=== PATIENT | male | born 1975 ===

== ENCOUNTER 2016-11-16 00:18 | Inpatient (IN) | payer MEDICARE, BC ==
[2016-11-16] MEDS ORDERED: Sodium Chloride 0.9% 1,000 ML IV STA ×2 (00:46→00:53)
[2016-11-16] MEDS ORDERED: Insulin Regular 100 units/ml IV ONE (00:53)
[2016-11-16 01:01] LABS: BASO # 0.1 K/uL (0.0-0.2); BASO % 0.6 % (0.0-2.0); HEMATOCRIT 34.9 % (35.0-51.0); LYMPH # 0.4 K/uL (1.0-4.3); LYMPH % 2.9 % (20.0-40.0); MEAN CELL VOLUME 97.7 fl (80.0-94.0); MEAN CORPUSCULAR HEMOGLOBIN 31.4 pg (27.0-31.0); MEAN CORPUSCULAR HGB CONC 32.1 g/dL (33.0-37.0); MEAN PLATELET VOLUME 8.1 fl (7.2-11.7); MONO # 0.4 K/uL (0.0-0.8); MONO % 2.9 % (0.0-10.0); NEUT # 11.3 K/uL (1.8-7.0); NEUT % 93.6 % (50.0-75.0); PLATELET COUNT 213 K/uL (130-400); RED CELL DISTRIBUTION WIDTH 14.9 % (11.5-14.5); WHITE BLOOD COUNT 12.1 K/uL (4.8-10.8)
[2016-11-16 01:16] LABS: ABG ALLEN TEST YES; ARTERIAL BLOOD GAS HCO3 15.2 mmol/L (21-28); ARTERIAL BLOOD GAS MODE ROOM AIR; ARTERIAL BLOOD GAS PH 7.25 (7.35-7.45); ARTERIAL BLOOD GAS PO2 80 mm/Hg (80-100)
[2016-11-16 01:31] LABS: PARTIAL THROMBOPLASTIN TIME 26.7 SECONDS (23.3-32.5)
--- NOTE | 2016-11-16 01:35 | CP.PCM.HP ---
Past Patient History - Infectious Disease Hx of Infectious Diseases: None - Past Medical History & Family History Past Medical History?: Yes - Past Social History Smoking Status: Heavy Smoker > 10 Cigarettes Daily - CARDIAC Hx Hypercholesterolemia: Yes Hx Hypertension: Yes - PULMONARY Hx Respiratory Disorders: No Other/Comment: (+) smoker - NEUROLOGICAL Hx Neurological Disorder: No - HEENT Hx HEENT Problems: No - RENAL Hx Chronic Kidney Disease: Yes Hx Dialysis: Yes - ENDOCRINE/METABOLIC Hx Endocrine Disorders: Yes Hx Diabetes Mellitus Type 1: Yes (with insulin pump) Hx Diabetes Mellitus Type 2: Yes - HEMATOLOGICAL/ONCOLOGICAL Hx Anemia: Yes Hx Hepatitis A: Yes Hx Human Immunodeficiency Virus (HIV): No - INTEGUMENTARY Hx Dermatological Problems: No Other/Comment: hx of skin abscesses - MUSCULOSKELETAL/RHEUMATOLOGICAL Hx Musculoskeletal Disorders: No Hx Falls: No - GASTROINTESTINAL Hx Gastrointestinal Disorders: Yes Hx Colostomy: Yes (due to int abcess, reversed) Other/Comment: reversed colostomy - GENITOURINARY/GYNECOLOGICAL Hx Genitourinary Disorders: No - PSYCHIATRIC Hx Anxiety: Yes Hx Depression: Yes Hx Substance Use: Yes (fannie) - SURGICAL HISTORY Hx Surgeries: Yes Other/Comment: left AV fistula and reversed colostomy - ANESTHESIA Hx Anesthesia: Yes Hx Anesthesia Reactions: No Hx Malignant Hyperthermia: No Meds Allergies/Adverse Reactions: Allergies Allergy/AdvReac Type Severity Reaction Status Date / Time Penicillins Allergy RASH Verified 11/28/15 14:32 Results - Vital Signs Recent Vital Signs: Last Vital Signs Temp 97.6 F 11/16/16 00:33 Pulse 100 H 11/16/16 00:33 Resp 18 11/16/16 00:33 BP 213/100 H 11/16/16 00:33 Pulse Ox 100 11/16/16 00:33 - Labs Result Diagrams: 11/16/16 00:50 Labs: Laboratory Results - last 24 hr 11/16/16 11/16/16 11/16/16 00:50 00:50 01:02 WBC 12.1 H RBC 3.57 L Hgb 11.2 L Hct 34.9 L MCV 97.7 H MCH 31.4 H MCHC 32.1 L RDW 14.9 H Plt Count 213 MPV 8.1 Neut % (Auto) 93.6 H Lymph % (Auto) 2.9 L Franklin % (Auto) 2.9 Eos % (Auto) 0.0 Baso % (Auto) 0.6 Neut # 11.3 H Lymph # 0.4 L Franklin # 0.4 Eos # 0.0 Baso # 0.1 PT 10.7 INR 1.03 APTT 26.7 pCO2 31 L pO2 80 HCO3 15.2 L ABG pH 7.25 L ABG Total CO2 14.6 L ABG O2 Saturation 98.6 H ABG Base Excess -12.4 L Abilio Test Yes ABG Potassium 6.1 H A-a O2 Difference 31.0 Sodium 121.0 L Chloride 81.0 L Glucose > 750 H* Lactate 2.7 H Vent Mode Room air FiO2 21.0 Crit Value Called To sanjeev Fajardo md Crit Value Called By Sb Crit Value Read Back Y Blood Gas Notified Time 115 Arterial Blood Potassium 6.1 H
[2016-11-16 01:38] LABS: ALB/GLOB RATIO 1.8 (1.0-2.1); ALCOHOL SERUM < 10 mg/dl (0-10); ALKALINE PHOSPHATASE 90 U/L (38-126); ALT/SGPT 18 U/L (21-72); AST/SGOT 21 U/L (17-59); BILIRUBIN,TOTAL 0.9 mg/dl (0.2-1.3); BLOOD UREA NITROGEN 81 mg/dl (9-20); CALCIUM 9.9 mg/dL (8.4-10.2); CHLORIDE 83 mmol/L (98-107); LIPASE 133 U/L (23-300); SODIUM 122 mmol/l (132-148); TOTAL PROTEIN 7.7 G/DL (6.3-8.2)
--- NOTE | 2016-11-16 01:45 | ED PDOC ---
Hyperglycemia/Hypoglycemia Time Seen by Provider: 11/16/16 00:28 Chief Complaint (Nursing): GI Problem Chief Complaint (Provider): Nausea, Vomiting, Hyperglycemia History Per: Patient History/Exam Limitations: no limitations Onset/Duration Of Symptoms: Days (1 day) Current Symptoms Are (Timing): Still Present Current Diabetic Medications: Insulin (Insulin pump) Associated Infectious Symptoms: denies: Cough : The patient does not have any of the infectious symptoms listed except for those marked. Additional Complaint(s): Yoni Davila, a 41 year old male, who has a PMHx of type 1 diabetes( on insulin pump) and end stage renal disease presents to the ED with nausea, vomiting and hyperglycemia (x1day). The patient reports having current vomiting that is now bilious. He also states that this morning while at home his blood sugar levels were elevated. The patient states that he is no longer able to tolerate his regular medications. He states that he has dialysis every Tuesday, Tuesday and Tuesday and does not urinate. Denies associated diarrhea, shortness of breath, chest pain, cough, fever and abdominal pain. Past Medical History Reviewed: Historical Data, Nursing Documentation, Vital Signs Vital Signs: Last Vital Signs Temp 97.6 F 11/16/16 00:33 Pulse 100 H 11/16/16 00:33 Resp 18 11/16/16 00:33 BP 213/100 H 11/16/16 00:33 Pulse Ox 100 11/16/16 00:33 - Medical History PMH: Anemia, Anxiety, Depression, Diabetes (Types I and II), HTN, Hypercholesterolemia, End Stage Renal Disease, Chronic Kidney Disease Denies: Alzheimer's Disease, Arthritis, Asthma, Atrial Fibrillation, Bipolar Disorder, Bronchitis, CAD, Cardia Arrhythmia, CHF, COPD, Crohn's Disease, CVA, Dementia, Diverticulitis, Emphysema, Fractures, Gastritis, Gall Bladder Disease , HIV, Hyperthyroidism, Hypothyroidism, Kidney Stones, Migraine, Mitral Valve Prolapse, Multiple Sclerosis, Osteoporosis, Pancreatitis, Paranoia, Parkinson's Disease, Peripheral Edema, Pneumonia, Post Traumatic Stress Disorder, Pulmonary Embolism, Rheumatoid Arthritis, Schizophrenia, Seizures, Sickle Cell Disease, Sexually Transmitted Disease, Sleep Apnea, TIA - Surgical History Surgical History: Denies: Appendectomy, CABG, Carotid Endarterectomy, Cholecystectomy, Coronary Stent, Pacemaker, Tonsillectomy - Family History Family History: States: Unknown Family Hx - Home Medications Home Medications: Ambulatory Orders Medication Instructions Recorded Clonazepam [Klonopin] 0.5 mg PO DAILY 11/16/16 Fluoxetine HCl [Prozac] 40 mg PO BID 11/16/16 Losartan Potassium [Losartan 50 mg PO DAILY 11/16/16 Potassium] Sevelamer Carbonate [Renvela] 800 mg PO TID 11/16/16 amLODIPine [Norvasc] 10 mg PO DAILY 11/16/16 cloNIDine [Catapres] 0.1 mg PO HS 11/16/16 clonazePAM [Klonopin] 0.5 mg PO MWF 11/16/16 - Allergies Allergies/Adverse Reactions: Allergies Allergy/AdvReac Type Severity Reaction Status Date / Time Penicillins Allergy RASH Verified 11/28/15 14:32 Review of Systems Constitutional: Negative for: Fever Cardiovascular: Negative for: Chest Pain Respiratory: Negative for: Cough, Shortness of Breath Gastrointestinal: Positive for: Nausea, Vomiting. Negative for: Abdominal Pain Psych: Positive for: Anxiety Physical Exam - Reviewed Nursing Documentation Reviewed: Yes Vital Signs Reviewed: Yes - Physical Exam Appears: Positive for: Uncomfortable Skin: Positive for: Normal Color, Warm, Dry Eye Exam: Positive for: Normal appearance, EOMI, PERRL ENT: Positive for: Other (tacky mucous membranes.) Neck: Positive for: Normal, Painless ROM, Supple Cardiovascular/Chest: Positive for: Regular Rate, Rhythm, Chest Non Tender. Negative for: Tachycardia Respiratory: Positive for: Normal Breath Sounds. Negative for: Wheezing, Respiratory Distress Gastrointestinal/Abdominal: Positive for: Normal Exam, Soft. Negative for: Tenderness Back: Positive for: Normal Inspection. Negative for: L CVA Tenderness, R CVA Tenderness Extremity: Positive for: Normal ROM. Negative for: Tenderness, Deformity, Swelling Neurologic/Psych: Positive for: Alert, Oriented, Other (Anxious.) - Laboratory Results Result Diagrams: 11/16/16 00:50 11/16/16 02:30 - ECG O2 Sat by Pulse Oximetry: 100 (RA) Pulse Ox Interpretation: Normal - Critical Care Total Time (In Min): 60 Medical Decision Making Medical Decision Makin Initial Impression: 41 year old female presenting with recurrent vomiting in setting of diabetes. Initial Plan: * ABG shock panel * Alcohol serum * CMP, Lipase * Udip * CBC * PTT * Prothrombin time * CXR * Ativan 2mg IVP * Humulin 10 units IV * Humulin R 100 units IV 6 units/hr * NS 1000ml IV 1000mls/hr * NS 1000ml IV 50mls/hr * Pepcid 20mg IV * Gingerhydration * Reevaluation 0058 Patient will be admitted to ICU. Case referred to Dr. Bridges for ICU placement and family practice resident Marly Reeves. 0152 Labs reviewed clinically significant for marked acidosis on ABG as well as hyperglycemia. IV Bicarbonate ordered. Chemistry reveals low sodium and bicarbonate as well as elevated creatinine which is chronic. Potassium is also elevated at 6.0. __ Scribe Attestation Documented by Fidelia Pichardo acting as a scribe for Brenden Fajardo MD. Provider Attestation All medical record entries made by the Scribe were at my direction and personally dictated by me. I have reviewed the chart and agree that the record accurately reflects my personal performance of the history, physical exam, medical decision making, and the department course for this patient. I have also personally directed, reviewed, and agree with the discharge instructions and disposition Disposition - Clinical Impression Clinical Impression: Diabetic keto-acidosis - Patient ED Disposition Is Patient to be Admitted: Yes - Disposition Disposition Time: 00:58 Condition: GUARDED
[2016-11-16 01:49] LABS: CARBON DIOXIDE 11 mmol/L (22-30); GFR AFRICAN-AMERICAN 4; GLUCOSE,RANDOM 976 mg/dL (75-110)
[2016-11-16] MEDS ORDERED: Dextrose 50% SYRINGE Inj (50 ml) IV PRN ×2 (01:49→05:51)
[2016-11-16] MEDS ORDERED: Glucagon Recombinant 1 mg Inj IM PRN ×2 (01:49→05:51)
[2016-11-16] MEDS ORDERED: Sodium Bicarbonate 7.5% (0.9 MEQ/ML) 50ML INJ IV ONE ×2 (01:50→01:53)
[2016-11-16 01:54] LABS: NEUTROPHIL 96 % (42-75); TOTAL CELLS COUNTED 100
[2016-11-16] MEDS ORDERED: Insulin Regular 100 UNITS in Sodium Chloride 0.9% 100 ML IV SCH (02:00)
--- NOTE | 2016-11-16 02:06 | CP.PCM.HP ---
History of Present Illness - History of Present Illness History of Present Illness: Pt is a 41 y/o male with history of Insulin dependent diabetes, HTN and Renal failure on dialysis (MWF), Depression, pack a day smoker presenting to ED with his mother, most of the history obtained from pt's mother, as pt appears to be lethargic. Per pt's mother, Pt has not eaten in the past two days and has been vomiting all day yesterday; unsure as to why he is vomiting, as Pt has not been sick with any infectious process in the last couple of weeks. Pt admits to still feeling nauseous currently, but denies any chest pain, sob, headache, does report abdominal pain, weakness and feeling overall tired. He did however make it to dialysis on Tuesday11/16/15). PCP- Dr. York Volunteer Services Director - Dr. nuon Present on Admission - Present on Admission Any Indicators Present on Admission: Yes History of Uncontrolled Diabetes: Yes Review of Systems - Review of Systems All systems: reviewed and no additional remarkable complaints except Review of Systems: limited as pt is lethargic Past Patient History - Infectious Disease Hx of Infectious Diseases: None - Past Medical History & Family History Past Medical History?: Yes - Past Social History Smoking Status: Heavy Smoker > 10 Cigarettes Daily - CARDIAC Hx Atrial Fibrillation: No Hx Cardia Arrhythmia: No Hx Congestive Heart Failure: No Hx Hypercholesterolemia: Yes Hx Hypertension: Yes Hx Mitral Valve Prolapse: No Hx Pacemaker: No Hx Peripheral Edema: No - PULMONARY Hx Asthma: No Hx Bronchitis: No Hx Chronic Obstructive Pulmonary Disease (COPD): No Hx Emphysema: No Hx Pneumonia: No Hx Pulmonary Embolism: No Hx Sleep Apnea: No - NEUROLOGICAL Hx Alzheimer's Disease: No Hx Dementia: No Hx Migraine: No Hx Multiple Sclerosis: No Hx Parkinson's Disease: No Hx Seizures: No Hx Transient Ischemic Attacks (TIA): No - HEENT Hx HEENT Problems: No - RENAL Hx Chronic Kidney Disease: Yes Hx Kidney Stones: No - ENDOCRINE/METABOLIC Hx Hyperthyroidism: No Hx Hypothyroidism: No - HEMATOLOGICAL/ONCOLOGICAL Hx Anemia: Yes Hx Human Immunodeficiency Virus (HIV): No Hx Sickle Cell Disease: No - INTEGUMENTARY Hx Dermatological Problems: No Other/Comment: hx of skin abscesses - MUSCULOSKELETAL/RHEUMATOLOGICAL Hx Arthritis: No Hx Fractures: No Hx Osteoporosis: No Hx Rheumatoid Arthritis: No - GASTROINTESTINAL Hx Crohn's Disease: No Hx Diverticulitis: No Hx Gall Bladder Disease: No Hx Gastritis: No Hx Pancreatitis: No - GENITOURINARY/GYNECOLOGICAL Hx Sexually Transmitted Disorders: No - PSYCHIATRIC Hx Anxiety: Yes Hx Bipolar Disorder: No Hx Depression: Yes Hx Paranoia: No Hx Post Traumatic Stress Disorder: No Hx Schizophrenia: No - SURGICAL HISTORY Hx Appendectomy: No Hx Carotid Endarterectomy: No Hx Cholecystectomy: No Hx Coronary Artery Bypass Graft: No Hx Coronary Stent: No Hx Tonsillectomy: No - ANESTHESIA Hx Anesthesia: Yes Hx Anesthesia Reactions: No Hx Malignant Hyperthermia: No Meds Allergies/Adverse Reactions: Allergies Allergy/AdvReac Type Severity Reaction Status Date / Time Penicillins Allergy RASH Verified 11/28/15 14:32 Physical Exam - Constitutional Appears: Toxic - Head Exam Head Exam: NORMOCEPHALIC - Eye Exam Eye Exam: Normal appearance - ENT Exam ENT Exam: Mucous Membranes Dry - Respiratory Exam Respiratory Exam: Clear to Auscultation Bilateral, NORMAL BREATHING PATTERN. absent: Wheezes - Cardiovascular Exam Cardiovascular Exam: REGULAR RHYTHM, +S1, +S2 - GI/Abdominal Exam GI & Abdominal Exam: Normal Bowel Sounds, Soft. absent: Distended, Guarding Additional comments: mild tenderness on deep palpation - Extremities Exam Extremities exam: Negative for: calf tenderness, pedal edema - Back Exam Back exam: absent: CVA tenderness (L), CVA tenderness (R) - Neurological Exam Neurological exam: Oriented x3 Results - Vital Signs Recent Vital Signs: Last Vital Signs Temp 97.6 F 11/16/16 00:33 Pulse 100 H 11/16/16 00:33 Resp 18 11/16/16 00:33 BP 213/100 H 11/16/16 00:33 Pulse Ox 100 11/16/16 01:52 - Labs Result Diagrams: 11/16/16 00:50 11/16/16 00:50 Labs: Laboratory Results - last 24 hr 11/16/16 11/16/16 11/16/16 00:50 00:50 00:50 WBC 12.1 H RBC 3.57 L Hgb 11.2 L Hct 34.9 L MCV 97.7 H MCH 31.4 H MCHC 32.1 L RDW 14.9 H Plt Count 213 MPV 8.1 Neut % (Auto) 93.6 H Lymph % (Auto) 2.9 L Garden % (Auto) 2.9 Eos % (Auto) 0.0 Baso % (Auto) 0.6 Neut # 11.3 H Lymph # 0.4 L Garden # 0.4 Eos # 0.0 Baso # 0.1 Neutrophils % (Manual) 96 H Lymphocytes % (Manual) 2 L Monocytes % (Manual) 2 Platelet Estimate Normal RBC Morphology Normal PT 10.7 INR 1.03 APTT 26.7 pCO2 pO2 HCO3 ABG pH ABG Total CO2 ABG O2 Saturation ABG Base Excess Abilio Test ABG Potassium A-a O2 Difference Glucose Lactate Vent Mode FiO2 Crit Value Called To Crit Value Called By Crit Value Read Back Blood Gas Notified Time Sodium 122 L Potassium 6.0 H Chloride 83 L Carbon Dioxide 11 L* D Anion Gap 34 H BUN 81 H Creatinine 15.1 H* D Est GFR ( Amer) 4 Est GFR (Non-Af Amer) 4 Random Glucose 976 H* D Calcium 9.9 Total Bilirubin 0.9 AST 21 ALT 18 L Alkaline Phosphatase 90 Total Protein 7.7 Albumin 4.9 Globulin 2.8 Albumin/Globulin Ratio 1.8 Lipase 133 Arterial Blood Potassium Alcohol, Quantitative < 10 11/16/16 01:02 WBC RBC Hgb Hct MCV MCH MCHC RDW Plt Count MPV Neut % (Auto) Lymph % (Auto) Garden % (Auto) Eos % (Auto) Baso % (Auto) Neut # Lymph # Garden # Eos # Baso # Neutrophils % (Manual) Lymphocytes % (Manual) Monocytes % (Manual) Platelet Estimate RBC Morphology PT INR APTT pCO2 31 L pO2 80 HCO3 15.2 L ABG pH 7.25 L ABG Total CO2 14.6 L ABG O2 Saturation 98.6 H ABG Base Excess -12.4 L Abilio Test Yes ABG Potassium 6.1 H A-a O2 Difference 31.0 Glucose > 750 H* Lactate 2.7 H Vent Mode Room air FiO2 21.0 Crit Value Called To sanjeev Fajardo md Crit Value Called By Sb Crit Value Read Back Y Blood Gas Notified Time 115 Sodium 121.0 L Potassium Chloride 81.0 L Carbon Dioxide Anion Gap BUN Creatinine Est GFR ( Amer) Est GFR (Non-Af Amer) Random Glucose Calcium Total Bilirubin AST ALT Alkaline Phosphatase Total Protein Albumin Globulin Albumin/Globulin Ratio Lipase Arterial Blood Potassium 6.1 H Alcohol, Quantitative Assessment & Plan - Assessment and Plan (Free Text) Assessment: 41 y/o M with PMH including HTN, IDDM, ESRD (MWF dialysis), Hyperlipidemia, Depression, Anxiety admitted for Diabetic KetoAcidosis Plan: Uncontrolled IDDM in diabetic Ketoacidosis -Pt admitted to ICU -Initial blood glucose: 976 -Blood glucose at initiation of insulin drip : 370 -Discontinue insulin pump in ED -Received 10u insulin bolus in ED -Accucheck Q1hr -Insulin drip started @ 6u/hr -BMP Q6hrs, per ornamental rail installer if 2am labs shows no improvement repeat Q2hrs -NS @ 50cc/hr, changed to D51/2NS when serum glucose is <250 -Replet K+ as needed -Hypoglycemia protocol -Will evaluate for other possible precipitating -Urine culture, blood culture, urine drug screen, lipase, CXR, EKG ESRD on MWF HD -Last dialyzed yesterday (11/15/16) -Nephprology, Dr Nuno consulted Hypertension, uncontrolled -Patient has been non-adherent to medical management -Will resume home meds (lisinopril 10mg po daily, amlodipine 10mg po daily) Bipolar d/o -Resume home psych meds -Prozac 40mg PO daily Tobacco use -Smoking 1PPD -Will start nicotine patch 21mg daily DVT Prophylaxis -Heparin Q12hrs Diet NPO
--- NOTE | 2016-11-16 02:19 | CP.PCM.CON ---
History of Present Illness - History of Present Illness History of Present Illness: CC/Reason for ICU: DKA History largely from patient's mother as patient is somnolent. HPI: This is a 41 y/o male with DM1 on an insulin pump, HTN, HLD, and ESRD on M/ W/F HD who is brought in by mother because he has not eaten in past 2 days and has been having n/v all day today. Per mother, no major changes in diet, no new medications. No f/c/d. No CP, SOB. Per mother, compliant with insulin pump use. Last HD was Tuesday this week (11/15). MHx: HTN, HLD, DM1, ESRD on HD SHx: L arm AVF, colostomy with reversal Allergies: PCN Medications: As per med rec Family Hx: No relevant findings Social Hx: Lives with mother, no EtOH, smokes 10 cigs daily, uses [employer] Past Patient History - Infectious Disease Hx of Infectious Diseases: None - Past Medical History & Family History Past Medical History?: Yes - Past Social History Smoking Status: Heavy Smoker > 10 Cigarettes Daily - CARDIAC Hx Atrial Fibrillation: No Hx Cardia Arrhythmia: No Hx Congestive Heart Failure: No Hx Hypercholesterolemia: Yes Hx Hypertension: Yes Hx Mitral Valve Prolapse: No Hx Pacemaker: No Hx Peripheral Edema: No - PULMONARY Hx Asthma: No Hx Bronchitis: No Hx Chronic Obstructive Pulmonary Disease (COPD): No Hx Emphysema: No Hx Pneumonia: No Hx Pulmonary Embolism: No Hx Sleep Apnea: No - NEUROLOGICAL Hx Alzheimer's Disease: No Hx Dementia: No Hx Migraine: No Hx Multiple Sclerosis: No Hx Parkinson's Disease: No Hx Seizures: No Hx Transient Ischemic Attacks (TIA): No - HEENT Hx HEENT Problems: No - RENAL Hx Chronic Kidney Disease: Yes Hx Kidney Stones: No - ENDOCRINE/METABOLIC Hx Hyperthyroidism: No Hx Hypothyroidism: No - HEMATOLOGICAL/ONCOLOGICAL Hx Anemia: Yes Hx Human Immunodeficiency Virus (HIV): No Hx Sickle Cell Disease: No - INTEGUMENTARY Hx Dermatological Problems: No Other/Comment: hx of skin abscesses - MUSCULOSKELETAL/RHEUMATOLOGICAL Hx Arthritis: No Hx Fractures: No Hx Osteoporosis: No Hx Rheumatoid Arthritis: No - GASTROINTESTINAL Hx Crohn's Disease: No Hx Diverticulitis: No Hx Gall Bladder Disease: No Hx Gastritis: No Hx Pancreatitis: No - GENITOURINARY/GYNECOLOGICAL Hx Sexually Transmitted Disorders: No - PSYCHIATRIC Hx Anxiety: Yes Hx Bipolar Disorder: No Hx Depression: Yes Hx Paranoia: No Hx Post Traumatic Stress Disorder: No Hx Schizophrenia: No - SURGICAL HISTORY Hx Appendectomy: No Hx Carotid Endarterectomy: No Hx Cholecystectomy: No Hx Coronary Artery Bypass Graft: No Hx Coronary Stent: No Hx Tonsillectomy: No - ANESTHESIA Hx Anesthesia: Yes Hx Anesthesia Reactions: No Hx Malignant Hyperthermia: No Meds Allergies/Adverse Reactions: Allergies Allergy/AdvReac Type Severity Reaction Status Date / Time Penicillins Allergy RASH Verified 11/28/15 14:32 - Medications Medications: Current Medications Amlodipine Besylate (Norvasc) 10 mg PO DAILY [facility] Atorvastatin Calcium (Lipitor) 10 mg PO DAILY [facility] Bumetanide (Bumex) 1 mg PO DAILY [facility] Clonazepam (Klonopin) 0.25 mg PO MWF [facility] Dextrose (Dextrose 50% Inj) 0 ml IV STAT PRN; Protocol PRN Reason: Hyglycemia Protocol Dextrose (Glutose 15) 0 gm PO ONCE PRN; Protocol PRN Reason: Hypoglycemia Protocol Fluoxetine HCl (Prozac) 40 mg PO DAILY [facility] Glucagon (Glucagen Diagnostic Kit) 0 mg IM STAT PRN; Protocol PRN Reason: Hypoglycemia Protocol Heparin Sodium (Porcine) (Heparin) 5,000 units SC Q12 DYLAN PRN Reason: Protocol Sodium Chloride (Sodium Chloride 0.9%) 1,000 mls @ 50 mls/hr IV .Q20H STA Stop: 11/16/16 20:52 Last Admin: 11/16/16 01:07 Dose: 50 mls/hr Insulin Human Regular 100 (units/ Sodium Chloride) 101 mls @ 8.24 mls/hr IV .[id number] DYLAN; 0.1 UNITS/KG/HR PRN Reason: Protocol Latanoprost (Xalatan Opht) 1 drop OD HS [facility] Lisinopril (Zestril) 10 mg PO DAILY [facility] Nicotine (Nicoderm Cq) 1 patch TD DAILY [facility] Ondansetron HCl (Zofran Inj) 4 mg IVP Q4 PRN PRN Reason: Nausea/Vomiting Pantoprazole Sodium (Protonix Ec Tab) 40 mg PO DAILY [facility] Sevelamer HCl (Renagel) 2,400 mg PO TID [facility] Zolpidem Tartrate (Ambien) 5 mg PO HS [facility] Physical Exam - Constitutional Appears: No Acute Distress, Chronically Ill - Head Exam Head Exam: ATRAUMATIC, NORMOCEPHALIC - Eye Exam Eye Exam: EOMI, PERRL - ENT Exam ENT Exam: Mucous Membranes Dry - Neck Exam Neck exam: Positive for: Full Rom - Respiratory Exam Respiratory Exam: Clear to Auscultation Bilateral, NORMAL BREATHING PATTERN - Cardiovascular Exam Cardiovascular Exam: REGULAR RHYTHM, +S1, +S2 - GI/Abdominal Exam GI & Abdominal Exam: Normal Bowel Sounds, Soft - Extremities Exam Extremities exam: Positive for: full ROM, normal inspection - Neurological Exam Additional comments: somnolent, but rousable; does not comply very much with history due to somnolence - Skin Skin Exam: Dry, Warm Results - Vital Signs Recent Vital Signs: Last Vital Signs Temp 97.6 F 11/16/16 00:33 Pulse 100 H 11/16/16 00:33 Resp 18 11/16/16 00:33 BP 213/100 H 11/16/16 00:33 Pulse Ox 100 11/16/16 02:12 - Labs Result Diagrams: 11/16/16 00:50 11/16/16 00:50 Labs: Laboratory Results - last 24 hr 11/16/16 11/16/16 11/16/16 00:50 00:50 00:50 WBC 12.1 H RBC 3.57 L Hgb 11.2 L Hct 34.9 L MCV 97.7 H MCH 31.4 H MCHC 32.1 L RDW 14.9 H Plt Count 213 MPV 8.1 Neut % (Auto) 93.6 H Lymph % (Auto) 2.9 L Fajardo % (Auto) 2.9 Eos % (Auto) 0.0 Baso % (Auto) 0.6 Neut # 11.3 H Lymph # 0.4 L Fajardo # 0.4 Eos # 0.0 Baso # 0.1 Neutrophils % (Manual) 96 H Lymphocytes % (Manual) 2 L Monocytes % (Manual) 2 Platelet Estimate Normal RBC Morphology Normal PT 10.7 INR 1.03 APTT 26.7 pCO2 pO2 HCO3 ABG pH ABG Total CO2 ABG O2 Saturation ABG Base Excess Abilio Test ABG Potassium A-a O2 Difference Glucose Lactate Vent Mode FiO2 Crit Value Called To Crit Value Called By Crit Value Read Back Blood Gas Notified Time Sodium 122 L Potassium 6.0 H Chloride 83 L Carbon Dioxide 11 L* D Anion Gap 34 H BUN 81 H Creatinine 15.1 H* D Est GFR ( Amer) 4 Est GFR (Non-Af Amer) 4 Random Glucose 976 H* D Calcium 9.9 Total Bilirubin 0.9 AST 21 ALT 18 L Alkaline Phosphatase 90 Total Protein 7.7 Albumin 4.9 Globulin 2.8 Albumin/Globulin Ratio 1.8 Lipase 133 Arterial Blood Potassium Alcohol, Quantitative < 10 11/16/16 01:02 WBC RBC Hgb Hct MCV MCH MCHC RDW Plt Count MPV Neut % (Auto) Lymph % (Auto) Fajardo % (Auto) Eos % (Auto) Baso % (Auto) Neut # Lymph # Fajardo # Eos # Baso # Neutrophils % (Manual) Lymphocytes % (Manual) Monocytes % (Manual) Platelet Estimate RBC Morphology PT INR APTT pCO2 31 L pO2 80 HCO3 15.2 L ABG pH 7.25 L ABG Total CO2 14.6 L ABG O2 Saturation 98.6 H ABG Base Excess -12.4 L Abilio Test Yes ABG Potassium 6.1 H A-a O2 Difference 31.0 Glucose > 750 H* Lactate 2.7 H Vent Mode Room air FiO2 21.0 Crit Value Called To sanjeev Fajardo md Crit Value Called By Sb Crit Value Read Back Y Blood Gas Notified Time 115 Sodium 121.0 L Potassium Chloride 81.0 L Carbon Dioxide Anion Gap BUN Creatinine Est GFR ( Amer) Est GFR (Non-Af Amer) Random Glucose Calcium Total Bilirubin AST ALT Alkaline Phosphatase Total Protein Albumin Globulin Albumin/Globulin Ratio Lipase Arterial Blood Potassium 6.1 H Alcohol, Quantitative Assessment & Plan - Assessment and Plan (Free Text) Assessment: 41 y/o male, multiple med conditions, being admitted to ICU for DKA. -Admit to ICU -NPO -Cont insulin gtt with hourly accuchecks -Cont NS at 50 cc/hr only so as not to overload; change to d5 1/2 when ser gluc < 250; cont insulin until anion gap closes -Cont q6h labs as long as next (2 AM) lab shows improvement -- if not improved, repeat in 2 hours -Replete K as needed -Defer to primary team for mgmt of other non-critical patient conditions -Consult nephrology, endocrine as needed -Change DVT PPx from lovenox to heparin SQ given creatinine clearance
[2016-11-16 02:40] LABS: POTASSIUM 5.2 MMOL/L (3.6-5.0)
[2016-11-16 02:43] LABS: CALCIUM 9.4 mg/dL (8.4-10.2)
[2016-11-16 03:31] LABS: ABG ALLEN TEST YES; ARTERIAL BLOOD GAS HCO3 20.3 mmol/L (21-28); ARTERIAL BLOOD GAS MODE ROOM AIR; ARTERIAL BLOOD GAS O2 CAPACITY 13.1 mL/dL (16-24); ARTERIAL BLOOD GAS O2 CONTENT 12.9 ML/dL (15-23); ARTERIAL BLOOD GAS PH 7.33 (7.35-7.45); ARTERIAL BLOOD GAS PO2 69 mm/Hg (80-100); HHB 1.3 % (0.0-5.0); METHEMOGLOBIN 1.7 % (0.0-3.0)
[2016-11-16 08:56] LABS: CALCIUM 9.6 mg/dL (8.4-10.2); POTASSIUM 4.8 MMOL/L (3.6-5.0)
[2016-11-16] MEDS ORDERED: Pantoprazole 40 mg EC Tab PO SCH (09:00)
[2016-11-16] MEDS ORDERED: Enoxaparin 30 mg Syringe SC SCH (09:00)
[2016-11-16] MEDS ORDERED: LOVASTATIN 40 MG PO SCH (09:00)
--- NOTE | 2016-11-16 09:47 | CP.PCM.CON ---
History of Present Illness - History of Present Illness History of Present Illness: This patient who is 41 years of age known to me with end stage renal disease on maintenance hemodialysis Tuesday. 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 Patient has been on hemodialysis for period of time couple of years. And is diabetic legally blind and patient has not been compliance with his treatment as outpatient at the dialysis center. Story of hypertension and history of depression and diabetes mellitus the medication has been reviewed and noted Social history patient is still smoker about 1 pack a day. Review of Systems - Constitutional Constitutional: As Per HPI. absent: Chills, Sleep Apnea - EENT Eyes: As Per HPI, Blurred Vision Nose/Mouth/Throat: As Per HPI - Cardiovascular Cardiovascular: absent: Chest Pain, Dyspnea, Orthopnea, Syncope - Respiratory Respiratory: absent: Cough, Dyspnea on Exertion - Gastrointestinal Gastrointestinal: Abdominal Pain, Nausea, Vomiting. absent: Coffee Ground Emesis, Diarrhea - Genitourinary Genitourinary: Nocturia - Musculoskeletal Musculoskeletal: Muscle Weakness - Neurological Neurological: Weakness. absent: Abnormal Movements, Numbness, Focal Weakness, Vertigo - Psychiatric Psychiatric: Depression Past Patient History - Infectious Disease Hx of Infectious Diseases: None - Past Medical History & Family History Past Medical History?: Yes - Past Social History Smoking Status: Heavy Smoker > 10 Cigarettes Daily - CARDIAC Hx Atrial Fibrillation: No Hx Cardia Arrhythmia: No Hx Congestive Heart Failure: No Hx Hypercholesterolemia: Yes Hx Hypertension: Yes Hx Mitral Valve Prolapse: No Hx Pacemaker: No Hx Peripheral Edema: No - PULMONARY Hx Asthma: No Hx Bronchitis: No Hx Chronic Obstructive Pulmonary Disease (COPD): No Hx Emphysema: No Hx Pneumonia: No Hx Pulmonary Embolism: No Hx Sleep Apnea: No - NEUROLOGICAL Hx Alzheimer's Disease: No Hx Dementia: No Hx Migraine: No Hx Multiple Sclerosis: No Hx Parkinson's Disease: No Hx Seizures: No Hx Transient Ischemic Attacks (TIA): No - HEENT Hx HEENT Problems: No - RENAL Hx Chronic Kidney Disease: Yes Hx Kidney Stones: No - ENDOCRINE/METABOLIC Hx Hyperthyroidism: No Hx Hypothyroidism: No - HEMATOLOGICAL/ONCOLOGICAL Hx Anemia: Yes Hx Human Immunodeficiency Virus (HIV): No Hx Sickle Cell Disease: No - INTEGUMENTARY Hx Dermatological Problems: No Other/Comment: H/O skin abscesses - MUSCULOSKELETAL/RHEUMATOLOGICAL Hx Arthritis: No Hx Fractures: No Hx Osteoporosis: No Hx Rheumatoid Arthritis: No - GASTROINTESTINAL Hx Crohn's Disease: No Hx Diverticulitis: No Hx Gall Bladder Disease: No Hx Gastritis: No Hx Pancreatitis: No - GENITOURINARY/GYNECOLOGICAL Hx Sexually Transmitted Disorders: No - PSYCHIATRIC Hx Anxiety: Yes Hx Bipolar Disorder: No Hx Depression: Yes Hx Paranoia: No Hx Post Traumatic Stress Disorder: No Hx Schizophrenia: No - SURGICAL HISTORY Hx Appendectomy: No Hx Carotid Endarterectomy: No Hx Cholecystectomy: No Hx Coronary Artery Bypass Graft: No Hx Coronary Stent: No Hx Tonsillectomy: No - ANESTHESIA Hx Anesthesia: Yes Hx Anesthesia Reactions: No Hx Malignant Hyperthermia: No Meds Allergies/Adverse Reactions: Allergies Allergy/AdvReac Type Severity Reaction Status Date / Time Penicillins Allergy RASH Verified 11/28/15 14:32 - Medications Medications: Current Medications Amlodipine Besylate (Norvasc) 10 mg PO DAILY [facility] Atorvastatin Calcium (Lipitor) 10 mg PO DAILY [facility] Last Admin: 11/16/16 08:38 Dose: 10 mg Bumetanide (Bumex) 1 mg PO DAILY [facility] Clonazepam (Klonopin) 0.25 mg PO MWF [facility] Dextrose (Dextrose 50% Inj) 0 ml IV STAT PRN; Protocol PRN Reason: Hyglycemia Protocol Dextrose (Glutose 15) 0 gm PO ONCE PRN; Protocol PRN Reason: Hypoglycemia Protocol Dextrose (Dextrose 50% Inj) 0 ml IV STAT PRN; Protocol PRN Reason: Hyglycemia Protocol Dextrose (Glutose 15) 0 gm PO ONCE PRN; Protocol PRN Reason: Hypoglycemia Protocol Fluoxetine HCl (Prozac) 40 mg PO DAILY [facility] Glucagon (Glucagen Diagnostic Kit) 0 mg IM STAT PRN; Protocol PRN Reason: Hypoglycemia Protocol Glucagon (Glucagen Diagnostic Kit) 0 mg IM STAT PRN; Protocol PRN Reason: Hypoglycemia Protocol Heparin Sodium (Porcine) (Heparin) 5,000 units SC Q12 DYLAN PRN Reason: Protocol Last Admin: 11/16/16 08:34 Dose: 5,000 units Sodium Chloride (Sodium Chloride 0.9%) 1,000 mls @ 50 mls/hr IV .Q20H STA Stop: 11/16/16 20:52 Last Admin: 11/16/16 01:07 Dose: 50 mls/hr Insulin Human Regular 100 (units/ Sodium Chloride) 101 mls @ 8.24 mls/hr IV .[id number] DYLAN; 0.1 UNITS/KG/HR PRN Reason: Protocol Last Titration: 11/16/16 08:35 Dose: 0.07 units/kg/hr, 6 mls/hr Insulin Human Regular 100 (units/ Sodium Chloride) 101 mls @ 5.05 mls/hr IVPB .Q20H DYLAN; 5 UNITS/HR PRN Reason: Protocol Latanoprost (Xalatan Opht) 1 drop OD HS [facility] Lisinopril (Zestril) 10 mg PO DAILY [facility] Nicotine (Nicoderm Cq) 1 patch TD DAILY [facility] Last Admin: 11/16/16 08:33 Dose: 1 patch Ondansetron HCl (Zofran Inj) 4 mg IVP Q4 PRN PRN Reason: Nausea/Vomiting Pantoprazole Sodium (Protonix Ec Tab) 40 mg PO DAILY [facility] Sevelamer HCl (Renagel) 2,400 mg PO TID [facility] Last Admin: 11/16/16 08:37 Dose: 2,400 mg Zolpidem Tartrate (Ambien) 5 mg PO HS [facility] Physical Exam - Constitutional Appears: No Acute Distress - ENT Exam ENT Exam: Mucous Membranes Moist - Respiratory Exam Respiratory Exam: NORMAL BREATHING PATTERN. absent: Chest Wall Tenderness - Cardiovascular Exam Cardiovascular Exam: REGULAR RHYTHM. absent: JVD, Rubs - GI/Abdominal Exam GI & Abdominal Exam: Normal Bowel Sounds. absent: Guarding - Extremities Exam Extremities exam: Negative for: calf tenderness - Back Exam Back exam: absent: CVA tenderness (L), CVA tenderness (R) - Neurological Exam Neurological exam: Alert Results - Vital Signs Recent Vital Signs: Last Vital Signs Temp 98.2 F 11/16/16 07:36 Pulse 83 11/16/16 07:36 Resp 14 11/16/16 07:36 BP 184/95 H 11/16/16 07:36 Pulse Ox 98 11/16/16 07:36 - Labs Result Diagrams: 11/16/16 00:50 11/16/16 08:25 Labs: Laboratory Results - last 24 hr 11/16/16 11/16/16 11/16/16 01:02 01:25 02:30 pCO2 31 L pO2 80 HCO3 15.2 L ABG pH 7.25 L ABG Total CO2 14.6 L ABG O2 Saturation 98.6 H ABG O2 Content ABG Base Excess -12.4 L ABG Hemoglobin ABG Carboxyhemoglobin POC ABG HHb (Measured) ABG Methemoglobin ABG O2 Capacity Abilio Test Yes ABG Potassium 6.1 H A-a O2 Difference 31.0 Hgb O2 Saturation Sodium 121.0 L 126 L Chloride 81.0 L 87 L Glucose > 750 H* Lactate 2.7 H Vent Mode Room air FiO2 21.0 Crit Value Called To sanjeev Fajardo md Crit Value Called By Sb Crit Value Read Back Y Blood Gas Notified Time 115 Potassium 5.2 H Carbon Dioxide 16 L Anion Gap 28 H BUN 82 H Creatinine 15.3 H* Est GFR ( Amer) 4 Est GFR (Non-Af Amer) 4 POC Glucose (mg/dL) 370 H Random Glucose 840 H* Serum Osmolality Calcium 9.4 Arterial Blood Potassium 6.1 H 11/16/16 11/16/16 11/16/16 03:24 03:27 06:10 pCO2 37 pO2 69 L HCO3 20.3 L ABG pH 7.33 L ABG Total CO2 20.6 L ABG O2 Saturation 98.6 H ABG O2 Content 12.9 L ABG Base Excess -5.9 L ABG Hemoglobin 9.8 L ABG Carboxyhemoglobin 4.0 H POC ABG HHb (Measured) 1.3 ABG Methemoglobin 1.7 ABG O2 Capacity 13.1 L Abilio Test Yes ABG Potassium A-a O2 Difference 34.0 Hgb O2 Saturation 93.0 L Sodium Chloride Glucose Lactate Vent Mode Room air FiO2 21.0 Crit Value Called To sanjeev Fajardo md Crit Value Called By Sb Crit Value Read Back Y Blood Gas Notified Time 331 Potassium Carbon Dioxide Anion Gap BUN Creatinine Est GFR ( Amer) Est GFR (Non-Af Amer) POC Glucose (mg/dL) > 500 H* Random Glucose Serum Osmolality 331 H Calcium Arterial Blood Potassium 11/16/16 11/16/16 11/16/16 07:11 08:00 08:25 pCO2 pO2 HCO3 ABG pH ABG Total CO2 ABG O2 Saturation ABG O2 Content ABG Base Excess ABG Hemoglobin ABG Carboxyhemoglobin POC ABG HHb (Measured) ABG Methemoglobin ABG O2 Capacity Abilio Test ABG Potassium A-a O2 Difference Hgb O2 Saturation Sodium 131 L Chloride 92 L Glucose Lactate Vent Mode FiO2 Crit Value Called To Crit Value Called By Crit Value Read Back Blood Gas Notified Time Potassium 4.8 Carbon Dioxide 21 L Anion Gap 23 H BUN 88 H Creatinine 15.6 H* Est GFR ( Amer) 4 Est GFR (Non-Af Amer) 3 POC Glucose (mg/dL) 427 H* 371 H Random Glucose 356 H Serum Osmolality Calcium 9.6 Arterial Blood Potassium Assessment & Plan (1) CKD (chronic kidney disease) requiring chronic dialysis Assessment and Plan: Patient with end stage renal disease on maintenance hemodialysis was very high creatinine over 15 because he is missing dialysis treatment and time. He need hemodialysis as soon as possible order was given consent was taken however the patient is refusing up subacutely positively to have hemodialysis now. After long discussion he said he will see in the next hour or tomorrow he may change his mind still remain open? Diabetic ketoacidosis patient is being treated with IV drip with insulin and intravenous fluid To continue on antihypertensive medication and the rest of the medication as well that he has been taken at home Status: Chronic (2) Diabetic keto-acidosis Status: Acute
--- NOTE | 2016-11-16 10:33 | CP.CCUPN ---
<Ita Freemangilmar - Last Filed: 11/16/16 15:44> CCU Subjective - Physician Review Subjective (Free Text): 11/16/16 10:30 Patient seen and examined at bedside and discussed with attending during ICU rounds. Patient appears comfortably laying in bed. He denies any further nausea or vomiting episodes since admission and has tolerated small amount of PO this morning. Patient remains on insulin drip with improvement in blood glucose. Patient has improving anion gap and is receiving IV fluids at 50cc/hr. He missed his last scheduled dialysis due to feeling ill but has dialysis scheduled for today. Patient denies fevers, chills, chest pain, sob or abdominal pain. CCU Objective - Vital Signs / Intake & Output Vital Signs (Last 4 hours): Vital Signs Temp Pulse Resp BP Pulse Ox 11/16/16 10:00 82 12 181/90 H 99 11/16/16 07:36 98.2 F 83 14 184/95 H 98 11/16/16 06:34 100 Intake and Output (Last 8hrs): Intake & Output 11/15/16 11/16/16 11/16/16 22:59 06:59 14:59 Intake Total 5 Balance 5 Intake: IV 5 - Physical Exam Head: Positive for: Atraumatic, Normocephalic Pupils: Positive for: PERRL Extroacular Muscles: Positive for: EOMI Conjunctiva: Positive for: Normal Mouth: Positive for: Moist Mucous Membranes (dry) Respiratory/Chest: Positive for: Clear to Auscultation, Good Air Exchange. Negative for: Respiratory Distress, Accessory Muscle Use, Wheezes Cardiovascular: Positive for: Regular Rate and Rhythm, Normal S1, S2 Abdomen: Positive for: Normal Bowel Sounds, Other (Abdomen soft). Negative for : Tenderness, Distention, Rebound Upper Extremity: Positive for: NORMAL PULSES, Capillary Refill < 2s Lower Extremity: Positive for: Normal Inspection. Negative for: Edema, CALF TENDERNESS Neurological: Positive for: CN II-XII Intact, Other (Mild tremor upper extremity ) Skin: Positive for: Warm, Dry Psychiatric: Positive for: Alert, Oriented x 3 - Medications Active Medications: Active Medications Generic Name Dose Route Start Last Admin Trade Name Freq PRN Reason Stop Dose Admin Amlodipine Besylate 10 mg 11/16/16 09:00 Norvasc PO DAILY DYLAN Atorvastatin Calcium 10 mg 11/16/16 09:00 11/16/16 08:38 Lipitor PO 10 mg DAILY DYLAN Administration Bumetanide 1 mg 11/16/16 09:00 Bumex PO DAILY DLYAN Clonazepam 0.25 mg 11/17/16 09:00 Klonopin PO MWF DYLAN Dextrose 0 ml 11/16/16 01:49 Dextrose 50% Inj IV STAT PRN Hyglycemia Protocol Protocol Dextrose 0 gm 11/16/16 01:49 Glutose 15 PO ONCE PRN Hypoglycemia Protocol Protocol Dextrose 0 ml 11/16/16 05:51 Dextrose 50% Inj IV STAT PRN Hyglycemia Protocol Protocol Dextrose 0 gm 11/16/16 05:51 Glutose 15 PO ONCE PRN Hypoglycemia Protocol Protocol Fluoxetine HCl 40 mg 11/16/16 09:00 Prozac PO DAILY DYLAN Glucagon 0 mg 11/16/16 01:49 Glucagen Diagnostic Kit IM STAT PRN Hypoglycemia Protocol Protocol Glucagon 0 mg 11/16/16 05:51 Glucagen Diagnostic Kit IM STAT PRN Hypoglycemia Protocol Protocol Heparin Sodium (Porcine) 5,000 units 11/16/16 09:00 11/16/16 08:34 Heparin SC 5,000 units Q12 DYLAN Administration Protocol Sodium Chloride 1,000 mls @ 50 mls/hr 11/16/16 00:53 11/16/16 01:07 Sodium Chloride 0.9% IV 11/16/16 20:52 50 mls/hr .Q20H STA Administration Insulin Human Regular 100 101 mls @ 8.24 mls/hr 11/16/16 02:00 11/16/16 10:05 units/ Sodium Chloride IV 0.03 units/kg/hr .[id number] DYLAN 3 mls/hr Protocol Titration 0.1 UNITS/KG/HR Insulin Human Regular 100 101 mls @ 5.05 mls/hr 11/16/16 06:00 units/ Sodium Chloride IVPB .Q20H DYLAN Protocol 5 UNITS/HR Latanoprost 1 drop 11/16/16 22:00 Xalatan Opht OD HS DYLAN Lisinopril 10 mg 11/16/16 09:00 Zestril PO DAILY [facility] Nicotine 1 patch 11/16/16 09:00 11/16/16 08:33 Nicoderm Cq TD 1 patch DAILY DYLAN Administration Ondansetron HCl 4 mg 11/16/16 01:53 Zofran Inj IVP Q4 PRN Nausea/Vomiting Pantoprazole Sodium 40 mg 11/16/16 09:00 Protonix Ec Tab PO DAILY DYLAN Sevelamer HCl 2,400 mg 11/16/16 09:00 11/16/16 08:37 Renagel PO 2,400 mg TID DYLAN Administration Zolpidem Tartrate 5 mg 11/16/16 22:00 Ambien PO HS DYLAN - Patient Studies Lab Studies: Lab Studies 11/16/16 11/16/16 11/16/16 Range/Units 09:09 08:59 08:25 pCO2 (35-45) mm/Hg pO2 (80-100) mm/Hg HCO3 (21-28) mmol/L ABG pH (7.35-7.45) ABG Total CO2 (22-28) mmol/L ABG O2 Saturation (95-98) % ABG O2 Content (15-23) ML/dL ABG Base Excess (-2.0-3.0) mmol/L ABG Hemoglobin (11.7-17.4) g/dL ABG Carboxyhemoglobin (0.5-1.5) % POC ABG HHb (Measured) (0.0-5.0) % ABG Methemoglobin (0.0-3.0) % ABG O2 Capacity (16-24) mL/dL Abilio Test ABG Potassium (3.6-5.2) mmol/L A-a O2 Difference mm/Hg Hgb O2 Saturation (95.0-98.0) % Sodium 131 L (132-148) mmol/L Chloride 92 L (98-107) mmol/L Glucose (75-110) mg/dL Lactate (0.7-2.1) mmol/L Vent Mode FiO2 % Crit Value Called To Crit Value Called By Crit Value Read Back Blood Gas Notified Time Potassium 4.8 (3.6-5.0) MMOL/L Carbon Dioxide 21 L (22-30) mmol/L Anion Gap 23 H (10-20) BUN 88 H (9-20) mg/dl Creatinine 15.6 H* (0.8-1.5) mg/dL Est GFR ( Amer) 4 Est GFR (Non-Af Amer) 3 POC Glucose (mg/dL) 213 H 310 H (65-110) mg/dL Random Glucose 356 H (75-110) mg/dL Serum Osmolality (272-300) mosm/kg Calcium 9.6 (8.4-10.2) mg/dL Arterial Blood Potassium (3.6-5.2) mmol/L 11/16/16 11/16/16 11/16/16 Range/Units 08:00 07:11 06:10 pCO2 (35-45) mm/Hg pO2 (80-100) mm/Hg HCO3 (21-28) mmol/L ABG pH (7.35-7.45) ABG Total CO2 (22-28) mmol/L ABG O2 Saturation (95-98) % ABG O2 Content (15-23) ML/dL ABG Base Excess (-2.0-3.0) mmol/L ABG Hemoglobin (11.7-17.4) g/dL ABG Carboxyhemoglobin (0.5-1.5) % POC ABG HHb (Measured) (0.0-5.0) % ABG Methemoglobin (0.0-3.0) % ABG O2 Capacity (16-24) mL/dL Abilio Test ABG Potassium (3.6-5.2) mmol/L A-a O2 Difference mm/Hg Hgb O2 Saturation (95.0-98.0) % Sodium (132-148) mmol/L Chloride (98-107) mmol/L Glucose (75-110) mg/dL Lactate (0.7-2.1) mmol/L Vent Mode FiO2 % Crit Value Called To Crit Value Called By Crit Value Read Back Blood Gas Notified Time Potassium (3.6-5.0) MMOL/L Carbon Dioxide (22-30) mmol/L Anion Gap (10-20) BUN (9-20) mg/dl Creatinine (0.8-1.5) mg/dL Est GFR ( Amer) Est GFR (Non-Af Amer) POC Glucose (mg/dL) 371 H 427 H* > 500 H* (65-110) mg/dL Random Glucose (75-110) mg/dL Serum Osmolality (272-300) mosm/kg Calcium (8.4-10.2) mg/dL Arterial Blood Potassium (3.6-5.2) mmol/L 05/30/17 05/30/17 05/30/17 Range/Units 03:27 03:24 02:30 pCO2 37 (35-45) mm/Hg pO2 69 L (80-100) mm/Hg HCO3 20.3 L (21-28) mmol/L ABG pH 7.33 L (7.35-7.45) ABG Total CO2 20.6 L (22-28) mmol/L ABG O2 Saturation 98.6 H (95-98) % ABG O2 Content 12.9 L (15-23) ML/dL ABG Base Excess -5.9 L (-2.0-3.0) mmol/L ABG Hemoglobin 9.8 L (11.7-17.4) g/dL ABG Carboxyhemoglobin 4.0 H (0.5-1.5) % POC ABG HHb (Measured) 1.3 (0.0-5.0) % ABG Methemoglobin 1.7 (0.0-3.0) % ABG O2 Capacity 13.1 L (16-24) mL/dL Abilio Test Yes ABG Potassium (3.6-5.2) mmol/L A-a O2 Difference 34.0 mm/Hg Hgb O2 Saturation 93.0 L (95.0-98.0) % Sodium 126 L (132-148) mmol/L Chloride 87 L (98-107) mmol/L Glucose (75-110) mg/dL Lactate (0.7-2.1) mmol/L Vent Mode Room air FiO2 21.0 % Crit Value Called To sanjeev Fajardo md Crit Value Called By Sb Crit Value Read Back Y Blood Gas Notified Time 331 Potassium 5.2 H (3.6-5.0) MMOL/L Carbon Dioxide 16 L (22-30) mmol/L Anion Gap 28 H (10-20) BUN 82 H (9-20) mg/dl Creatinine 15.3 H* (0.8-1.5) mg/dL Est GFR ( Amer) 4 Est GFR (Non-Af Amer) 4 POC Glucose (mg/dL) (65-110) mg/dL Random Glucose 840 H* (75-110) mg/dL Serum Osmolality 331 H (272-300) mosm/kg Calcium 9.4 (8.4-10.2) mg/dL Arterial Blood Potassium (3.6-5.2) mmol/L 11/16/16 11/16/16 Range/Units 01:25 01:02 pCO2 31 L (35-45) mm/Hg pO2 80 (80-100) mm/Hg HCO3 15.2 L (21-28) mmol/L ABG pH 7.25 L (7.35-7.45) ABG Total CO2 14.6 L (22-28) mmol/L ABG O2 Saturation 98.6 H (95-98) % ABG O2 Content (15-23) ML/dL ABG Base Excess -12.4 L (-2.0-3.0) mmol/L ABG Hemoglobin (11.7-17.4) g/dL ABG Carboxyhemoglobin (0.5-1.5) % POC ABG HHb (Measured) (0.0-5.0) % ABG Methemoglobin (0.0-3.0) % ABG O2 Capacity (16-24) mL/dL Abilio Test Yes ABG Potassium 6.1 H (3.6-5.2) mmol/L A-a O2 Difference 31.0 mm/Hg Hgb O2 Saturation (95.0-98.0) % Sodium 121.0 L (132-148) mmol/L Chloride 81.0 L (98-107) mmol/L Glucose > 750 H* (75-110) mg/dL Lactate 2.7 H (0.7-2.1) mmol/L Vent Mode Room air FiO2 21.0 % Crit Value Called To sanjeev Fajardo md Crit Value Called By Sb Crit Value Read Back Y Blood Gas Notified Time 115 Potassium (3.6-5.0) MMOL/L Carbon Dioxide (22-30) mmol/L Anion Gap (10-20) BUN (9-20) mg/dl Creatinine (0.8-1.5) mg/dL Est GFR ( Amer) Est GFR (Non-Af Amer) POC Glucose (mg/dL) 370 H (65-110) mg/dL Random Glucose (75-110) mg/dL Serum Osmolality (272-300) mosm/kg Calcium (8.4-10.2) mg/dL Arterial Blood Potassium 6.1 H (3.6-5.2) mmol/L Laboratory Results - last 24 hr 11/16/16 11/16/16 11/16/16 01:02 01:25 02:30 pCO2 31 L pO2 80 HCO3 15.2 L ABG pH 7.25 L ABG Total CO2 14.6 L ABG O2 Saturation 98.6 H ABG O2 Content ABG Base Excess -12.4 L ABG Hemoglobin ABG Carboxyhemoglobin POC ABG HHb (Measured) ABG Methemoglobin ABG O2 Capacity Abilio Test Yes ABG Potassium 6.1 H A-a O2 Difference 31.0 Hgb O2 Saturation Sodium 121.0 L 126 L Chloride 81.0 L 87 L Glucose > 750 H* Lactate 2.7 H Vent Mode Room air FiO2 21.0 Crit Value Called To sanjeev Fajardo md Crit Value Called By Sb Crit Value Read Back Y Blood Gas Notified Time 115 Potassium 5.2 H Carbon Dioxide 16 L Anion Gap 28 H BUN 82 H Creatinine 15.3 H* Est GFR ( Amer) 4 Est GFR (Non-Af Amer) 4 POC Glucose (mg/dL) 370 H Random Glucose 840 H* Serum Osmolality Calcium 9.4 Arterial Blood Potassium 6.1 H 11/16/16 11/16/16 11/16/16 03:24 03:27 06:10 pCO2 37 pO2 69 L HCO3 20.3 L ABG pH 7.33 L ABG Total CO2 20.6 L ABG O2 Saturation 98.6 H ABG O2 Content 12.9 L ABG Base Excess -5.9 L ABG Hemoglobin 9.8 L ABG Carboxyhemoglobin 4.0 H POC ABG HHb (Measured) 1.3 ABG Methemoglobin 1.7 ABG O2 Capacity 13.1 L Abilio Test Yes ABG Potassium A-a O2 Difference 34.0 Hgb O2 Saturation 93.0 L Sodium Chloride Glucose Lactate Vent Mode Room air FiO2 21.0 Crit Value Called To sanjeev Fajardo md Crit Value Called By Sb Crit Value Read Back Y Blood Gas Notified Time 331 Potassium Carbon Dioxide Anion Gap BUN Creatinine Est GFR ( Amer) Est GFR (Non-Af Amer) POC Glucose (mg/dL) > 500 H* Random Glucose Serum Osmolality 331 H Calcium Arterial Blood Potassium 11/16/16 11/16/16 11/16/16 07:11 08:00 08:25 pCO2 pO2 HCO3 ABG pH ABG Total CO2 ABG O2 Saturation ABG O2 Content ABG Base Excess ABG Hemoglobin ABG Carboxyhemoglobin POC ABG HHb (Measured) ABG Methemoglobin ABG O2 Capacity Abilio Test ABG Potassium A-a O2 Difference Hgb O2 Saturation Sodium 131 L Chloride 92 L Glucose Lactate Vent Mode FiO2 Crit Value Called To Crit Value Called By Crit Value Read Back Blood Gas Notified Time Potassium 4.8 Carbon Dioxide 21 L Anion Gap 23 H BUN 88 H Creatinine 15.6 H* Est GFR ( Amer) 4 Est GFR (Non-Af Amer) 3 POC Glucose (mg/dL) 427 H* 371 H Random Glucose 356 H Serum Osmolality Calcium 9.6 Arterial Blood Potassium 11/16/16 11/16/16 08:59 09:09 pCO2 pO2 HCO3 ABG pH ABG Total CO2 ABG O2 Saturation ABG O2 Content ABG Base Excess ABG Hemoglobin ABG Carboxyhemoglobin POC ABG HHb (Measured) ABG Methemoglobin ABG O2 Capacity Abilio Test ABG Potassium A-a O2 Difference Hgb O2 Saturation Sodium Chloride Glucose Lactate Vent Mode FiO2 Crit Value Called To Crit Value Called By Crit Value Read Back Blood Gas Notified Time Potassium Carbon Dioxide Anion Gap BUN Creatinine Est GFR ( Amer) Est GFR (Non-Af Amer) POC Glucose (mg/dL) 310 H 213 H Random Glucose Serum Osmolality Calcium Arterial Blood Potassium Fingerstick Blood Sugar Results: 213 Review of Systems - Constitutional Constitutional: absent: Fever, Chills - EENT Eyes: absent: Change in Vision Nose/Mouth/Throat: Dry Mouth - Cardiovascular Cardiovascular: absent: Chest Pain, Dyspnea, Leg Edema, Palpitations - Respiratory Respiratory: Cough (nonproductive). absent: Hemoptysis, Wheezing - Gastrointestinal Gastrointestinal: absent: Abdominal Pain, Diarrhea, Nausea, Vomiting - Neurological Neurological: absent: Confusion, Dizziness, Focal Weakness - Psychiatric Psychiatric: Anxiety Critical Care Progress Note - Nutrition Nutrition: Nutrition Category Date Time Status Diabetic [Consistent Carbohydrate] [DIET] Diets 11/16/16 Lunch Active Renal Diet [DIET] Diets 11/16/16 Breakfast Active Assessment/Plan - Assessment and Plan (Free Text) Assessment: 41 y/o M with PMH including HTN, Insulin dependent DM, ESRD on HD (MWF) presented to ED with mother for lethargy associated with persistent nausea and vomiting. Patient was found to have elevated blood glucose in excess of 800 and diagnosed with DKA. He was given bolus of insulin and IVF and admitted to ICU for further management. Plan: DKA -Undetermined triggering event -Initial blood glucose 840 -Received 10 units IV insulin and 1L NS fluid bolus in ED -Currently on insulin drip at 3units/hr -Most recent blood glucose improved to 356 -IVF running at 50cc/hr -ABG pH improving from 7.25 > 7.33 -Anion gap improving from 34 > 23 -Potassium at 5.2 -Zofran prn for nausea/vomiting -Will continue IVF and insulin drip and monitor for improvement in anion gap IDDM -On insulin pump at home which has been held during admission -Patient has been following with endocrinology as outpatient and reports pump was recently determined to be functioning properly -Currently on insulin drip -Will follow blood glucose closely -Hypoglycemia protocol ESRD -On MWF schedule however missed his last dialysis due to feeling ill -Plan for dialysis today -Cr 15.3 -Nephrology consulted HTN -Poorly controlled at the moment -Likely aggravated by inability to tolerate his PO medications over the last 1- 2 days -Resume norvasc 10mg PO daily + Lisinopril 10mg PO daily DVT Prophylaxis -Heparin 5000u SC Q12h <Niranjan Rdz - Last Filed: 11/16/16 15:55> CCU Objective - Vital Signs / Intake & Output Vital Signs (Last 4 hours): Vital Signs Temp Pulse Resp BP Pulse Ox 11/16/16 14:50 86 171/81 H 11/16/16 14:49 85 171/81 H 11/16/16 14:00 81 166/69 H 100 11/16/16 12:00 98.2 F 77 31 H 153/82 H 100 Intake and Output (Last 8hrs): Intake & Output 11/16/16 11/16/16 11/16/16 06:59 14:59 22:59 Intake Total 5 Balance 5 Intake: IV 5 - Medications Active Medications: Active Medications Generic Name Dose Route Start Last Admin Trade Name Freq PRN Reason Stop Dose Admin Amlodipine Besylate 10 mg 11/16/16 09:00 11/16/16 14:50 Norvasc PO 10 mg DAILY DYLAN Administration Atorvastatin Calcium 10 mg 11/16/16 09:00 11/16/16 08:38 Lipitor PO 10 mg DAILY DYLAN Administration Bumetanide 1 mg 11/16/16 09:00 11/16/16 14:48 Bumex PO 1 mg DAILY DYLAN Administration Clonazepam 0.25 mg 11/17/16 09:00 Klonopin PO MWF DYLAN Dextrose 0 ml 11/16/16 01:49 Dextrose 50% Inj IV STAT PRN Hyglycemia Protocol Protocol Dextrose 0 gm 11/16/16 01:49 Glutose 15 PO ONCE PRN Hypoglycemia Protocol Protocol Dextrose 0 ml 11/16/16 05:51 Dextrose 50% Inj IV STAT PRN Hyglycemia Protocol Protocol Dextrose 0 gm 11/16/16 05:51 Glutose 15 PO ONCE PRN Hypoglycemia Protocol Protocol Fluoxetine HCl 40 mg 11/16/16 09:00 11/16/16 14:48 Prozac PO 40 mg DAILY DYLAN Administration Glucagon 0 mg 11/16/16 01:49 Glucagen Diagnostic Kit IM STAT PRN Hypoglycemia Protocol Protocol Glucagon 0 mg 11/16/16 05:51 Glucagen Diagnostic Kit IM STAT PRN Hypoglycemia Protocol Protocol Heparin Sodium (Porcine) 5,000 units 11/16/16 09:00 11/16/16 08:34 Heparin SC 5,000 units Q12 DYLAN Administration Protocol Sodium Chloride 1,000 mls @ 50 mls/hr 11/16/16 00:53 11/16/16 01:07 Sodium Chloride 0.9% IV 11/16/16 20:52 50 mls/hr .Q20H STA Administration Insulin Human Regular 100 101 mls @ 5.05 mls/hr 11/16/16 06:00 units/ Sodium Chloride IVPB .Q20H DYLAN Protocol 5 UNITS/HR Insulin Human Regular 0 units 11/16/16 14:09 Humulin R SC Q6 DYLAN Protocol Latanoprost 1 drop 11/16/16 22:00 Xalatan Opht OD HS DYLAN Lisinopril 10 mg 11/16/16 09:00 11/16/16 14:49 Zestril PO 10 mg DAILY DYLAN Administration Nicotine 1 patch 11/16/16 09:00 11/16/16 08:33 Nicoderm Cq TD 1 patch DAILY DYLAN Administration Ondansetron HCl 4 mg 11/16/16 01:53 Zofran Inj IVP Q4 PRN Nausea/Vomiting Pantoprazole Sodium 40 mg 11/16/16 09:00 11/16/16 14:51 Protonix Ec Tab PO 40 mg DAILY DYLAN Administration Sevelamer HCl 2,400 mg 11/16/16 09:00 11/16/16 13:29 Renagel PO 2,400 mg TID DYLAN Administration Zolpidem Tartrate 5 mg 11/16/16 22:00 Ambien PO HS DYLAN - Patient Studies Lab Studies: Lab Studies 11/16/16 11/16/16 11/16/16 Range/Units 15:46 14:20 14:02 pCO2 (35-45) mm/Hg pO2 (80-100) mm/Hg HCO3 (21-28) mmol/L ABG pH (7.35-7.45) ABG Total CO2 (22-28) mmol/L ABG O2 Saturation (95-98) % ABG O2 Content (15-23) ML/dL ABG Base Excess (-2.0-3.0) mmol/L ABG Hemoglobin (11.7-17.4) g/dL ABG Carboxyhemoglobin (0.5-1.5) % POC ABG HHb (Measured) (0.0-5.0) % ABG Methemoglobin (0.0-3.0) % ABG O2 Capacity (16-24) mL/dL Abilio Test ABG Potassium (3.6-5.2) mmol/L A-a O2 Difference mm/Hg Hgb O2 Saturation (95.0-98.0) % Sodium 136 (132-148) mmol/L Chloride 94 L (98-107) mmol/L Glucose (75-110) mg/dL Lactate (0.7-2.1) mmol/L Vent Mode FiO2 % Crit Value Called To Crit Value Called By Crit Value Read Back Blood Gas Notified Time Potassium 3.9 (3.6-5.0) MMOL/L Carbon Dioxide 27 (22-30) mmol/L Anion Gap 19 (10-20) BUN 28 H (9-20) mg/dl Creatinine 5.8 H (0.8-1.5) mg/dL Est GFR ( Amer) 13 Est GFR (Non-Af Amer) 11 POC Glucose (mg/dL) 273 H 240 H (65-110) mg/dL Random Glucose 204 H (75-110) mg/dL Serum Osmolality (272-300) mosm/kg Calcium 9.1 (8.4-10.2) mg/dL Arterial Blood Potassium (3.6-5.2) mmol/L 11/16/16 11/16/16 11/16/16 Range/Units 13:25 12:02 10:57 pCO2 (35-45) mm/Hg pO2 (80-100) mm/Hg HCO3 (21-28) mmol/L ABG pH (7.35-7.45) ABG Total CO2 (22-28) mmol/L ABG O2 Saturation (95-98) % ABG O2 Content (15-23) ML/dL ABG Base Excess (-2.0-3.0) mmol/L ABG Hemoglobin (11.7-17.4) g/dL ABG Carboxyhemoglobin (0.5-1.5) % POC ABG HHb (Measured) (0.0-5.0) % ABG Methemoglobin (0.0-3.0) % ABG O2 Capacity (16-24) mL/dL Abilio Test ABG Potassium (3.6-5.2) mmol/L A-a O2 Difference mm/Hg Hgb O2 Saturation (95.0-98.0) % Sodium (132-148) mmol/L Chloride (98-107) mmol/L Glucose (75-110) mg/dL Lactate (0.7-2.1) mmol/L Vent Mode FiO2 % Crit Value Called To Crit Value Called By Crit Value Read Back Blood Gas Notified Time Potassium (3.6-5.0) MMOL/L Carbon Dioxide (22-30) mmol/L Anion Gap (10-20) BUN (9-20) mg/dl Creatinine (0.8-1.5) mg/dL Est GFR ( Amer) Est GFR (Non-Af Amer) POC Glucose (mg/dL) 154 H 122 H 143 H (65-110) mg/dL Random Glucose (75-110) mg/dL Serum Osmolality (272-300) mosm/kg Calcium (8.4-10.2) mg/dL Arterial Blood Potassium (3.6-5.2) mmol/L 11/16/16 11/16/16 11/16/16 Range/Units 09:09 08:59 08:25 pCO2 (35-45) mm/Hg pO2 (80-100) mm/Hg HCO3 (21-28) mmol/L ABG pH (7.35-7.45) ABG Total CO2 (22-28) mmol/L ABG O2 Saturation (95-98) % ABG O2 Content (15-23) ML/dL ABG Base Excess (-2.0-3.0) mmol/L ABG Hemoglobin (11.7-17.4) g/dL ABG Carboxyhemoglobin (0.5-1.5) % POC ABG HHb (Measured) (0.0-5.0) % ABG Methemoglobin (0.0-3.0) % ABG O2 Capacity (16-24) mL/dL Abilio Test ABG Potassium (3.6-5.2) mmol/L A-a O2 Difference mm/Hg Hgb O2 Saturation (95.0-98.0) % Sodium 131 L (132-148) mmol/L Chloride 92 L (98-107) mmol/L Glucose (75-110) mg/dL Lactate (0.7-2.1) mmol/L Vent Mode FiO2 % Crit Value Called To Crit Value Called By Crit Value Read Back Blood Gas Notified Time Potassium 4.8 (3.6-5.0) MMOL/L Carbon Dioxide 21 L (22-30) mmol/L Anion Gap 23 H (10-20) BUN 88 H (9-20) mg/dl Creatinine 15.6 H* (0.8-1.5) mg/dL Est GFR ( Amer) 4 Est GFR (Non-Af Amer) 3 POC Glucose (mg/dL) 213 H 310 H (65-110) mg/dL Random Glucose 356 H (75-110) mg/dL Serum Osmolality (272-300) mosm/kg Calcium 9.6 (8.4-10.2) mg/dL Arterial Blood Potassium (3.6-5.2) mmol/L 11/16/16 11/16/16 11/16/16 Range/Units 08:00 07:11 06:10 pCO2 (35-45) mm/Hg pO2 (80-100) mm/Hg HCO3 (21-28) mmol/L ABG pH (7.35-7.45) ABG Total CO2 (22-28) mmol/L ABG O2 Saturation (95-98) % ABG O2 Content (15-23) ML/dL ABG Base Excess (-2.0-3.0) mmol/L ABG Hemoglobin (11.7-17.4) g/dL ABG Carboxyhemoglobin (0.5-1.5) % POC ABG HHb (Measured) (0.0-5.0) % ABG Methemoglobin (0.0-3.0) % ABG O2 Capacity (16-24) mL/dL Abilio Test ABG Potassium (3.6-5.2) mmol/L A-a O2 Difference mm/Hg Hgb O2 Saturation (95.0-98.0) % Sodium (132-148) mmol/L Chloride (98-107) mmol/L Glucose (75-110) mg/dL Lactate (0.7-2.1) mmol/L Vent Mode FiO2 % Crit Value Called To Crit Value Called By Crit Value Read Back Blood Gas Notified Time Potassium (3.6-5.0) MMOL/L Carbon Dioxide (22-30) mmol/L Anion Gap (10-20) BUN (9-20) mg/dl Creatinine (0.8-1.5) mg/dL Est GFR ( Amer) Est GFR (Non-Af Amer) POC Glucose (mg/dL) 371 H 427 H* > 500 H* (65-110) mg/dL Random Glucose (75-110) mg/dL Serum Osmolality (272-300) mosm/kg Calcium (8.4-10.2) mg/dL Arterial Blood Potassium (3.6-5.2) mmol/L 11/16/16 11/16/16 11/16/16 Range/Units 03:27 03:24 02:30 pCO2 37 (35-45) mm/Hg pO2 69 L (80-100) mm/Hg HCO3 20.3 L (21-28) mmol/L ABG pH 7.33 L (7.35-7.45) ABG Total CO2 20.6 L (22-28) mmol/L ABG O2 Saturation 98.6 H (95-98) % ABG O2 Content 12.9 L (15-23) ML/dL ABG Base Excess -5.9 L (-2.0-3.0) mmol/L ABG Hemoglobin 9.8 L (11.7-17.4) g/dL ABG Carboxyhemoglobin 4.0 H (0.5-1.5) % POC ABG HHb (Measured) 1.3 (0.0-5.0) % ABG Methemoglobin 1.7 (0.0-3.0) % ABG O2 Capacity 13.1 L (16-24) mL/dL Abilio Test Yes ABG Potassium (3.6-5.2) mmol/L A-a O2 Difference 34.0 mm/Hg Hgb O2 Saturation 93.0 L (95.0-98.0) % Sodium 126 L (132-148) mmol/L Chloride 87 L (98-107) mmol/L Glucose (75-110) mg/dL Lactate (0.7-2.1) mmol/L Vent Mode Room air FiO2 21.0 % Crit Value Called To sanjeev Fajardo md Crit Value Called By Sb Crit Value Read Back Y Blood Gas Notified Time 331 Potassium 5.2 H (3.6-5.0) MMOL/L Carbon Dioxide 16 L (22-30) mmol/L Anion Gap 28 H (10-20) BUN 82 H (9-20) mg/dl Creatinine 15.3 H* (0.8-1.5) mg/dL Est GFR ( Amer) 4 Est GFR (Non-Af Amer) 4 POC Glucose (mg/dL) (65-110) mg/dL Random Glucose 840 H* (75-110) mg/dL Serum Osmolality 331 H (272-300) mosm/kg Calcium 9.4 (8.4-10.2) mg/dL Arterial Blood Potassium (3.6-5.2) mmol/L 11/16/16 11/16/16 Range/Units 01:25 01:02 pCO2 31 L (35-45) mm/Hg pO2 80 (80-100) mm/Hg HCO3 15.2 L (21-28) mmol/L ABG pH 7.25 L (7.35-7.45) ABG Total CO2 14.6 L (22-28) mmol/L ABG O2 Saturation 98.6 H (95-98) % ABG O2 Content (15-23) ML/dL ABG Base Excess -12.4 L (-2.0-3.0) mmol/L ABG Hemoglobin (11.7-17.4) g/dL ABG Carboxyhemoglobin (0.5-1.5) % POC ABG HHb (Measured) (0.0-5.0) % ABG Methemoglobin (0.0-3.0) % ABG O2 Capacity (16-24) mL/dL Abilio Test Yes ABG Potassium 6.1 H (3.6-5.2) mmol/L A-a O2 Difference 31.0 mm/Hg Hgb O2 Saturation (95.0-98.0) % Sodium 121.0 L (132-148) mmol/L Chloride 81.0 L (98-107) mmol/L Glucose > 750 H* (75-110) mg/dL Lactate 2.7 H (0.7-2.1) mmol/L Vent Mode Room air FiO2 21.0 % Crit Value Called To sanjeev Fajardo md Crit Value Called By Sb Crit Value Read Back Y Blood Gas Notified Time 115 Potassium (3.6-5.0) MMOL/L Carbon Dioxide (22-30) mmol/L Anion Gap (10-20) BUN (9-20) mg/dl Creatinine (0.8-1.5) mg/dL Est GFR ( Amer) Est GFR (Non-Af Amer) POC Glucose (mg/dL) 370 H (65-110) mg/dL Random Glucose (75-110) mg/dL Serum Osmolality (272-300) mosm/kg Calcium (8.4-10.2) mg/dL Arterial Blood Potassium 6.1 H (3.6-5.2) mmol/L Laboratory Results - last 24 hr 11/16/16 11/16/16 11/16/16 01:02 01:25 02:30 pCO2 31 L pO2 80 HCO3 15.2 L ABG pH 7.25 L ABG Total CO2 14.6 L ABG O2 Saturation 98.6 H ABG O2 Content ABG Base Excess -12.4 L ABG Hemoglobin ABG Carboxyhemoglobin POC ABG HHb (Measured) ABG Methemoglobin ABG O2 Capacity Abilio Test Yes ABG Potassium 6.1 H A-a O2 Difference 31.0 Hgb O2 Saturation Sodium 121.0 L 126 L Chloride 81.0 L 87 L Glucose > 750 H* Lactate 2.7 H Vent Mode Room air FiO2 21.0 Crit Value Called To sanjeev Fajardo md Crit Value Called By Sb Crit Value Read Back Y Blood Gas Notified Time 115 Potassium 5.2 H Carbon Dioxide 16 L Anion Gap 28 H BUN 82 H Creatinine 15.3 H* Est GFR ( Amer) 4 Est GFR (Non-Af Amer) 4 POC Glucose (mg/dL) 370 H Random Glucose 840 H* Serum Osmolality Calcium 9.4 Arterial Blood Potassium 6.1 H 11/16/16 11/16/16 11/16/16 03:24 03:27 06:10 pCO2 37 pO2 69 L HCO3 20.3 L ABG pH 7.33 L ABG Total CO2 20.6 L ABG O2 Saturation 98.6 H ABG O2 Content 12.9 L ABG Base Excess -5.9 L ABG Hemoglobin 9.8 L ABG Carboxyhemoglobin 4.0 H POC ABG HHb (Measured) 1.3 ABG Methemoglobin 1.7 ABG O2 Capacity 13.1 L Abilio Test Yes ABG Potassium A-a O2 Difference 34.0 Hgb O2 Saturation 93.0 L Sodium Chloride Glucose Lactate Vent Mode Room air FiO2 21.0 Crit Value Called To sanjeev Fajardo md Crit Value Called By Sb Crit Value Read Back Y Blood Gas Notified Time 331 Potassium Carbon Dioxide Anion Gap BUN Creatinine Est GFR ( Amer) Est GFR (Non-Af Amer) POC Glucose (mg/dL) > 500 H* Random Glucose Serum Osmolality 331 H Calcium Arterial Blood Potassium 11/16/16 11/16/16 11/16/16 07:11 08:00 08:25 pCO2 pO2 HCO3 ABG pH ABG Total CO2 ABG O2 Saturation ABG O2 Content ABG Base Excess ABG Hemoglobin ABG Carboxyhemoglobin POC ABG HHb (Measured) ABG Methemoglobin ABG O2 Capacity Abilio Test ABG Potassium A-a O2 Difference Hgb O2 Saturation Sodium 131 L Chloride 92 L Glucose Lactate Vent Mode FiO2 Crit Value Called To Crit Value Called By Crit Value Read Back Blood Gas Notified Time Potassium 4.8 Carbon Dioxide 21 L Anion Gap 23 H BUN 88 H Creatinine 15.6 H* Est GFR ( Amer) 4 Est GFR (Non-Af Amer) 3 POC Glucose (mg/dL) 427 H* 371 H Random Glucose 356 H Serum Osmolality Calcium 9.6 Arterial Blood Potassium 11/16/16 11/16/16 11/16/16 08:59 09:09 10:57 pCO2 pO2 HCO3 ABG pH ABG Total CO2 ABG O2 Saturation ABG O2 Content ABG Base Excess ABG Hemoglobin ABG Carboxyhemoglobin POC ABG HHb (Measured) ABG Methemoglobin ABG O2 Capacity Abilio Test ABG Potassium A-a O2 Difference Hgb O2 Saturation Sodium Chloride Glucose Lactate Vent Mode FiO2 Crit Value Called To Crit Value Called By Crit Value Read Back Blood Gas Notified Time Potassium Carbon Dioxide Anion Gap BUN Creatinine Est GFR ( Amer) Est GFR (Non-Af Amer) POC Glucose (mg/dL) 310 H 213 H 143 H Random Glucose Serum Osmolality Calcium Arterial Blood Potassium 11/16/16 11/16/16 11/16/16 12:02 13:25 14:02 pCO2 pO2 HCO3 ABG pH ABG Total CO2 ABG O2 Saturation ABG O2 Content ABG Base Excess ABG Hemoglobin ABG Carboxyhemoglobin POC ABG HHb (Measured) ABG Methemoglobin ABG O2 Capacity Abilio Test ABG Potassium A-a O2 Difference Hgb O2 Saturation Sodium Chloride Glucose Lactate Vent Mode FiO2 Crit Value Called To Crit Value Called By Crit Value Read Back Blood Gas Notified Time Potassium Carbon Dioxide Anion Gap BUN Creatinine Est GFR ( Amer) Est GFR (Non-Af Amer) POC Glucose (mg/dL) 122 H 154 H 240 H Random Glucose Serum Osmolality Calcium Arterial Blood Potassium 11/16/16 11/16/16 14:20 15:46 pCO2 pO2 HCO3 ABG pH ABG Total CO2 ABG O2 Saturation ABG O2 Content ABG Base Excess ABG Hemoglobin ABG Carboxyhemoglobin POC ABG HHb (Measured) ABG Methemoglobin ABG O2 Capacity Abilio Test ABG Potassium A-a O2 Difference Hgb O2 Saturation Sodium 136 Chloride 94 L Glucose Lactate Vent Mode FiO2 Crit Value Called To Crit Value Called By Crit Value Read Back Blood Gas Notified Time Potassium 3.9 Carbon Dioxide 27 Anion Gap 19 BUN 28 H Creatinine 5.8 H Est GFR ( Amer) 13 Est GFR (Non-Af Amer) 11 POC Glucose (mg/dL) 273 H Random Glucose 204 H Serum Osmolality Calcium 9.1 Arterial Blood Potassium Critical Care Progress Note - Nutrition Nutrition: Nutrition Category Date Time Status Diabetic [Consistent Carbohydrate] [DIET] Diets 11/16/16 Lunch Active Renal Diet [DIET] Diets 11/16/16 Dinner Active Attending/Attestation - Attestation I have personally seen and examined this patient.: Yes I have fully participated in the care of the patient.: Yes I have reviewed all pertinent clinical information: Yes Notes (Text): 11/16/16 15:55 Today: Wednesday, November 16, 2016 The Patient was seen and examined at the bedside, Medical records reviewed, all clinical/lab/hemodynamic/radiographic data were reviewed and management issues were discussed and formulated, Events reviewed Pain issues, skin care, head of the bed elevation, GI/DVT prophylaxis, glycemic control were addressed. I discussed the plan of care with the resident and agree with the above history and physical and assessment/plans as transcribed in Dr. Freeman note
--- NOTE | 2016-11-16 10:50 | CP.PCM.PN ---
Subjective - Date & Time of Evaluation Date of Evaluation: 11/16/16 Time of Evaluation: 07:00 - Subjective Subjective: Reevaluated this morning 41 y/o M admitted for DKA seen at bedside in not acute distress, patient states he feels better than yesterday, he denies any particular events leading to his decompensation. He was feeling nauseated yesterday the whole day and had vomiting, denies cough, runny nose, dysuria. He states he usually tries to be compliant with diet. Denies CP, SOB, headache. He was using his insulin pump at home and is unaware of any pump malfunction. Objective - Vital Signs/Intake and Output Vital Signs (last 24 hours): Temp Pulse Resp BP Pulse Ox 98.2 F 82 12 181/90 H 99 11/16/16 07:36 11/16/16 10:00 11/16/16 10:00 11/16/16 10:00 11/16/16 10:00 Intake and Output: 11/16/16 11/16/16 06:59 18:59 Intake Total 5 Balance 5 - Medications Medications: Current Medications Amlodipine Besylate (Norvasc) 10 mg PO DAILY [facility] Atorvastatin Calcium (Lipitor) 10 mg PO DAILY [facility] Last Admin: 11/16/16 08:38 Dose: 10 mg Bumetanide (Bumex) 1 mg PO DAILY [facility] Clonazepam (Klonopin) 0.25 mg PO MWF [facility] Dextrose (Dextrose 50% Inj) 0 ml IV STAT PRN; Protocol PRN Reason: Hyglycemia Protocol Dextrose (Glutose 15) 0 gm PO ONCE PRN; Protocol PRN Reason: Hypoglycemia Protocol Dextrose (Dextrose 50% Inj) 0 ml IV STAT PRN; Protocol PRN Reason: Hyglycemia Protocol Dextrose (Glutose 15) 0 gm PO ONCE PRN; Protocol PRN Reason: Hypoglycemia Protocol Fluoxetine HCl (Prozac) 40 mg PO DAILY [facility] Glucagon (Glucagen Diagnostic Kit) 0 mg IM STAT PRN; Protocol PRN Reason: Hypoglycemia Protocol Glucagon (Glucagen Diagnostic Kit) 0 mg IM STAT PRN; Protocol PRN Reason: Hypoglycemia Protocol Heparin Sodium (Porcine) (Heparin) 5,000 units SC Q12 [facility] PRN Reason: Protocol Last Admin: 11/16/16 08:34 Dose: 5,000 units Sodium Chloride (Sodium Chloride 0.9%) 1,000 mls @ 50 mls/hr IV .Q20H STA Stop: 11/16/16 20:52 Last Admin: 11/16/16 01:07 Dose: 50 mls/hr Insulin Human Regular 100 (units/ Sodium Chloride) 101 mls @ 8.24 mls/hr IV .[id number] DYLAN; 0.1 UNITS/KG/HR PRN Reason: Protocol Last Titration: 11/16/16 10:05 Dose: 0.03 units/kg/hr, 3 mls/hr Insulin Human Regular 100 (units/ Sodium Chloride) 101 mls @ 5.05 mls/hr IVPB .Q20H DYLAN; 5 UNITS/HR PRN Reason: Protocol Latanoprost (Xalatan Opht) 1 drop OD HS [facility] Lisinopril (Zestril) 10 mg PO DAILY [facility] Nicotine (Nicoderm Cq) 1 patch TD DAILY [facility] Last Admin: 11/16/16 08:33 Dose: 1 patch Ondansetron HCl (Zofran Inj) 4 mg IVP Q4 PRN PRN Reason: Nausea/Vomiting Pantoprazole Sodium (Protonix Ec Tab) 40 mg PO DAILY [facility] Sevelamer HCl (Renagel) 2,400 mg PO TID [facility] Last Admin: 11/16/16 08:37 Dose: 2,400 mg Zolpidem Tartrate (Ambien) 5 mg PO HS [facility] - Labs Labs: 11/16/16 08:25 PT 10.7 SECONDS (9.6-11.2) 11/16/16 00:50 INR 1.03 (0.92-1.08) 11/16/16 00:50 APTT 26.7 SECONDS (23.3-32.5) 11/16/16 00:50 - Constitutional Appears: No Acute Distress - Eye Exam Eye Exam: PERRL - ENT Exam ENT Exam: Mucous Membranes Moist - Respiratory Exam Respiratory Exam: Clear to Ausculation Bilateral, NORMAL BREATHING PATTERN - Cardiovascular Exam Cardiovascular Exam: REGULAR RHYTHM, +S1, +S2. absent: Gallop - GI/Abdominal Exam GI & Abdominal Exam: Soft, Normal Bowel Sounds. absent: Tenderness - Neurological Exam Neurological Exam: Alert, Awake, Oriented x3, Reflexes Normal - Psychiatric Exam Psychiatric exam: Normal Affect, Normal Mood - Skin Skin Exam: Warm Assessment and Plan - Assessment and Plan (Free Text) Assessment: 41 y/o M with PMH of HTN, IDDM, ESRD on HD (MWF) admitted for DKA and CKD DKA in Uncontrolled IDDM -Improved -Initial blood glucose: 976 -Accucheck Q1hr -On Insulin drip @ 5u/hr -NS @ 50cc/hr, changed to D51/2NS when serum glucose is <250 -F/U Urine culture, blood culture, urine drug screen, lipase, CXR, EKG ESRD on HD -Did not go for HD yesterday because he was feeling bad. -For HD today -Nephprology, Dr Salomon consulted Hypertension, uncontrolled -C/w lisinopril 10mg po daily, amlodipine 10mg po daily Tobacco use -Smoking 1PPD -Tobacco abuse: nicotine patch daily DVT Prophylaxis -Heparin Q12hrs
[2016-11-16] MEDS ORDERED: Insulin Regular 100 units/ml SC SCH (14:09)
[2016-11-16 15:01] LABS: CALCIUM 9.1 mg/dL (8.4-10.2); POTASSIUM 3.9 MMOL/L (3.6-5.0)
--- NOTE | 2016-11-16 15:33 | RAD ---
PROCEDURE: CHEST RADIOGRAPH, 1 VIEW HISTORY: admit COMPARISON: 07/28/2016. FINDINGS: LUNGS: Clear. PLEURA: No pneumothorax or pleural fluid seen. CARDIOVASCULAR: No radiographic findings to suggest acute or significant cardiovascular disease. OSSEOUS STRUCTURES: No significant abnormalities. VISUALIZED UPPER ABDOMEN: Normal. OTHER FINDINGS: None. IMPRESSION: No active disease. No acute/significant interval changes.
[2016-11-16 16:06] VITALS: BP 164/67; PULSE 91; RESP 12; TEMP 99.5; O2SAT 99
[2016-11-16] MEDS ORDERED: Latanoprost 0.005% Opht SOUTION OD SCH (22:00)
--- NOTE | 2016-11-18 06:36 | CARD ---
APPROVED REPORT EKG Measurement Heart [id number] TN [id number] <Conclusion> Normal sinus rhythm Voltage criteria for left ventricular hypertrophy Prolonged QT Abnormal ECG
== END 2016-11-16 16:40 | disposition left against medical advice (07) | DRG 637 ==
LOC: H.ER 00:18 → H.ERHOLD 00:58 → H.ICU/CCU 05:31
PROVIDERS: ADMIT Family Medicine Geriatric Medicine; ATTEND Family Medicine Geriatric Medicine
PROC: 5A1D00Z (ICD-10-PCS; principal; 2016-11-16)
DX: E10.10 Type 1 diabetes mellitus with ketoacidosis without coma (principal); N18.6 End stage renal disease; I12.0 Hypertensive chronic kidney disease with stage 5 chronic kidney disease or end stage renal disease; E10.22 Type 1 diabetes mellitus with diabetic chronic kidney disease; H54.8 Legal blindness, as defined in USA; E78.5 Hyperlipidemia, unspecified; E78.00 Pure hypercholesterolemia, unspecified; F41.9 Anxiety disorder, unspecified; F31.9 Bipolar disorder, unspecified; Z96.41 Presence of insulin pump (external) (internal); F17.210 Nicotine dependence, cigarettes, uncomplicated; Z79.4 Long term (current) use of insulin; Z99.2 Dependence on renal dialysis; Z91.15 Patient's noncompliance with renal dialysis; Z88.0 Allergy status to penicillin

== ENCOUNTER 2018-06-09 19:33 | Emergency (ER) | payer MEDICARE ==
[2018-06-09 19:38] VITALS: RESP 18
--- NOTE | 2018-06-09 20:13 | ED PDOC ---
HPI:Nausea, Vomiting, Diarrhea Time Seen by Provider: 06/09/18 19:41 Chief Complaint (Nursing): GI Problem Chief Complaint (Provider): Vomiting History Per: Patient History/Exam Limitations: no limitations Onset/Duration Of Symptoms: Hrs Current Symptoms Are (Timing): Still Present Additional Complaint(s): 43 y/o male with a PMHx of Type I DM and ESRD (on dialysis M,W,F) presents to the ED for evaluation of intractable vomiting since 9 AM this morning. Patient states vomiting is non-bloody, non-bilious and associated with two episodes of water, non-bloody diarrhea, lightheadedness and generalized weakness. Patient states he missed his dialysis today because he had too many episodes of vomiting. Patient reports vomiting is similar to previous episodes of hospita lizations secondary to intractable vomiting. Patient admits to regular marijuana use. Otherwise, patient denies chest pain, shortness of breath, abdominal pain and leg swelling. PMD: [facility] Past Medical History Reviewed: Historical Data, Nursing Documentation, Vital Signs Vital Signs: Last Vital Signs Temp 97.9 F 06/09/18 19:34 Pulse 68 06/09/18 19:34 Resp 18 06/09/18 19:34 BP 233/91 H 06/09/18 19:34 Pulse Ox 97 06/09/18 19:34 - Medical History PMH: Anemia, Anxiety, Depression, Diabetes (Types I), HTN, Hypercholesterolemia, End Stage Renal Disease (on dialysis), Chronic Kidney Disease Denies: Alzheimer's Disease, Arthritis, Asthma, Atrial Fibrillation, Bipolar Disorder, Bronchitis, CAD, Cardia Arrhythmia, CHF, COPD, Crohn's Disease, CVA, Dementia, Diverticulitis, Emphysema, Fractures, Gastritis, Gall Bladder Disease, HIV, Hyperthyroidism, Hypothyroidism, Kidney Stones, Migraine, Mitral Valve Prolapse, Multiple Sclerosis, Osteoporosis, Pancreatitis, Paranoia, Parkinson's Disease, Peripheral Edema, Pneumonia, Post Traumatic Stress Disorder, Pulmonary Embolism, Rheumatoid Arthritis, Schizophrenia, Seizures, Sickle Cell Disease, Sexually Transmitted Disease, Sleep Apnea, TIA - Surgical History Surgical History: No Surg Hx Denies: Appendectomy, CABG, Carotid Endarterectomy, Cholecystectomy, Coronary Stent, Pacemaker, Tonsillectomy - Family History Family History: States: Unknown Family Hx - Social History Drugs: Other (Regular marijuana use) - Home Medications Home Medications: Ambulatory Orders Medication Instructions Recorded RX: Clonazepam [Klonopin] 0.5 mg PO DAILY 11/16/16 RX: Fluoxetine HCl [Prozac] 40 mg PO BID 11/16/16 RX: Losartan Potassium 50 mg PO DAILY 11/16/16 RX: amLODIPine [Norvasc] 10 mg PO DAILY 11/16/16 RX: cloNIDine [Catapres] 0.1 mg PO HS 11/16/16 RX: Omeprazole 40 mg PO DAILY 03/06/17 RX: Aspirin [Aspirin Chewable] 81 mg PO DAILY 03/07/17 RX: Clopidogrel [Plavix] 75 mg PO DAILY tab 03/07/17 RX: Sevelamer Carbonate [Renvela] 2,400 mg PO TIDCC tab 03/07/17 Ondansetron ODT [Zofran ODT] 1 odt PO Q6 PRN #20 odt 06/09/18 - Allergies Allergies/Adverse Reactions: Allergies Allergy/AdvReac Type Severity Reaction Status Date / Time Penicillins Allergy RASH Verified 06/09/18 19:34 Review of Systems ROS Statement: Except As Marked, All Systems Reviewed And Found Negative (as per HPI) Constitutional: Positive for: Weakness Cardiovascular: Negative for: Chest Pain Respiratory: Negative for: Shortness of Breath Gastrointestinal: Positive for: Vomiting, Diarrhea. Negative for: Abdominal Pain Musculoskeletal: Negative for: Leg Pain (swelling) Neurological: Positive for: Other (lightheadedness) Physical Exam - Reviewed Nursing Documentation Reviewed: Yes Vital Signs Reviewed: Yes - Physical Exam Appears: Positive for: Non-toxic, In Acute Distress (in acute gastrointestinal distress) Head Exam: Positive for: ATRAUMATIC, NORMOCEPHALIC Skin: Positive for: Warm, Dry Eye Exam: Positive for: EOMI, PERRL ENT: Positive for: Other (Dry Mucous Membranes) Neck: Positive for: Painless ROM, Supple Cardiovascular/Chest: Positive for: Regular Rate, Rhythm. Negative for: Murmur Respiratory: Positive for: Normal Breath Sounds. Negative for: Respiratory Distress Gastrointestinal/Abdominal: Positive for: Soft. Negative for: Tenderness Back: Positive for: Normal Inspection. Negative for: Other Extremity: Positive for: Normal ROM. Negative for: Deformity Lymphatic: Negative for: Adenopathy Neurologic/Psych: Positive for: Alert. Negative for: Motor/Sensory Deficits - Laboratory Results Result Diagrams: 06/09/18 20:06 06/09/18 20:06 - ECG O2 Sat by Pulse Oximetry: 97 (RA) Pulse Ox Interpretation: Normal Medical Decision Making Medical Decision Making: Time: 1950 Impression: Intractable Vomiting Differentials include but not limited to gastroparesis, electrolyte abnormality, dehydration, acute on chronic renal failure, hyperglycemia and pancreatitis Plan: -- Type and Screen -- VBG -- EKG -- Alcohol Serum -- CMP -- Lipase -- Magnesium -- Phosphorus -- Troponin I -- CBC with Differentials -- PTT -- Prothrombin Time -- CXR Portable -- Pepcid -- Reglan 10 mg IVPB -- Zofran Inj 8 mg IV -- Blood Culture -- [employer] -- IV Insertion Time: 2243 -- Labs demonstrate stable renal failure. No emergently significant abnormalities. -- Patient stopped vomiting and has tolerated sips of water. At this time, patient feels sleepy but reports improvement in symptoms. Patient is stable for discharge after additional fluid hydration. Scribe Attestation: Documented by Cassia Mendiola, acting as a scribe for Blessing Meier MD. Provider Scribe Attestation: All medical record entries made by the Scribe were at my direction and personally dictated by me. I have reviewed the chart and agree that the record accurately reflects my personal performance of the history, physical exam, medical decision making, and the department course for this patient. I have also personally directed, reviewed, and agree with the discharge instructions and disposition. Disposition - Clinical Impression Clinical Impression: Vomiting - Patient ED Disposition Is Patient to be Admitted: No Counseled Patient/Family Regarding: Studies Performed, Diagnosis, Need For Followup, Rx Given - Disposition Referrals: [facility] [Outside] - 06/12/18 Disposition: Routine/Home Disposition Time: 22:43 Condition: IMPROVED Additional Instructions: PLEASE RESCHEDULE YOUR DIALYSIS SOON POSSIBLE Prescriptions: Ondansetron ODT [Zofran ODT] 1 odt PO Q6 PRN #20 odt PRN Reason: Nausea/Vomiting Instructions: Nausea and Vomiting, Adult (DC)
[2018-06-09 20:24] LABS: BASO # 0.1 K/uL (0.0-0.2); BASO % 0.9 % (0.0-2.0); HEMOGLOBIN 11.6 g/dL (12.0-18.0); LYMPH # 0.5 K/uL (1.0-4.3); LYMPH % 3.3 % (20.0-40.0); MEAN CELL VOLUME 96.7 fl (80.0-94.0); MEAN CORPUSCULAR HEMOGLOBIN 32.2 pg (27.0-31.0); MEAN CORPUSCULAR HGB CONC 33.3 g/dL (33.0-37.0); MEAN PLATELET VOLUME 8.2 fl (7.2-11.7); MONO # 0.3 K/uL (0.0-0.8); MONO % 1.8 % (0.0-10.0); NEUT # 13.7 K/uL (1.8-7.0); NRBC % 0.1 % (0.0-0.0); PLATELET COUNT 271 K/uL (130-400); RBC 3.61 Mil/uL (4.40-5.90); RED CELL DISTRIBUTION WIDTH 15.7 % (11.5-14.5); WHITE BLOOD COUNT 14.5 K/uL (4.8-10.8)
[2018-06-09 20:28] LABS: VENOUS BLOOD GAS BASE EXCESS 7.4 mmol/L (0.0-2.0); VENOUS BLOOD GAS PCO2 44 mmHg (40-60); VENOUS BLOOD GAS PO2 34 mm/Hg (30-55); VENOUS BLOOD PH 7.47 (7.32-7.43)
[2018-06-09 20:50] LABS: PROTHROMBIN TIME 10.8 Seconds (9.8-13.1)
[2018-06-09 20:53] LABS: PARTIAL THROMBOPLASTIN TIME 33.2 Seconds (25.6-37.1)
[2018-06-09 21:03] LABS: ALB/GLOB RATIO 1.4 (1.0-2.1); ALBUMIN 4.8 g/dL (3.5-5.0); ALT/SGPT 30 U/L (21-72); AST/SGOT 34 U/L (17-59); BLOOD UREA NITROGEN 66 mg/dl (9-20); CALCIUM 10.5 mg/dL (8.4-10.2); LIPASE 155 U/L (23-300)
[2018-06-09 21:10] LABS: GFR NON-AFRICAN AMERICAN 7
[2018-06-09 22:02] LABS: LYMPHOCYTE 3 % (20-50); MONOCYTE 2 % (0-10); NEUTROPHIL 95 % (42-75); TOTAL CELLS COUNTED 100
[2018-06-09 22:03] LABS: PLATELET ESTIMATE NORMAL (NORMAL)
[2018-06-09 22:04] LABS: ANISOCYTOSIS SLIGHT; HYPOCHROMIC SLIGHT
[2018-06-09 23:10] VITALS: BP 174/78; TEMP 98.9
[2018-06-10 07:18] VITALS: PULSE 79; O2SAT 97
--- NOTE | 2018-06-10 09:23 | RAD ---
Date of service: 06/09/2018 HISTORY: Missed dialysis vomiting COMPARISON: No prior. FINDINGS: LUNGS: Central pulmonary vasculature is mildly congested possibly due to fluid overload. PLEURA: No significant pleural effusion identified, no pneumothorax apparent. CARDIOVASCULAR: No aortic atherosclerotic calcification present. Heart remains enlarged. Pacemaker/defibrillator wire seen overlying the left cardiac border OSSEOUS STRUCTURES: No significant abnormalities. VISUALIZED UPPER ABDOMEN: Normal. OTHER FINDINGS: None. IMPRESSION: Mild pulmonary vascular congestive changes possibly secondary to fluid overload..
--- NOTE | 2018-06-10 23:52 | CARD ---
APPROVED REPORT Date of service: 06/09/2018 EKG Measurement Heart [id number] [id number] <Conclusion> Sinus rhythm with occasional premature ventricular complexes Voltage criteria for left ventricular hypertrophy Abnormal ECG
== END 2018-06-09 23:30 | disposition home or self-care (01) ==
LOC: H.ER 19:33
DX: R11.10 Vomiting, unspecified (principal); E11.22 Type 2 diabetes mellitus with diabetic chronic kidney disease; E11.65 Type 2 diabetes mellitus with hyperglycemia; Z86.59 Personal history of other mental and behavioral disorders; N18.6 End stage renal disease; Z99.2 Dependence on renal dialysis; Z79.82 Long term (current) use of aspirin; Z88.0 Allergy status to penicillin; I12.0 Hypertensive chronic kidney disease with stage 5 chronic kidney disease or end stage renal disease
CPT/HCPCS: 71045; 80053; 82803; 82948; 83690; 83735; 84100; 84484; 85025; 85610; 85730; 86850; 86900; 87040; 93005; 96374; 99285; G0480; J2405; J2765

== ENCOUNTER 2018-06-24 01:12 | Inpatient (IN) | payer MEDICARE ==
[2018-06-24 02:21] LABS: BASO # 0.1 K/uL (0.0-0.2); BASO % 1.4 % (0.0-2.0); EOS % 0.3 % (0.0-4.0); HEMOGLOBIN 11.4 g/dL (12.0-18.0); LYMPH # 0.7 K/uL (1.0-4.3); LYMPH % 7.5 % (20.0-40.0); MEAN CORPUSCULAR HEMOGLOBIN 32.4 pg (27.0-31.0); MEAN PLATELET VOLUME 7.8 fl (7.2-11.7); MONO # 0.6 K/uL (0.0-0.8); MONO % 7.1 % (0.0-10.0); NEUT # 7.3 K/uL (1.8-7.0); NEUT % 83.7 % (50.0-75.0); PLATELET COUNT 266 K/uL (130-400); RBC 3.53 Mil/uL (4.40-5.90); RED CELL DISTRIBUTION WIDTH 15.7 % (11.5-14.5); WHITE BLOOD COUNT 8.8 K/uL (4.8-10.8)
[2018-06-24 02:29] LABS: ABG ALLEN TEST YES; ARTERIAL BLOOD GAS HCO3 32.6 mmol/L (21-28); ARTERIAL BLOOD GAS O2 SAT 93.3 % (95-98); ARTERIAL BLOOD GAS PCO2 43 mm/Hg (35-45); ARTERIAL BLOOD GAS PH 7.51 (7.35-7.45); ARTERIAL BLOOD GAS PO2 54 mm/Hg (80-100); ARTERIAL BLOOD GAS TCO2 35.6 mmol/L (22-28)
[2018-06-24 02:30] LABS: PROTHROMBIN TIME 11.5 Seconds (9.8-13.1)
[2018-06-24 02:32] LABS: PARTIAL THROMBOPLASTIN TIME 34.4 Seconds (25.6-37.1)
[2018-06-24 03:22] LABS: ALB/GLOB RATIO 1.3 (1.0-2.1); ALBUMIN 4.7 g/dL (3.5-5.0); CALCIUM 9.9 mg/dL (8.4-10.2)
[2018-06-24] MEDS ORDERED: DiphenhydrAMINE 50 mg/ml Inj IV STA (03:27)
[2018-06-24] MEDS ORDERED: Labetalol 5mg/ml (4ml) IVP STA (03:27)
[2018-06-24] MEDS ORDERED: DiphenhydrAMINE 50 mg/ml Inj ONE (03:35)
[2018-06-24] MEDS ORDERED: Labetalol 5mg/ml (4ml) ONE (03:35)
[2018-06-24] MEDS ORDERED: Promethazine 25MG/50ML NS IVPB STA (03:36)
--- NOTE | 2018-06-24 03:37 | ED PDOC ---
HPI:Nausea, Vomiting, Diarrhea Time Seen by Provider: 06/24/18 01:26 Chief Complaint (Nursing): GI Problem Chief Complaint (Provider): GI Problem History Per: Patient History/Exam Limitations: no limitations Onset/Duration Of Symptoms: Hrs (x4) Associated Symptoms: Nausea, Vomiting, Other (Elevated blood pressure) Additional Complaint(s): 43 y/o male with history of renal disease, type 1 diabetes and hypertension presents to ER for evaluation of vomiting and nausea onset 4 hrs ago. Patient reports he is on dialysis on Tuesday, Tuesday and Tuesday. He stat es he is unable to take his normal antihypertensive medicine due to symptoms. Patient reports elevated blood pressure reading at home. He states he had multiple episodes of vomiting but only 1 with blood. Patient denies abdominal pain, fever, cough, shortness of breath or chest pain. PMD: [facility] Past Medical History Reviewed: Historical Data, Nursing Documentation, Vital Signs Vital Signs: Last Vital Signs Temp 97.9 F 06/24/18 01:14 Pulse 95 H 06/24/18 01:14 Resp 18 06/24/18 01:14 BP 248/109 H 06/24/18 01:14 Pulse Ox 100 06/24/18 01:14 - Medical History PMH: Anemia, Anxiety, Depression, Diabetes (Types I), HTN, Hypercholesterolemia, End Stage Renal Disease (on dialysis), Chronic Kidney Disease Denies: Alzheimer's Disease, Arthritis, Asthma, Atrial Fibrillation, Bipolar Disorder, Bronchitis, CAD, Cardia Arrhythmia, CHF, COPD, Crohn's Disease, CVA, Dementia, Diverticulitis, Emphysema, Fractures, Gastritis, Gall Bladder Disease, HIV, Hyperthyroidism, Hypothyroidism, Kidney Stones, Migraine, Mitral Valve Prolapse, Multiple Sclerosis, Osteoporosis, Pancreatitis, Paranoia, Parkinson's Disease, Peripheral Edema, Pneumonia, Post Traumatic Stress Disorder, Pulmonary Embolism, Rheumatoid Arthritis, Schizophrenia, Seizures, Sickle Cell Disease, Sexually Transmitted Disease, Sleep Apnea, TIA - Surgical History Surgical History: Denies: Appendectomy, CABG, Carotid Endarterectomy, Cholecystectomy, Coronary Stent, Pacemaker, Tonsillectomy - Family History Family History: States: Unknown Family Hx - Social History Current smoker - smoking cessation education provided: No Alcohol: None Drugs: Denies - Home Medications Home Medications: Ambulatory Orders Medication Instructions Recorded Clonazepam [Klonopin] 0.5 mg PO DAILY 11/16/16 Fluoxetine HCl [Prozac] 40 mg PO BID 11/16/16 Losartan Potassium 50 mg PO DAILY 11/16/16 amLODIPine [Norvasc] 10 mg PO DAILY 11/16/16 cloNIDine [Catapres] 0.1 mg PO HS 11/16/16 Omeprazole 40 mg PO DAILY 03/06/17 Aspirin [Aspirin Chewable] 81 mg PO DAILY 03/07/17 Clopidogrel [Plavix] 75 mg PO DAILY tab 03/07/17 Sevelamer Carbonate [Renvela] 2,400 mg PO TIDCC tab 03/07/17 Ondansetron ODT [Zofran ODT] 1 odt PO Q6 PRN #20 odt 06/09/18 - Allergies Allergies/Adverse Reactions: Allergies Allergy/AdvReac Type Severity Reaction Status Date / Time Penicillins Allergy RASH Verified 06/09/18 19:34 Review of Systems ROS Statement: Except As Marked, All Systems Reviewed And Found Negative Constitutional: Positive for: Other (Elevated blood pressure). Negative for: Fever Cardiovascular: Negative for: Chest Pain Respiratory: Negative for: Cough, Shortness of Breath Gastrointestinal: Positive for: Nausea, Vomiting. Negative for: Abdominal Pain Physical Exam - Reviewed Nursing Documentation Reviewed: Yes Vital Signs Reviewed: Yes - Physical Exam Appears: Positive for: Uncomfortable (with elevated blood pressure and actively vomiting. Patient has defibrillator) Head Exam: Positive for: ATRAUMATIC, NORMOCEPHALIC Skin: Positive for: Normal Color, Warm, Dry Eye Exam: Positive for: Normal appearance, EOMI, PERRL Cardiovascular/Chest: Positive for: Regular Rate, Rhythm. Negative for: Murmur Respiratory: Positive for: Normal Breath Sounds. Negative for: Wheezing Gastrointestinal/Abdominal: Positive for: Normal Exam, Soft, Other (Insulin pump on abdomen). Negative for: Tenderness Back: Positive for: Normal Inspection. Negative for: L CVA Tenderness, R CVA Tenderness Extremity: Positive for: Normal ROM. Negative for: Tenderness, Pedal Edema Neurologic/Psych: Positive for: Alert, Oriented (x3) - Laboratory Results Result Diagrams: 06/24/18 01:57 06/24/18 01:57 - ECG O2 Sat by Pulse Oximetry: 100 (RA) Pulse Ox Interpretation: Normal - Critical Care Total Time (In Min): 30 Medical Decision Making Medical Decision Makin 43 y/o male with acute nausea and vomiting insetting of renal disease with dialysis, diabetes and accelerated hypertension --Labs --IV Zofran --ABG --Reglan --Benadryl [id number] Labs reviewed and significant for elevated lipase level. Discussed case with Dr. Bridges, patient will be admitted for acute pancreatitis Scribe Attestation: Documented by Amaris Vicente, acting as a scribe for Brenden Fajardo MD. Provider Scribe Attestation: All medical record entries made by the Scribe were at my direction and personally dictated by me. I have reviewed the chart and agree that the record accurately reflects my personal performance of the history, physical exam, medical decision making, and the department course for this patient. I have also personally directed, reviewed, and agree with the discharge instructions and disposition. Disposition - Clinical Impression Clinical Impression: Acute pancreatitis - Patient ED Disposition Is Patient to be Admitted: Yes - Disposition Disposition Time: 03:28
[2018-06-24 04:31] LABS: BASOPHIL 1 % (0-2); LYMPHOCYTE 6 % (20-50); MONOCYTE 9 % (0-10); NEUTROPHIL 84 % (42-75); PLATELET ESTIMATE NORMAL (NORMAL); TOTAL CELLS COUNTED 100
[2018-06-24 04:32] LABS: ANISOCYTOSIS SLIGHT
[2018-06-24] MEDS ORDERED: Glucagon Recombinant 1 mg Inj IM PRN (05:17)
[2018-06-24] MEDS ORDERED: Dextrose 50% SYRINGE Inj (50 ml) IV PRN (05:17)
--- NOTE | 2018-06-24 05:24 | CP.PCM.HP ---
History of Present Illness - History of Present Illness History of Present Illness: 43 yo M with pmhx of DM2 with insulin pump, ESRD on HD M/W/F, HTN, AICD placement presents to the ER with mother with vomiting and abdominal pain Pt states while resting, 6 hours prior to arrival, he had an episode of nausea, followed by vomiting dark red progressing to bright red blood, approximately a cup. Mom witnessed. Associated with epigastric pain: sharp, rated 8/10, localized, intermittent. Reports similar episode 1 month prior. Recent decrease in PO diet. No recent illness or fever. 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 Hector York Chart reviewed from clinic: last visit 12/30/2017; meds reconciled Surg: HD fistula on L upper extremity; AICD on L chest wall; insulin pump Soc: Smokes 4-5 cigarettes per day; Denies: etoh; occasional marijuana Lives with mom Famhx: mom with dm, htn Allergy: pcn Present on Admission - Present on Admission Any Indicators Present on Admission: Yes History of Uncontrolled Diabetes: Yes Urinary Catheter: No Review of Systems - Cardiovascular Cardiovascular: absent: Chest Pain, Chest Pain at Rest - Respiratory Respiratory: absent: Cough, Dyspnea - Gastrointestinal Gastrointestinal: Abdominal Pain, Nausea, Vomiting Past Patient History - Infectious Disease Hx of Infectious Diseases: None - Past Medical History & Family History Past Medical History?: Yes - Past Social History Smoking Status: Light Smoker < 10 Cigarettes Daily Alcohol: None Drugs: Denies Home Situation {Lives}: With Family - CARDIAC Hx Cardiac Disorders: Yes Hx Atrial Fibrillation: No Hx Cardia Arrhythmia: No Hx Congestive Heart Failure: No Hx Hypercholesterolemia: Yes Hx Hypertension: Yes Hx Mitral Valve Prolapse: No Hx Pacemaker: No Hx Peripheral Edema: No - PULMONARY Hx Asthma: No Hx Bronchitis: No Hx Chronic Obstructive Pulmonary Disease (COPD): No Hx Emphysema: No Hx Pneumonia: No Hx Pulmonary Embolism: No Hx Sleep Apnea: No - NEUROLOGICAL Hx Alzheimer's Disease: No Hx Dementia: No Hx Migraine: No Hx Multiple Sclerosis: No Hx Parkinson's Disease: No Hx Seizures: No Hx Transient Ischemic Attacks (TIA): No - HEENT Hx HEENT Problems: No - RENAL Hx Chronic Kidney Disease: Yes Hx Dialysis: Yes Type of Dialysis Access: fistula on L upper extremity Date of Last Dialysis Treatment: 06/23/18 Hx Kidney Stones: No - ENDOCRINE/METABOLIC Hx Diabetes Mellitus Type 2: Yes Hx Hyperthyroidism: No Hx Hypothyroidism: No - HEMATOLOGICAL/ONCOLOGICAL Hx Anemia: Yes Hx Human Immunodeficiency Virus (HIV): No Hx Sickle Cell Disease: No - INTEGUMENTARY Hx Dermatological Problems: No Other/Comment: H/O skin abscesses - MUSCULOSKELETAL/RHEUMATOLOGICAL Hx Arthritis: No Hx Fractures: No Hx Osteoporosis: No Hx Rheumatoid Arthritis: No - GASTROINTESTINAL Hx Crohn's Disease: No Hx Diverticulitis: No Hx Gall Bladder Disease: No Hx Gastritis: No Hx Pancreatitis: No - GENITOURINARY/GYNECOLOGICAL Hx Sexually Transmitted Disorders: No - PSYCHIATRIC Hx Anxiety: Yes Hx Bipolar Disorder: No Hx Depression: Yes Hx Paranoia: No Hx Post Traumatic Stress Disorder: No Hx Schizophrenia: No - SURGICAL HISTORY Hx Appendectomy: No Hx Carotid Endarterectomy: No Hx Cholecystectomy: No Hx Coronary Artery Bypass Graft: No Hx Coronary Stent: No Hx Tonsillectomy: No - ANESTHESIA Hx Anesthesia: Yes Hx Anesthesia Reactions: No Hx Malignant Hyperthermia: No Meds Allergies/Adverse Reactions: Allergies Allergy/AdvReac Type Severity Reaction Status Date / Time Penicillins Allergy RASH Verified 06/09/18 19:34 Physical Exam - Constitutional Appears: No Acute Distress - Eye Exam Eye Exam: EOMI - Respiratory Exam Respiratory Exam: Clear to Auscultation Bilateral, NORMAL BREATHING PATTERN. absent: Wheezes - Cardiovascular Exam Cardiovascular Exam: +S1, +S2 - GI/Abdominal Exam GI & Abdominal Exam: Normal Bowel Sounds, Soft, Tenderness - Neurological Exam Neurological exam: Altered Results - Vital Signs Recent Vital Signs: Last Vital Signs Temp 97.9 F 06/24/18 01:14 Pulse 93 H 06/24/18 03:42 Resp 15 06/24/18 03:42 BP 227/114 H 06/24/18 03:42 Pulse Ox 100 06/24/18 04:09 - Labs Result Diagrams: 06/24/18 01:57 06/24/18 01:57 Labs: Laboratory Results - last 24 hr 06/24/18 06/24/18 06/24/18 01:57 01:57 01:57 WBC 8.8 RBC 3.53 L Hgb 11.4 L Hct 34.6 L MCV 98.0 H MCH 32.4 H MCHC 33.0 RDW 15.7 H Plt Count 266 MPV 7.8 Neut % (Auto) 83.7 H Lymph % (Auto) 7.5 L [place] % (Auto) 7.1 Eos % (Auto) 0.3 Baso % (Auto) 1.4 Neut # (Auto) 7.3 H Lymph # (Auto) 0.7 L [place] # (Auto) 0.6 Eos # (Auto) 0.0 Baso # (Auto) 0.1 Neutrophils % (Manual) 84 H Lymphocytes % (Manual) 6 L Monocytes % (Manual) 9 Basophils % (Manual) 1 Platelet Estimate Normal Anisocytosis (manual) Slight PT 11.5 INR 1.0 APTT 34.4 pCO2 pO2 HCO3 ABG pH ABG Total CO2 ABG O2 Saturation ABG Base Excess Abilio Test ABG Potassium A-a O2 Difference Glucose Lactate FiO2 Sodium 138 Potassium 4.9 Chloride 91 L Carbon Dioxide 31 H Anion Gap 21 H BUN 44 H Creatinine 6.9 H Est GFR ( Amer) 11 Est GFR (Non-Af Amer) 9 POC Glucose (mg/dL) Random Glucose 164 H Calcium 9.9 Total Bilirubin 1.1 AST 35 ALT 14 L D Alkaline Phosphatase 75 Total Protein 8.3 H Albumin 4.7 Globulin 3.6 Albumin/Globulin Ratio 1.3 Lipase 1148 H Arterial Blood Potassium 06/24/18 06/24/18 02:13 02:18 WBC RBC Hgb Hct MCV MCH MCHC RDW Plt Count MPV Neut % (Auto) Lymph % (Auto) [place] % (Auto) Eos % (Auto) Baso % (Auto) Neut # (Auto) Lymph # (Auto) [place] # (Auto) Eos # (Auto) Baso # (Auto) Neutrophils % (Manual) Lymphocytes % (Manual) Monocytes % (Manual) Basophils % (Manual) Platelet Estimate Anisocytosis (manual) PT INR APTT pCO2 43 pO2 54 L HCO3 32.6 H ABG pH 7.51 H ABG Total CO2 35.6 H ABG O2 Saturation 93.3 L ABG Base Excess 10.1 H Abilio Test Yes ABG Potassium 4.0 A-a O2 Difference 42.0 Glucose 160 H Lactate 1.7 FiO2 21.0 Sodium 135.0 Potassium Chloride 95.0 L Carbon Dioxide Anion Gap BUN Creatinine Est GFR ( Amer) Est GFR (Non-Af Amer) POC Glucose (mg/dL) 163 H Random Glucose Calcium Total Bilirubin AST ALT Alkaline Phosphatase Total Protein Albumin Globulin Albumin/Globulin Ratio Lipase Arterial Blood Potassium 4.0 Assessment & Plan - Assessment and Plan (Free Text) Assessment: 43 yo M with pmhx of DM2 with insulin pump, ESRD on HD M/W/F, HTN, AICD placement, admitted for acute pancreatitis, ESRD, and accellerated htn. Plan: Acute Pancreatitis Admit to tele ekg monitor tech Lipase 1148 s/p diphenhydramine, metoclopramide, ondansetron, promethazine pantoprazole NPO except meds IV: LR gentle hydration 75 mls/hr; total of 4 hrs. c/w pantoprazole 40 mg po qd f/u am labs, lipase ESRD on HD: M, W, F Nephrology: per mom, is Dr. Salomon, recs appreciated gentle hydration f/u am labs Accelerated HTN s/p labetalol 20 mg IVP continue with home meds Clonidine 0.1 mg TID PRN for uncontrolled HTN Monitor bp and sxs DM 2 Insulin pump accuchecks q6hr iss DVT/GI prophylaxis SCDs Pantoprazole Case and Plan d/w Dr. Cyrus Lacy MD PGY-2
[2018-06-24] MEDS ORDERED: Lactated Ringer's 500 ML IV SCH (05:30)
[2018-06-24] MEDS ORDERED: Insulin Regular 100 units/ml SC SCH (07:30)
[2018-06-24] MEDS ORDERED: Iohexol 240 (50 ml) PO ONE (07:31)
[2018-06-24] MEDS ORDERED: Pantoprazole 40 mg EC Tab PO SCH (09:00)
[2018-06-24] MEDS ORDERED: Iohexol 240 (50 ml) ONE (09:09)
[2018-06-24 09:32] LABS: BASO % 0.3 % (0.0-2.0); HEMOGLOBIN 10.5 g/dL (12.0-18.0); LYMPH # 0.7 K/uL (1.0-4.3); LYMPH % 6.6 % (20.0-40.0); MEAN CELL VOLUME 99.8 fl (80.0-94.0); MEAN CORPUSCULAR HEMOGLOBIN 32.5 pg (27.0-31.0); MEAN CORPUSCULAR HGB CONC 32.6 g/dL (33.0-37.0); MEAN PLATELET VOLUME 7.8 fl (7.2-11.7); MONO # 0.6 K/uL (0.0-0.8); MONO % 5.2 % (0.0-10.0); NEUT # 9.9 K/uL (1.8-7.0); NEUT % 87.9 % (50.0-75.0); RBC 3.24 Mil/uL (4.40-5.90); RED CELL DISTRIBUTION WIDTH 16.1 % (11.5-14.5); WHITE BLOOD COUNT 11.2 K/uL (4.8-10.8)
[2018-06-24 09:42] LABS: HDL CHOLESTEROL 47 MG/DL (30-70); LIPASE 324 U/L (23-300)
[2018-06-24 09:53] LABS: LDL CHOLESTEROL 48 mg/dL (0-129)
[2018-06-24] MEDS ORDERED: Iodixanol 320 MG/ML 100 ML BOTTLE IV ONE (11:46)
[2018-06-24] MEDS ORDERED: Sodium Chloride 0.9% 100 ML ONE (11:46)
--- NOTE | 2018-06-24 12:35 | CT ---
Date of service: 06/24/2018 PROCEDURE: CT Abdomen and Pelvis with contrast HISTORY: nausea, vomiting, abd pain, pancreatitis, COMPARISON: None. TECHNIQUE: Contrast dose: Radiation dose: Total exam DLP = 469.13 mGy-cm. This CT exam was performed using one or more of the following dose reduction techniques: Automated exposure control, adjustment of the mA and/or kV according to patient size, and/or use of iterative reconstruction technique. FINDINGS: LOWER THORAX: Minimal subpleural fibrotic change in os atelectasis. LIVER: Unremarkable. No gross lesion or ductal dilatation. GALLBLADDER AND BILE DUCTS: Unremarkable. PANCREAS: Unremarkable. No gross lesion or ductal dilatation. SPLEEN: Unremarkable. ADRENALS: Unremarkable. No mass. KIDNEYS AND URETERS: Mild to moderate bilateral renal atrophy. VASCULATURE: Extensive small vessel vascular calcifications. No aortic atherosclerotic calcification or mural plaque present. BOWEL: Abundant stool within the sigmoid colon. No obstruction. APPENDIX: Normal appendix. PERITONEUM: Unremarkable. No free fluid. No free air. LYMPH NODES: Unremarkable. No enlarged lymph nodes. BLADDER: Unremarkable. REPRODUCTIVE: Unremarkable. BONES: Old anterior compression fracture at L4. OTHER FINDINGS: None. IMPRESSION: [id number] bilateral renal atrophy with diffuse small vessel vascular calcifications. A abundant stool in the sigmoid colon. No evidence of pancreatitis.
[2018-06-24] MEDS: Pantoprazole 40 mg EC Tab PO SCH ×2 (12:45→17:11)
[2018-06-24 21:06] VITALS: BP 125/78; PULSE 73; RESP 18; TEMP 98.3; O2SAT 99
[2018-06-24] MEDS: Docusate-Senna 50 mg-8.6 mg Tab PO SCH ×2 (21:20→22:00)
--- NOTE | 2018-06-24 22:57 | CARD ---
APPROVED REPORT Date of service: 06/24/2018 EKG Measurement Heart [id number] <Conclusion> Normal sinus rhythm Minimal voltage criteria for LVH, may be normal variant Otherwise normal ECG
[2018-06-25] MEDS ORDERED: PRAVASTATIN SODIUM 80 MG PO SCH (09:00)
== END 2018-06-24 21:40 | disposition left against medical advice (07) | DRG 438 ==
LOC: H.ER 01:12 → H.ERHOLD 03:28 → H.ICU/CCU 10:04
PROVIDERS: ADMIT Internal Medicine; ATTEND Internal Medicine
DX: K85.90 Acute pancreatitis without necrosis or infection, unspecified (principal); N18.6 End stage renal disease; I12.0 Hypertensive chronic kidney disease with stage 5 chronic kidney disease or end stage renal disease; E11.22 Type 2 diabetes mellitus with diabetic chronic kidney disease; R74.8 Abnormal levels of other serum enzymes; E78.00 Pure hypercholesterolemia, unspecified; D64.9 Anemia, unspecified; F41.9 Anxiety disorder, unspecified; F12.10 Cannabis abuse, uncomplicated; F17.210 Nicotine dependence, cigarettes, uncomplicated; Z99.2 Dependence on renal dialysis; Z96.41 Presence of insulin pump (external) (internal); Z79.4 Long term (current) use of insulin; Z95.810 Presence of automatic (implantable) cardiac defibrillator; Z79.02 Long term (current) use of antithrombotics/antiplatelets; Z88.0 Allergy status to penicillin

== ENCOUNTER 2018-09-05 17:55 | Emergency (ER) | payer BC, MEDICARE ==
[2018-09-05] MEDS ORDERED: Sodium Chloride 0.9% 1,000 ML IV STA (18:17)
[2018-09-05] MEDS ORDERED: Labetalol 5mg/ml (4ml) IVP STA ×2 (18:18→23:55)
[2018-09-05] MEDS ORDERED: Labetalol 5mg/ml (4ml) ONE (18:31)
--- NOTE | 2018-09-05 18:34 | ED PDOC ---
HPI: Abdomen Time Seen by Provider: 09/05/18 18:12 Chief Complaint (Nursing): GI Problem Chief Complaint (Provider): GI Problem History Per: Patient History/Exam Limitations: no limitations Current Symptoms Are (Timing): Still Present Additional Complaint(s): Patient is a 43 y/o male with a PMHx of anemia, anxiety, HTN, hyercholesterolemia, depression, diabetes, end stage renal kidney, and chronic kidney disease who presents to the ED for evaluation of epigastric pain associated with nausea, vomiting, and hiccups onset today. Patient was last dialyzed for chronic renal disease yesterday. Patient was recently admitted to ED in June of 2018. Patient denies blood in vomit or stool. PCP: Dr. Hector York Past Medical History Reviewed: Historical Data, Nursing Documentation, Vital Signs Vital Signs: Last Vital Signs Temp 98.0 F 09/05/18 17:57 Pulse 98 H 09/05/18 17:57 Resp 16 09/05/18 17:57 BP 235/116 H 09/05/18 17:57 Pulse Ox 100 09/05/18 17:57 - Medical History PMH: Anemia, Anxiety, Depression, Diabetes (Types I), HTN, Hypercholesterolemia, End Stage Renal Disease (on dialysis), Chronic Kidney Disease Denies: Alzheimer's Disease, Arthritis, Asthma, Atrial Fibrillation, Bipolar Disorder, Bronchitis, CAD, Cardia Arrhythmia, CHF, COPD, Crohn's Disease, CVA, Dementia, Diverticulitis, Emphysema, Fractures, Gastritis, Gall Bladder Disease, HIV, Hyperthyroidism, Hypothyroidism, Kidney Stones, Migraine, Mitral Valve Prolapse, Multiple Sclerosis, Osteoporosis, Pancreatitis, Paranoia, Parkinson's Disease, Peripheral Edema, Pneumonia, Post Traumatic Stress Disorder, Pulmonary Embolism, Rheumatoid Arthritis, Schizophrenia, Seizures, Sickle Cell Disease, Sexually Transmitted Disease, Sleep Apnea, TIA - Surgical History Surgical History: No Surg Hx Denies: Appendectomy, CABG, Carotid Endarterectomy, Cholecystectomy, Coronary Stent, Pacemaker, Tonsillectomy - Family History Family History: States: Unknown Family Hx - Home Medications Home Medications: Ambulatory Orders Medication Instructions Recorded Clonazepam [Klonopin] 0.5 mg PO DAILY 11/16/16 Fluoxetine HCl [Prozac] 40 mg PO BID 11/16/16 Losartan Potassium 50 mg PO DAILY 11/16/16 amLODIPine [Norvasc] 10 mg PO DAILY 11/16/16 cloNIDine [Catapres] 0.2 mg PO TID 11/16/16 Omeprazole 40 mg PO DAILY 03/06/17 Aspirin [Aspirin Chewable] 81 mg PO DAILY 03/07/17 Clopidogrel [Plavix] 75 mg PO DAILY tab 03/07/17 Sevelamer Carbonate [Renvela] 2,400 mg PO TIDCC tab 03/07/17 Ondansetron ODT [Zofran ODT] 1 odt PO Q6 PRN #20 odt 06/09/18 Duloxetine HCl [Duloxetine] 30 mg PO HS 06/24/18 Ferric Citrate [Auryxia] 3 tab PO TID 06/24/18 Metoprolol Tartrate [Lopressor] 50 mg PO BID 06/24/18 Pravastatin Sodium [Pravachol] 80 mg PO DAILY 06/24/18 Pregabalin [Lyrica] 25 mg PO TID 06/24/18 hydrALAZINE [hydralazine 25 mg PO TID 06/24/18 Hydrochloride] - Allergies Allergies/Adverse Reactions: Allergies Allergy/AdvReac Type Severity Reaction Status Date / Time Penicillins Allergy RASH Verified 09/05/18 17:57 Review of Systems ROS Statement: Except As Marked, All Systems Reviewed And Found Negative Gastrointestinal: Positive for: Nausea, Vomiting (non-bloody), Abdominal Pain (epigastric), Other (Hiccups). Negative for: Melena, Hematochezia, Hematemesis Physical Exam - Reviewed Nursing Documentation Reviewed: Yes Vital Signs Reviewed: Yes - Physical Exam Appears: Positive for: No Acute Distress Head Exam: Positive for: ATRAUMATIC, NORMAL INSPECTION, NORMOCEPHALIC Cardiovascular/Chest: Positive for: Regular Rate, Rhythm. Negative for: Murmur Respiratory: Positive for: Normal Breath Sounds. Negative for: Respiratory Distress Gastrointestinal/Abdominal: Positive for: Tenderness (epigastric). Negative for: Guarding, Rebound, Other (swelling) Neurological/Psych: Positive for: Alert, Oriented - ECG O2 Sat by Pulse Oximetry: 100 (RA) Pulse Ox Interpretation: Normal Medical Decision Making Medical Decision Making: Time: 1815 Plan: - EKG - CMP - Will obtain lipase to r/o pancreatitis. - CBC - Ativan 1 mg IVP - IV Fluids - Trandate 10 mg IVP - Pepcid and Zofran for vomiting and abdominal pain. - UA Scribe Attestation: Documented by Luis Ospina, acting as a scribe for Davi Cartwright MD. Provider Scribe Attestation: All medical record entries made by the Scribe were at my direction and personally dictated by me. I have reviewed the chart and agree that the record accurately reflects my personal performance of the history, physical exam, medical decision making, and the department course for this patient. I have also personally directed, reviewed, and agree with the discharge instructions and disposition. Disposition - Clinical Impression Clinical Impression: Abdominal pain, CKD (chronic kidney disease) requiring chronic dialysis - Patient ED Disposition Is Patient to be Admitted: Transfer of Care - Disposition Disposition Time: 19:00 Condition: FAIR Forms: [employer] ([place]ai[place]ese) Patient Signed Over To: Rafita Bullock (Pending labs abd reeval)
[2018-09-05 18:51] LABS: BASO # 0.1 K/uL (0.0-0.2); BASO % 0.5 % (0.0-2.0); HEMOGLOBIN 12.3 g/dL (12.0-18.0); LYMPH # 0.3 K/uL (1.0-4.3); LYMPH % 2.3 % (20.0-40.0); MEAN PLATELET VOLUME 8.1 fl (7.2-11.7); MONO # 0.3 K/uL (0.0-0.8); MONO % 2.4 % (0.0-10.0); NEUT % 94.8 % (50.0-75.0); PLATELET COUNT 258 K/uL (130-400); RBC 3.86 Mil/uL (4.40-5.90); RED CELL DISTRIBUTION WIDTH 13.7 % (11.5-14.5); WHITE BLOOD COUNT 12.7 K/uL (4.8-10.8)
[2018-09-05 19:43] LABS: ANISOCYTOSIS SLIGHT; LYMPHOCYTE 5 % (20-50); MONOCYTE 3 % (0-10); NEUTROPHIL 92 % (42-75); PLATELET ESTIMATE NORMAL (NORMAL); TOTAL CELLS COUNTED 100
[2018-09-05 19:50] LABS: ALB/GLOB RATIO 1.5 (1.0-2.1); CALCIUM 10.4 mg/dL (8.4-10.2)
[2018-09-05] MEDS ORDERED: Insulin Regular 100 units/ml IV STA (21:49)
[2018-09-05] MEDS ORDERED: Dextrose 50% SYRINGE Inj (50 ml) IVP ONE (21:49)
--- NOTE | 2018-09-05 21:49 | ED PDOC ---
- Laboratory Results Result Diagrams: 09/05/18 18:43 09/05/18 19:00 Lab Results: Total Bilirubin 0.6 mg/dl (0.2-1.3) 09/05/18 19:00 AST 42 U/L (17-59) 09/05/18 19:00 ALT 21 U/L (21-72) D 09/05/18 19:00 Alkaline Phosphatase 63 U/L (38-126) 09/05/18 19:00 Total Protein 8.3 G/DL (6.3-8.2) H 09/05/18 19:00 Albumin 5.0 g/dL (3.5-5.0) 09/05/18 19:00 Globulin 3.3 gm/dL (2.2-3.9) 09/05/18 19:00 Albumin/Globulin Ratio 1.5 (1.0-2.1) 09/05/18 19:00 Lipase 683 U/L (23-300) H 09/05/18 19:00 - ECG O2 Sat by Pulse Oximetry: 98 (RA) Pulse Ox Interpretation: Normal Medical Decision Making Medical Decision Making: Time: 1899 Patient endorsed to provider from Davi Cartwright MD. Patient pending CT, reevaluation, and final disposition. Time: 2136 FINDINGS: LUNG BASES: The lung bases appear clear. No pleural effusions are seen. LIVER: Unremarkable. GALLBLADDER AND BILE DUCTS: A tiny solitary cholelith is seen in the gallbladder lumen. No biliary ductal dilatation is evident. PANCREAS: Unremarkable. SPLEEN: Unremarkable. ADRENAL GLANDS: Unremarkable. KIDNEYS, URETERS, AND BLADDER: The kidneys appear within normal limits. There is no hydronephrosis or hydroureter. No urinary calculi are seen. The urinary bladder is normal in size and configuration. The mucosal clifton appear thickened which could indicate chronic cystitis. STOMACH AND BOWEL: Fluid is seen within the stomach and duodenum with associated mild mucosal wall thickening thought compatible with gastritis and duodenitis. No evidence of bowel obstruction. No evidence suggesting enteritis or colitis. APPENDIX: No evidence of acute appendicitis on CT examination. PERITONEUM: No free fluid. No free air. LYMPH NODES: Several bilateral mildly enlarged inguinal lymph nodes are noted compatible with lymphadenopathy. These appear slightly larger since the prior examination. REPRODUCTIVE: Unremarkable as visualized. VASCULATURE: No evidence of abdominal aortic aneurysm. Minor atherosclerotic vascular plaquing is noted. BONES: No aggressive appearing osseous lesion. No acute osseous pathology evident. Old compression fracture involving the mid-anterior superior endplate of L4 is again noted. This appears unchanged. IMPRESSION: 1. Findings compatible with gastritis and duodenitis. 2. Bilateral inguinal lymphadenopathy. The enlarged nodes appear to have increased in size since the prior examination. 3. Thickening of the clifton of the urinary bladder compatible with chronic cystitis. Electronically signed on Sep 05, 2018 9:37:48 PM EDT by: Saulo Montez M.D., MBA Certified By [facility] & [facility] Fellowship Trained MRI and CT Specialist Scribe Attestation: Documented by Luis Ospina, acting as a scribe for Rafita Bullock MD. Provider Scribe Attestation: All medical record entries made by the Scribe were at my direction and personally dictated by me. I have reviewed the chart and agree that the record accurately reflects my personal performance of the history, physical exam, medical decision making, and the department course for this patient. I have also personally directed, reviewed, and agree with the discharge instructions and disposition. Time: 0133 -- Patient had mild hyperkalemia with EKG changed. Medical treatment given to control hyperkalemia. Medications given to control hiccuping and HTN. Patient strongly encouraged to stay in the hospital for further management. However, patient stated he wanted to go home. Patient made aware of risks of leaving the hospital such as worsening HTN, stroke, permanent paralysis and . Patient signed out Against Medical Advice at this time. Scribe Attestation: Documented by Cassia Mendiola, acting as a scribe for Rafita Bullock MD. Provider Scribe Attestation: All medical record entries made by the Scribe were at my direction and personally dictated by me. I have reviewed the chart and agree that the record accurately reflects my personal performance of the history, physical exam, medical decision making, and the department course for this patient. I have also personally directed, reviewed, and agree with the discharge instructions and disposition. Disposition Counseled Patient/Family Regarding: Studies Performed, Diagnosis - Clinical Impression Clinical Impression: Abdominal pain, CKD (chronic kidney disease) requiring chronic dialysis - POA Present On Arrival: None - Disposition Disposition: AGAINST MEDICAL ADVICE Disposition Time: 01:33 Condition: FAIR Instructions: Hiccups, High Blood Pressure in Adults, Kidney Disease Diet (For People Not on Dialysis), Gastritis (DC), High Blood Pressure Emergencies, Leaving Against Medical Advice, Ulcer and Gastritis Diet Forms: [employer] ([place] Islander) Against Medical Advice - AMA Patient Left Against Medical Advice: The patient declines admission to the hospital and wishes to leave the Emergency Department. This action is against my medical advice. This decision was made with informed refusal. The patient was told that admission to the hospital is necessary. Explanation of the reasons why were discussed. The risks of leaving were explained to the patient and include, but are not limited to, worsening of known or currently unknown conditions, permanent disability and from undiagnosed or untreated conditions. The patient has the capacity to make this informed decision and understands my explanation of the current medical problem and risks of leaving. The patient voluntarily accepts these risks and signed an AMA form documenting our conversation. The patient was given the opportunity to ask questions and reconsider. The patient was encouraged to return to the Emergency Department at any time for further care.
[2018-09-05] MEDS ORDERED: Metoprolol 1 mg/ml Inj ONE (23:59)
[2018-09-06] MEDS ORDERED: Labetalol 5mg/ml (4ml) ONE (00:07)
[2018-09-06] MEDS ORDERED: DiphenhydrAMINE 50 mg/ml Inj IVP STA ×2 (01:14→01:44)
[2018-09-06 03:35] VITALS: O2SAT 98
[2018-09-06 07:26] VITALS: BP 179/93; PULSE 93; RESP 18; TEMP 98.2
--- NOTE | 2018-09-06 08:59 | CARD ---
APPROVED REPORT Date of service: 09/05/2018 EKG Measurement Heart [id number] <Conclusion> Normal sinus rhythm Voltage criteria for left ventricular hypertrophy Prolonged QT Abnormal ECG
--- NOTE | 2018-09-06 15:59 | CT ---
Date of service: 09/05/2018 PROCEDURE: CT Abdomen and Pelvis without intravenous contrast HISTORY: esrd, nausea, vomiting, pancreatitis COMPARISON: 06/24/2018 TECHNIQUE: Without contrast.. Contrast dose: 0 Radiation dose: Total exam DLP = 395.73 mGy-cm. This CT exam was performed using one or more of the following dose reduction techniques: Automated exposure control, adjustment of the mA and/or kV according to patient size, and/or use of iterative reconstruction technique. FINDINGS: LOWER THORAX: Minimal bilateral lower lobe subsegmental atelectasis. LIVER: Mild hepatomegaly. The liver measures 20 cm craniocaudal. Smooth contour. No mass. No biliary ductal dilatation. GALLBLADDER AND BILE DUCTS: Cholelithiasis. No mural thickening or pericholecystic fluid. PANCREAS: Unremarkable. No gross lesion or ductal dilatation. SPLEEN: Unremarkable. ADRENALS: Mild nonspecific bilateral adrenal hypertrophy. No mass. KIDNEYS AND URETERS: Mild hepatomegaly. 10 mm rounded low-attenuation lesion upper pole left kidney. Multiple additional much smaller nonspecific low-attenuation lesions. Unchanged from prior examination. Likely cysts. VASCULATURE: Unremarkable. No aortic aneurysm. There is atherosclerotic calcification of the abdominal aorta. BOWEL: Unremarkable. No obstruction. No gross mural thickening. APPENDIX: Not identified. No secondary findings to suggest acute appendicitis. PERITONEUM: Unremarkable. No free fluid. No free air. LYMPH NODES: Unremarkable. No enlarged lymph nodes. BLADDER: Bladder wall diffusely thickened. Nonspecific finding. Correlate for possible cystitis or bladder outlet obstruction. REPRODUCTIVE: Unremarkable prostate BONES: Large Schmorl's node in the anterior superior L4 vertebral endplate. No acute fracture. OTHER FINDINGS: None. IMPRESSION: Diffusely thickened bladder wall. Correlate with urinalysis for possible cystitis. Cholelithiasis without evidence of cholecystitis. Small bilateral low attenuation renal lesions, likely small cysts. The preliminary findings for this examination were reported by [facility] at 9:37 p.m. on 09/05/2018. There is concurrence of this report with the preliminary findings.
== END 2018-09-06 02:20 | disposition left against medical advice (07) ==
LOC: H.ER 17:55
DX: R10.13 Epigastric pain (principal); I12.0 Hypertensive chronic kidney disease with stage 5 chronic kidney disease or end stage renal disease; Z99.2 Dependence on renal dialysis; N18.6 End stage renal disease
CPT/HCPCS: 74176; 80053; 82948; 83690; 85025; 93005; 96365; 96375; 96376; 99284; J0610; J1200; J2060; J2405; J2765; J7030

== ENCOUNTER 2018-09-15 11:39 | Inpatient (IN) | payer MEDICARE, MEDICAID ==
[2018-09-15] MEDS ORDERED: Sodium Chloride 0.9% 1,000 ML IV STA (12:02)
--- NOTE | 2018-09-15 12:38 | ED PDOC ---
HPI: Hypertension/Hypotension Time Seen by Provider: 09/15/18 11:58 Chief Complaint (Nursing): Abdominal Pain Chief Complaint (Provider): High blood pressure and vomiting History Per: Patient History/Exam Limitations: no limitations Onset/Duration Of Symptoms: Days (x2) Current Symptoms Are (Timing): Still Present Additional Complaint(s): 43 year old male presents to the ED with high blood pressure and vomiting. Vomiting began last night and progressed to today. Patient reports having diffuse abdominal pain that started after the 3rd episode of vomiting. Patient states she hasn't missed dialysis recently but is scheduled for today. She is unsure if she had a fever but states she has had chills. Patient reports feeling anxious and is requesting medications for anxiety. PMD: Hector Ewing Past Medical History Reviewed: Historical Data, Nursing Documentation, Vital Signs Vital Signs: Last Vital Signs Temp 97.3 F L 09/15/18 11:46 Pulse 75 09/15/18 12:34 Resp 18 09/15/18 11:46 BP 284/100 H 09/15/18 12:34 Pulse Ox 100 09/15/18 11:46 - Medical History PMH: Anemia, Anxiety, Depression, Diabetes (Types I), HTN, Hypercholesterolemia, End Stage Renal Disease (on dialysis), Chronic Kidney Disease Denies: Alzheimer's Disease, Arthritis, Asthma, Atrial Fibrillation, Bipolar Disorder, Bronchitis, CAD, Cardia Arrhythmia, CHF, COPD, Crohn's Disease, CVA, Dementia, Diverticulitis, Emphysema, Fractures, Gastritis, Gall Bladder Disease, HIV, Hyperthyroidism, Hypothyroidism, Kidney Stones, Migraine, Mitral Valve Prolapse, Multiple Sclerosis, Osteoporosis, Pancreatitis, Paranoia, Parkinson's Disease, Peripheral Edema, Pneumonia, Post Traumatic Stress Disorder, Pulmonary Embolism, Rheumatoid Arthritis, Schizophrenia, Seizures, Sickle Cell Disease, Sexually Transmitted Disease, Sleep Apnea, TIA - Surgical History Surgical History: No Surg Hx Denies: Appendectomy, CABG, Carotid Endarterectomy, Cholecystectomy, Coronary Stent, Pacemaker, Tonsillectomy - Family History Family History: States: Unknown Family Hx - Home Medications Home Medications: Ambulatory Orders Medication Instructions Recorded Clonazepam [Klonopin] 0.25 mg PO DAILY 11/16/16 Fluoxetine HCl [Prozac] 40 mg PO Q12 11/16/16 amLODIPine [Norvasc] 10 mg PO DAILY 11/16/16 Duloxetine HCl [Duloxetine] 30 mg PO HS 06/24/18 Metoprolol Tartrate [Lopressor] 50 mg PO BID 06/24/18 Pravastatin Sodium [Pravachol] 80 mg PO DAILY 06/24/18 Pregabalin [Lyrica] 25 mg PO TID 06/24/18 hydrALAZINE [hydralazine 50 mg PO QAM 06/24/18 Hydrochloride] Sevelamer Carbonate [Renvela] tab PO TID 09/15/18 cloNIDine [Catapres] 0.2 mg PO Q8 09/15/18 clonazePAM [Klonopin] 0.75 mg PO MWF 09/15/18 hydrALAZINE [Apresoline] 25 mg PO QPM 09/15/18 hydrALAZINE [Apresoline] 50 mg PO HS 09/15/18 - Allergies Allergies/Adverse Reactions: Allergies Allergy/AdvReac Type Severity Reaction Status Date / Time Penicillins Allergy RASH Verified 09/05/18 17:57 Review of Systems ROS Statement: Except As Marked, All Systems Reviewed And Found Negative Constitutional: Positive for: Chills Gastrointestinal: Positive for: Vomiting, Abdominal Pain (diffuse) Psych: Positive for: Anxiety Physical Exam - Reviewed Nursing Documentation Reviewed: Yes Vital Signs Reviewed: Yes - Physical Exam Appears: Positive for: No Acute Distress (Vomiting) Head Exam: Positive for: ATRAUMATIC, NORMOCEPHALIC Skin: Positive for: Diaphoresis Eye Exam: Positive for: Normal appearance Neck: Positive for: Normal, Painless ROM Cardiovascular/Chest: Positive for: Regular Rate, Rhythm Respiratory: Positive for: Normal Breath Sounds. Negative for: Wheezing, Respiratory Distress Gastrointestinal/Abdominal: Positive for: Tenderness (diffuse abdominal t enderness), Guarding Extremity: Positive for: Normal ROM Neurological/Psych: Positive for: Awake, Alert, Normal Tone - Laboratory Results Result Diagrams: 09/15/18 12:18 09/15/18 12:18 - ECG O2 Sat by Pulse Oximetry: 100 (RA) Pulse Ox Interpretation: Normal Medical Decision Making Medical Decision Making: Initial Impression: workup for hypertensive emergency Initial Plan: --Hydralazine given for blood pressure --Cardiac workup --Labs --Zofran for vomiting Patient most likely to be admitted. Will contact nephrology for scheduled dialysis. 13:[address] Ruiz's answering service. Waiting call back. 14:[address] Salomon who will come to see patient for urgent dialysis. Scribe Attestation: Documented by George Boss acting as a scribe for Carly Walters MD. Provider Scribe Attestation: All medical record entries made by the Scribe were at my direction and person ally dictated by me. I have reviewed the chart and agree that the record accurately reflects my personal performance of the history, physical exam, medical decision making, and the department course for this patient. I have also personally directed, reviewed, and agree with the discharge instructions and disposition. Disposition - Disposition
[2018-09-15 12:40] LABS: VENOUS BLOOD GAS BASE EXCESS 2.7 mmol/L (0.0-2.0); VENOUS BLOOD GAS PCO2 36 mmHg (40-60); VENOUS BLOOD GAS PO2 42 mm/Hg (30-55); VENOUS BLOOD PH 7.47 (7.32-7.43)
[2018-09-15 12:41] LABS: INR 0.8
[2018-09-15 12:44] LABS: PARTIAL THROMBOPLASTIN TIME 34.2 Seconds (25.6-37.1)
[2018-09-15 12:47] LABS: PROTHROMBIN TIME 9.6 Seconds (9.8-13.1)
[2018-09-15] MEDS ORDERED: Insulin Regular 100 units/ml SC STA (12:57)
[2018-09-15 12:58] LABS: ALB/GLOB RATIO 1.5 (1.0-2.1); ALBUMIN 4.8 g/dL (3.5-5.0); CALCIUM 10.9 mg/dL (8.4-10.2)
[2018-09-15 13:01] LABS: BASO # 0.1 K/uL (0.0-0.2); BASO % 0.9 % (0.0-2.0); EOS % 0.4 % (0.0-4.0); HEMOGLOBIN 12.5 g/dL (12.0-18.0); LYMPH # 0.6 K/uL (1.0-4.3); LYMPH % 5.2 % (20.0-40.0); MEAN CELL VOLUME 96.9 fl (80.0-94.0); MEAN CORPUSCULAR HEMOGLOBIN 32.8 pg (27.0-31.0); MEAN CORPUSCULAR HGB CONC 33.9 g/dL (33.0-37.0); MEAN PLATELET VOLUME 8.4 fl (7.2-11.7); MONO # 0.3 K/uL (0.0-0.8); MONO % 3.1 % (0.0-10.0); NEUT # 10.1 K/uL (1.8-7.0); NEUT % 90.4 % (50.0-75.0); NRBC % 0.2 % (0.0-0.0); PLATELET COUNT 284 K/uL (130-400); RED CELL DISTRIBUTION WIDTH 13.3 % (11.5-14.5); WHITE BLOOD COUNT 11.1 K/uL (4.8-10.8)
[2018-09-15 13:06] LABS: TROPONIN I 0.021 ng/mL (0.00-0.120)
[2018-09-15] MEDS ORDERED: Insulin Regular 100 units/ml ONE (13:15)
[2018-09-15] MEDS ORDERED: Iodixanol 320 MG/ML 100 ML BOTTLE IV ONE (13:55)
[2018-09-15] MEDS ORDERED: Sodium Chloride 0.9% 100 ML ONE (13:55)
[2018-09-15] MEDS ORDERED: Iodixanol 320 mg/ml 50 ml Sol IV ONE (13:55)
[2018-09-15 14:07] LABS: BASOPHIL 1 % (0-2); LYMPHOCYTE 7 % (20-50); MONOCYTE 3 % (0-10); NEUTROPHIL 89 % (42-75); TOTAL CELLS COUNTED 100
[2018-09-15 14:08] LABS: PLATELET ESTIMATE NORMAL (NORMAL)
--- NOTE | 2018-09-15 15:06 | CT ---
Date of service: 09/15/2018 PROCEDURE: CT Abdomen and Pelvis with contrast HISTORY: rule out dissection, abd pain and HTN COMPARISON: abdomen pelvis CT 09/05/2018. TECHNIQUE: Following the intravenous administration of iodinated contrast material, a CT examination of the abdomen and pelvis was performed from the domes of the diaphragms to the symphysis pubis with reformatted datasets provided in axial, sagittal and coronal planes. Contrast enhancement was captured in the arterial phase alone. Oral contrast was not administered as per referring physician request. Dialysis has been requested for the patient following CT examination today. Contrast dose: Visipaque 320, 140 cc Radiation dose: Total exam DLP = 948.57 mGy-cm. This CT exam was performed using one or more of the following dose reduction techniques: Automated exposure control, adjustment of the mA and/or kV according to patient size, and/or use of iterative reconstruction technique. FINDINGS: LOWER THORAX: Bilateral basilar dependent atelectasis identified with borderline cardiomegaly. No pleural or pericardial effusion evident. There is prominent thickening of the distal esophagus suspicious for potential interval esophagitis. GI consultation recommended. LIVER: Unremarkable as imaged. GALLBLADDER AND BILE DUCTS: Unremarkable. PANCREAS: Unremarkable. No gross lesion or ductal dilatation. SPLEEN: Unremarkable. ADRENALS: Unremarkable. No mass. KIDNEYS AND URETERS: No obstructive uropathy or radiodense urolithiasis bilaterally. A few sub cm lucency is seen at the cortex of the bilateral kidneys too small to characterize. VASCULATURE: No evidence of abdominal aortic aneurysm or dissection. The visualized inferior thoracic aortic segment appears normal in caliber and enhancement as well. Note is made of minimal mural atherosclerotic calcified plaque at the abdominal aorta. Celiac and superior mesenteric arteries appear widely patent as well as the celiac axis. Bilateral renal arteries are patent as well as the inferior mesenteric artery. Bilateral common iliac arteries are widely patent as well as external iliac and common femoral arteries. BOWEL: No bowel obstruction is evident however there is questionable thickening of small and large bowel suspicious for enterocolitis with only possible sparing of the distal rectosigmoid. Postoperative changes are question related to a sigmoid segment. Relatively prominent retained fecal material seen at the rectosigmoid segment which may indicate an element of limited constipation. APPENDIX: Identified. No definite CT evidence of appendicitis at this time. PERITONEUM: Increased density of the perineal as well as extra abdominal fat may indicate anasarca. LYMPH NODES: Unremarkable. No enlarged lymph nodes. BLADDER: Gross mural thickening is reiterated suspicious for chronic cystitis of infectious or inflammatory etiology though other causes including neoplasm not excluded. REPRODUCTIVE: Unremarkable. BONES: Chronic anterior wedge compression fracture L4 stable. OTHER FINDINGS: None. IMPRESSION: 1. No CT evidence of abdominal aortic or inferior thoracic aortic dissection or aneurysm. Widely patent great vessels off abdominal aorta. 2. Pattern suspicious for enterocolitis though rectosigmoid is somewhat spared. Limited constipation in question a distal large bowel. 3. Limited cholelithiasis reiterated. 4. Questionable segmental distal large bowel resection with suture line suspected as discussed above at sigmoid colon. 5. Consider potential interval distal esophagitis. The correlate further. Consider possible GI consultation. 6. [id number] anasarca suspected. Findings discussed with Dr. Walters with written down and read back verification 09/15/2018 3 o'clock p.m..
--- NOTE | 2018-09-15 15:19 | CP.PCM.CON ---
History of Present Illness - History of Present Illness History of Present Illness: This patient who is 43 years of age male known to me with end-stage renal disease on maintenance hemodialysis 3 times a week presented to the emergency room with elevated blood pressure apparently and complaining of multiple time of vomiting abdominal pain and he required to be admitted for further evaluation. Patient is known to be noncompliance with the dialysis noncompliance with medication or antihypertensive medication. He has significant past medical history related to cardiac ischemia in the past not sure he was in another hospital and we were not able to get the details of his past cardiac history also he is diabetic as well Casandra history not contributory Review of Systems - Constitutional Constitutional: Anorexia. absent: Chills - EENT Nose/Mouth/Throat: absent: Epistaxis, Nasal Discharge - Cardiovascular Cardiovascular: Palpitations. absent: Acrocyanosis, Dyspnea, Dyspnea on Exertion, Edema - Respiratory Respiratory: absent: Cough, Dyspnea - Gastrointestinal Gastrointestinal: Abdominal Pain, Cramping, Nausea, Vomiting. absent: Coffee Ground Emesis, Diarrhea - Genitourinary Genitourinary: Nocturia - Musculoskeletal Musculoskeletal: Muscle Weakness - Neurological Neurological: absent: Confusion, Focal Weakness, Syncope - Hematologic/Lymphatic Hematologic: absent: Easy Bleeding Past Patient History - Infectious Disease Hx of Infectious Diseases: None - Past Medical History & Family History Past Medical History?: Yes - Past Social History Smoking Status: Heavy Smoker > 10 Cigarettes Daily - CARDIAC Hx Atrial Fibrillation: No Hx Cardia Arrhythmia: No Hx Congestive Heart Failure: No Hx Hypercholesterolemia: Yes Hx Hypertension: Yes Hx Mitral Valve Prolapse: No Hx Pacemaker: No Hx Peripheral Edema: No - PULMONARY Hx Asthma: No Hx Bronchitis: No Hx Chronic Obstructive Pulmonary Disease (COPD): No Hx Emphysema: No Hx Pneumonia: No Hx Pulmonary Embolism: No Hx Sleep Apnea: No - NEUROLOGICAL Hx Alzheimer's Disease: No Hx Dementia: No Hx Migraine: No Hx Multiple Sclerosis: No Hx Parkinson's Disease: No Hx Seizures: No Hx Transient Ischemic Attacks (TIA): No - HEENT Hx HEENT Problems: Yes Hx Blind: No Hx Cataracts: Yes Hx Deafness: No Hx Difficulty Chewing: No Hx Epistaxis: No Hx Glaucoma: No Hx Macular Degeneration: Yes - RENAL Hx Chronic Kidney Disease: Yes Hx Kidney Stones: No - ENDOCRINE/METABOLIC Hx Hyperthyroidism: No Hx Hypothyroidism: No - HEMATOLOGICAL/ONCOLOGICAL Hx Anemia: Yes Hx Human Immunodeficiency Virus (HIV): No Hx Sickle Cell Disease: No - INTEGUMENTARY Hx Dermatological Problems: Yes Hx Basil Cell: No Hx Haynes: No Hx Cellulitis: No Hx Eczema: No Hx Melanoma: No Hx Psoriasis: No Hx Squamous Cell: No Other/Comment: H/O skin abscesses - MUSCULOSKELETAL/RHEUMATOLOGICAL Hx Arthritis: No Hx Fractures: No Hx Osteoporosis: No Hx Rheumatoid Arthritis: No - GASTROINTESTINAL Hx Crohn's Disease: No Hx Diverticulitis: No Hx Gall Bladder Disease: No Hx Gastritis: No Hx Pancreatitis: No - GENITOURINARY/GYNECOLOGICAL Hx Sexually Transmitted Disorders: No - PSYCHIATRIC Hx Anxiety: Yes Hx Bipolar Disorder: No Hx Depression: Yes Hx Paranoia: No Hx Post Traumatic Stress Disorder: No Hx Schizophrenia: No - SURGICAL HISTORY Hx Appendectomy: No Hx Carotid Endarterectomy: No Hx Cholecystectomy: No Hx Coronary Artery Bypass Graft: No Hx Coronary Stent: No Hx Tonsillectomy: No - ANESTHESIA Hx Anesthesia: Yes Hx Anesthesia Reactions: No Hx Malignant Hyperthermia: No Meds Allergies/Adverse Reactions: Allergies Allergy/AdvReac Type Severity Reaction Status Date / Time Penicillins Allergy RASH Verified 09/05/18 17:57 - Medications Medications: Current Medications Hydralazine HCl (Apresoline) 10 mg IV STAT STA Stop: 09/15/18 15:14 Physical Exam - Constitutional Appears: No Acute Distress - Eye Exam Eye Exam: Conjunctival injection - ENT Exam ENT Exam: Mucous Membranes Moist - Neck Exam Neck exam: Negative for: Lymphadenopathy - Respiratory Exam Respiratory Exam: NORMAL BREATHING PATTERN. absent: Chest Wall Tenderness - Cardiovascular Exam Cardiovascular Exam: absent: Gallop, JVD, Rubs - GI/Abdominal Exam GI & Abdominal Exam: Guarding, Normal Bowel Sounds. absent: Organomegaly - Extremities Exam Extremities exam: Negative for: calf tenderness - Back Exam Back exam: absent: CVA tenderness (L), CVA tenderness (R) - Neurological Exam Neurological exam: Alert Results - Vital Signs Recent Vital Signs: Last Vital Signs Temp 97.3 F L 09/15/18 11:46 Pulse 75 09/15/18 12:34 Resp 18 09/15/18 11:46 BP 284/100 H 09/15/18 12:34 Pulse Ox 100 09/15/18 14:42 - Labs Result Diagrams: 09/15/18 12:18 09/15/18 12:18 Labs: Laboratory Results - last 24 hr 09/15/18 09/15/18 09/15/18 11:55 12:18 12:18 WBC 11.1 H RBC 3.80 L Hgb 12.5 Hct 36.9 MCV 96.9 H MCH 32.8 H MCHC 33.9 RDW 13.3 Plt Count 284 MPV 8.4 Neut % (Auto) 90.4 H Lymph % (Auto) 5.2 L [place] % (Auto) 3.1 Eos % (Auto) 0.4 Baso % (Auto) 0.9 Neut # (Auto) 10.1 H Lymph # (Auto) 0.6 L [place] # (Auto) 0.3 Eos # (Auto) 0.0 Baso # (Auto) 0.1 Neutrophils % (Manual) 89 H Lymphocytes % (Manual) 7 L Monocytes % (Manual) 3 Basophils % (Manual) 1 Platelet Estimate Normal RBC Morphology Normal PT INR APTT pO2 VBG pH VBG pCO2 VBG HCO3 VBG Total CO2 VBG O2 Sat (Calc) VBG Base Excess VBG Potassium Glucose Lactate FiO2 Crit Value Called To Crit Value Called By Crit Value Read Back Blood Gas Notified Time Sodium 128 L Potassium 4.8 Chloride 83 L Carbon Dioxide 26 Anion Gap 24 H BUN 72 H Creatinine 10.7 H* D Est GFR ( Amer) 6 Est GFR (Non-Af Amer) 5 POC Glucose (mg/dL) > 500 H* Random Glucose 675 H* D Calcium 10.9 H Total Bilirubin 0.5 AST 28 ALT 26 Alkaline Phosphatase 81 Troponin I 0.0210 Total Protein 8.0 Albumin 4.8 Globulin 3.1 Albumin/Globulin Ratio 1.5 Venous Blood Potassium 09/15/18 09/15/18 12:18 12:29 WBC RBC Hgb Hct MCV MCH MCHC RDW Plt Count MPV Neut % (Auto) Lymph % (Auto) [place] % (Auto) Eos % (Auto) Baso % (Auto) Neut # (Auto) Lymph # (Auto) [place] # (Auto) Eos # (Auto) Baso # (Auto) Neutrophils % (Manual) Lymphocytes % (Manual) Monocytes % (Manual) Basophils % (Manual) Platelet Estimate RBC Morphology PT 9.6 L INR 0.8 APTT 34.2 pO2 42 VBG pH 7.47 H VBG pCO2 36 L VBG HCO3 26.6 VBG Total CO2 27.3 VBG O2 Sat (Calc) 87.1 H VBG Base Excess 2.7 H VBG Potassium 4.9 Glucose > 750 H* D Lactate 1.9 FiO2 21.0 Crit Value Called To jesus alberto Walters md Crit Value Called By Tong barone Crit Value Read Back Y Blood Gas Notified Time 1240 Sodium 126.0 L Potassium Chloride 84.0 L Carbon Dioxide Anion Gap BUN Creatinine Est GFR ( Amer) Est GFR (Non-Af Amer) POC Glucose (mg/dL) Random Glucose Calcium Total Bilirubin AST ALT Alkaline Phosphatase Troponin I Total Protein Albumin Globulin Albumin/Globulin Ratio Venous Blood Potassium 4.9 Assessment & Plan (1) Abdominal pain Status: Acute - Assessment and Plan (Free Text) Assessment: End-stage renal disease admitted with hypertensive crisis accompanied with some abdominal pain and vomiting. Patient appears to be stable now and continue hemodialysis as scheduled Continue phosphorus binder and antihypertensive medication as he has been taking because he is not compliance Patient has been taking metoprolol Apresoline Norvasc clonidine Continue monitoring If blood pressure still elevated he may need labetalol intravenously Uncontrolled glucose patient need diabetic control as per primary team
--- NOTE | 2018-09-15 17:03 | CP.PCM.HP ---
Past Patient History - Infectious Disease Hx of Infectious Diseases: None - Past Medical History & Family History Past Medical History?: Yes - Past Social History Smoking Status: Heavy Smoker > 10 Cigarettes Daily - CARDIAC Hx Atrial Fibrillation: No Hx Cardia Arrhythmia: No Hx Congestive Heart Failure: No Hx Hypercholesterolemia: Yes Hx Hypertension: Yes Hx Mitral Valve Prolapse: No Hx Pacemaker: No Hx Peripheral Edema: No - PULMONARY Hx Asthma: No Hx Bronchitis: No Hx Chronic Obstructive Pulmonary Disease (COPD): No Hx Emphysema: No Hx Pneumonia: No Hx Pulmonary Embolism: No Hx Sleep Apnea: No - NEUROLOGICAL Hx Alzheimer's Disease: No Hx Dementia: No Hx Migraine: No Hx Multiple Sclerosis: No Hx Parkinson's Disease: No Hx Seizures: No Hx Transient Ischemic Attacks (TIA): No - HEENT Hx HEENT Problems: Yes Hx Blind: No Hx Cataracts: Yes Hx Deafness: No Hx Difficulty Chewing: No Hx Epistaxis: No Hx Glaucoma: No Hx Macular Degeneration: Yes - RENAL Hx Chronic Kidney Disease: Yes Hx Kidney Stones: No - ENDOCRINE/METABOLIC Hx Hyperthyroidism: No Hx Hypothyroidism: No - HEMATOLOGICAL/ONCOLOGICAL Hx Anemia: Yes Hx Human Immunodeficiency Virus (HIV): No Hx Sickle Cell Disease: No - INTEGUMENTARY Hx Dermatological Problems: Yes Hx Basil Cell: No Hx Haynes: No Hx Cellulitis: No Hx Eczema: No Hx Melanoma: No Hx Psoriasis: No Hx Squamous Cell: No Other/Comment: H/O skin abscesses - MUSCULOSKELETAL/RHEUMATOLOGICAL Hx Arthritis: No Hx Fractures: No Hx Osteoporosis: No Hx Rheumatoid Arthritis: No - GASTROINTESTINAL Hx Crohn's Disease: No Hx Diverticulitis: No Hx Gall Bladder Disease: No Hx Gastritis: No Hx Pancreatitis: No - GENITOURINARY/GYNECOLOGICAL Hx Sexually Transmitted Disorders: No - PSYCHIATRIC Hx Anxiety: Yes Hx Bipolar Disorder: No Hx Depression: Yes Hx Paranoia: No Hx Post Traumatic Stress Disorder: No Hx Schizophrenia: No - SURGICAL HISTORY Hx Appendectomy: No Hx Carotid Endarterectomy: No Hx Cholecystectomy: No Hx Coronary Artery Bypass Graft: No Hx Coronary Stent: No Hx Tonsillectomy: No - ANESTHESIA Hx Anesthesia: Yes Hx Anesthesia Reactions: No Hx Malignant Hyperthermia: No Meds Allergies/Adverse Reactions: Allergies Allergy/AdvReac Type Severity Reaction Status Date / Time Penicillins Allergy RASH Verified 09/05/18 17:57 Results - Vital Signs Recent Vital Signs: Last Vital Signs Temp 97.3 F L 09/15/18 11:46 Pulse 74 09/15/18 16:10 Resp 20 09/15/18 15:56 BP 174/90 H 09/15/18 16:10 Pulse Ox 98 09/15/18 15:56 - Labs Result Diagrams: 09/15/18 12:18 09/15/18 12:18 Labs: Laboratory Results - last 24 hr 09/15/18 09/15/18 09/15/18 11:55 12:18 12:18 WBC 11.1 H RBC 3.80 L Hgb 12.5 Hct 36.9 MCV 96.9 H MCH 32.8 H MCHC 33.9 RDW 13.3 Plt Count 284 MPV 8.4 Neut % (Auto) 90.4 H Lymph % (Auto) 5.2 L Bibb % (Auto) 3.1 Eos % (Auto) 0.4 Baso % (Auto) 0.9 Neut # (Auto) 10.1 H Lymph # (Auto) 0.6 L Bibb # (Auto) 0.3 Eos # (Auto) 0.0 Baso # (Auto) 0.1 Neutrophils % (Manual) 89 H Lymphocytes % (Manual) 7 L Monocytes % (Manual) 3 Basophils % (Manual) 1 Platelet Estimate Normal RBC Morphology Normal PT INR APTT pO2 VBG pH VBG pCO2 VBG HCO3 VBG Total CO2 VBG O2 Sat (Calc) VBG Base Excess VBG Potassium Glucose Lactate FiO2 Crit Value Called To Crit Value Called By Crit Value Read Back Blood Gas Notified Time Sodium 128 L Potassium 4.8 Chloride 83 L Carbon Dioxide 26 Anion Gap 24 H BUN 72 H Creatinine 10.7 H* D Est GFR ( Amer) 6 Est GFR (Non-Af Amer) 5 POC Glucose (mg/dL) > 500 H* Random Glucose 675 H* D Calcium 10.9 H Total Bilirubin 0.5 AST 28 ALT 26 Alkaline Phosphatase 81 Troponin I 0.0210 Total Protein 8.0 Albumin 4.8 Globulin 3.1 Albumin/Globulin Ratio 1.5 Venous Blood Potassium 09/15/18 09/15/18 09/15/18 12:18 12:29 15:16 WBC RBC Hgb Hct MCV MCH MCHC RDW Plt Count MPV Neut % (Auto) Lymph % (Auto) Bibb % (Auto) Eos % (Auto) Baso % (Auto) Neut # (Auto) Lymph # (Auto) Bibb # (Auto) Eos # (Auto) Baso # (Auto) Neutrophils % (Manual) Lymphocytes % (Manual) Monocytes % (Manual) Basophils % (Manual) Platelet Estimate RBC Morphology PT 9.6 L INR 0.8 APTT 34.2 pO2 42 VBG pH 7.47 H VBG pCO2 36 L VBG HCO3 26.6 VBG Total CO2 27.3 VBG O2 Sat (Calc) 87.1 H VBG Base Excess 2.7 H VBG Potassium 4.9 Glucose > 750 H* D Lactate 1.9 FiO2 21.0 Crit Value Called To jesus alberto Walters md Crit Value Called By Tong barone Crit Value Read Back Y Blood Gas Notified Time 1240 Sodium 126.0 L Potassium Chloride 84.0 L Carbon Dioxide Anion Gap BUN Creatinine Est GFR ( Amer) Est GFR (Non-Af Amer) POC Glucose (mg/dL) > 500 H* Random Glucose Calcium Total Bilirubin AST ALT Alkaline Phosphatase Troponin I Total Protein Albumin Globulin Albumin/Globulin Ratio Venous Blood Potassium 4.9 09/15/18 16:44 WBC RBC Hgb Hct MCV MCH MCHC RDW Plt Count MPV Neut % (Auto) Lymph % (Auto) Bibb % (Auto) Eos % (Auto) Baso % (Auto) Neut # (Auto) Lymph # (Auto) Bibb # (Auto) Eos # (Auto) Baso # (Auto) Neutrophils % (Manual) Lymphocytes % (Manual) Monocytes % (Manual) Basophils % (Manual) Platelet Estimate RBC Morphology PT INR APTT pO2 VBG pH VBG pCO2 VBG HCO3 VBG Total CO2 VBG O2 Sat (Calc) VBG Base Excess VBG Potassium Glucose Lactate FiO2 Crit Value Called To Crit Value Called By Crit Value Read Back Blood Gas Notified Time Sodium Potassium Chloride Carbon Dioxide Anion Gap BUN Creatinine Est GFR ( Amer) Est GFR (Non-Af Amer) POC Glucose (mg/dL) 438 H* Random Glucose Calcium Total Bilirubin AST ALT Alkaline Phosphatase Troponin I Total Protein Albumin Globulin Albumin/Globulin Ratio Venous Blood Potassium Assessment & Plan (1) Hypertensive urgency Status: Acute (2) Hyponatremia Status: Acute (3) ESRD (end stage renal disease) on dialysis Status: Acute (4) Hyperosmolarity syndrome Status: Acute
--- NOTE | 2018-09-15 18:32 | CT ---
Date of service: 09/15/2018 PROCEDURE: CT HEAD WITHOUT CONTRAST. HISTORY: Hypertension, vomiting and uremia. COMPARISON: 03/18/2015. TECHNIQUE: Axial computed tomography images were obtained through the head/brain without intravenous contrast. Supplemental Coronal and Sagittal projections created and reviewed. Radiation dose: Total exam DLP = 879.05 mGy-cm. This CT exam was performed using one or more of the following dose reduction techniques: Automated exposure control, adjustment of the mA and/or kV according to patient size, and/or use of iterative reconstruction technique. FINDINGS: HEMORRHAGE: No intracranial hemorrhage. BRAIN: No mass effect or edema. No atrophy or chronic microvascular ischemic changes. VENTRICLES: Unremarkable. No hydrocephalus. CALVARIUM: Unremarkable. PARANASAL SINUSES: Unremarkable as visualized. No significant inflammatory changes. MASTOID AIR CELLS: Unremarkable as visualized. No inflammatory changes. OTHER FINDINGS: None. IMPRESSION: No acute intracranial abnormalities. No significant findings to account for the clinical presentation. No significant interval change compared to the prior examination(s). Limitations of the current examination: Although ordered/requested as an unenhanced study. There is contrast enhancement related to recent CT of the abdomen and pelvis completed at 14:16 September 15, 2018.
[2018-09-15] MEDS ORDERED: Sodium Chloride 0.45% 1,000 ML IV SCH (19:15)
[2018-09-15] MEDS ORDERED: Lidocaine 2% GEL TOP ONE (20:33)
[2018-09-15] MEDS ORDERED: Lidocaine/Prilocaine CREAM 5GM TP ONE (20:41)
[2018-09-15] MEDS ORDERED: Insulin Lispro (humaLOG) 100 Units/ml Inj SC SCH (22:00)
--- NOTE | 2018-09-15 22:23 | CP.PCM.CON ---
History of Present Illness - History of Present Illness History of Present Illness: Attending: Joseph Sosa MD PMD: Hector Ewing Reason for Consult: Evaluation for ICU and Critical care management Chief complaint: Vomiting/Hyperglycemia not responding to treatment The patient was seen and examined in the Telemetry Unit while receiving Hemodialysis HPI: This is a 43 years old male with hx of HTN, DM I and ESRD on Hemodialysis. He comes with 2 days of abdominal pain, nausea, vomiting and a blood Pressure of 265/107mmHg. No fever, chills, headache, dizziness. He has continued with vomiting and retching with the abdominal pain, The blood Glucose is still elevated after multiple doses of Subcutaneous Insulin and his blood pressure is 234/94mmHg. PMH: Anemia, Anxiety, Depression, Diabetes (Types I), HTN, HLD, End Stage Renal Disease (on dialysis MWF), Macular degeneration; Cataract; Hx of skin Abscess PSH: HD fistula on left upper extremity; AICD on left chest wall Insulin Pump SH: No ETOH; Occasionar Marijuana; Heavy smoker; FH: Mother with DM and HTN Allergies: PCN Medication: Reviewed Review of Systems - Constitutional Constitutional: absent: Anorexia, Chills, Fever, Headache - EENT Eyes: Requires Corrective Lenses. absent: Blurred Vision, Diplopia Ears: absent: Decreased Hearing, Ear Discharge, Ear Pain, Tinnitus Nose/Mouth/Throat: absent: Epistaxis, Nasal Congestion, Nasal Discharge - Cardiovascular Cardiovascular: absent: Chest Pain, Dyspnea, Edema - Respiratory Respiratory: absent: Cough, Dyspnea, Stridor - Gastrointestinal Gastrointestinal: Abdominal Pain, Nausea, Vomiting. absent: Constipation, Diarrhea - Genitourinary Genitourinary: absent: Flank Pain - Musculoskeletal Musculoskeletal: absent: Arthralgias, Neck Pain, Stiffness - Integumentary Integumentary: absent: Pruritus, Rash, Sores, Striae, Swelling - Neurological Neurological: absent: Confusion, Focal Weakness, Headaches, Weakness - Psychiatric Psychiatric: Anxiety, Depression - Endocrine Endocrine: absent: Palpitations, Polydipsia, Polyphagia, Polyuria - Hematologic/Lymphatic Hematologic: absent: Easy Bleeding, Easy Bruising Past Patient History - Infectious Disease Hx of Infectious Diseases: None - Past Medical History & Family History Past Medical History?: Yes - Past Social History Smoking Status: Heavy Smoker > 10 Cigarettes Daily Chewing Tobacco Use: No Cigar Use: No Alcohol: None Drugs: Denies - CARDIAC Hx Atrial Fibrillation: No Hx Cardia Arrhythmia: No Hx Congestive Heart Failure: No Hx Hypercholesterolemia: Yes Hx Hypertension: Yes Hx Mitral Valve Prolapse: No Hx Pacemaker: No Hx Peripheral Edema: No - PULMONARY Hx Asthma: No Hx Bronchitis: No Hx Chronic Obstructive Pulmonary Disease (COPD): No Hx Emphysema: No Hx Pneumonia: No Hx Pulmonary Embolism: No Hx Sleep Apnea: No - NEUROLOGICAL Hx Alzheimer's Disease: No Hx Dementia: No Hx Migraine: No Hx Multiple Sclerosis: No Hx Parkinson's Disease: No Hx Seizures: No Hx Transient Ischemic Attacks (TIA): No - HEENT Hx HEENT Problems: Yes Hx Cataracts: Yes Hx Macular Degeneration: Yes - RENAL Hx Chronic Kidney Disease: Yes - ENDOCRINE/METABOLIC Hx Diabetes Mellitus Type 1: Yes Hx Hyperthyroidism: No Hx Hypothyroidism: No - HEMATOLOGICAL/ONCOLOGICAL Hx Anemia: Yes Hx Human Immunodeficiency Virus (HIV): No Hx Sickle Cell Disease: No - INTEGUMENTARY Hx Dermatological Problems: No - MUSCULOSKELETAL/RHEUMATOLOGICAL Hx Arthritis: No Hx Fractures: No Hx Osteoporosis: No Hx Rheumatoid Arthritis: No - GASTROINTESTINAL Hx Crohn's Disease: No Hx Diverticulitis: No Hx Gall Bladder Disease: No Hx Gastritis: No Hx Pancreatitis: No - GENITOURINARY/GYNECOLOGICAL Hx Sexually Transmitted Disorders: No - PSYCHIATRIC Hx Anxiety: Yes Hx Bipolar Disorder: No Hx Depression: Yes Hx Paranoia: No Hx Post Traumatic Stress Disorder: No Hx Schizophrenia: No - SURGICAL HISTORY Hx Appendectomy: No Hx Carotid Endarterectomy: No Hx Cholecystectomy: No Hx Coronary Artery Bypass Graft: No Hx Coronary Stent: No Hx Tonsillectomy: No - ANESTHESIA Hx Anesthesia: Yes Hx Anesthesia Reactions: No Hx Malignant Hyperthermia: No Meds Allergies/Adverse Reactions: Allergies Allergy/AdvReac Type Severity Reaction Status Date / Time Penicillins Allergy RASH Verified 09/05/18 17:57 - Medications Medications: Current Medications Amlodipine Besylate (Norvasc) 10 mg PO DAILY [facility] Clonidine HCl (Catapres) 0.3 mg PO TID [facility] Hydralazine HCl (Apresoline) 100 mg PO BID [facility] Hydralazine HCl (Apresoline) 10 mg IV Q6 PRN PRN Reason: SBP>180 or HR>110 Sodium Chloride (Sodium Chloride 0.45%) 1,000 mls @ 50 mls/hr IV .Q20H [facility] Stop: 09/16/18 19:12 Insulin Human Lispro (Humalog) 0 units [facility]; Protocol Ondansetron HCl (Zofran Inj) 4 mg IVP Q6 PRN PRN Reason: Nausea/Vomiting Last Admin: 09/15/18 19:11 Dose: 4 mg Pantoprazole Sodium (Protonix Inj) 40 mg IVP DAILY [facility] Sevelamer Carbonate (Renvela) 2.4 gm PO TIDWM [facility] Physical Exam - Constitutional Appears: In Acute Distress - Head Exam Head Exam: ATRAUMATIC, NORMAL INSPECTION, NORMOCEPHALIC - Eye Exam Eye Exam: EOMI, Normal appearance Pupil Exam: NORMAL ACCOMODATION, PERRL - ENT Exam ENT Exam: Mucous Membranes Moist, Normal Exam - Neck Exam Neck exam: Positive for: Full Rom, Normal Inspection. Negative for: Lymphadenopathy, Tenderness - Respiratory Exam Respiratory Exam: Clear to Auscultation Bilateral. absent: Rales, Rhonchi, Wheezes - Cardiovascular Exam Cardiovascular Exam: REGULAR RHYTHM, RRR, +S1, +S2. absent: Gallop, Rubs - GI/Abdominal Exam GI & Abdominal Exam: Normal Bowel Sounds, Soft, Tenderness. absent: Guarding, Mass, Organomegaly - Rectal Exam Rectal Exam: Deferred - Extremities Exam Extremities exam: Positive for: calf tenderness, full ROM, normal inspection - Back Exam Back exam: NORMAL INSPECTION. absent: CVA tenderness (L), CVA tenderness (R) - Neurological Exam Neurological exam: Alert, CN II-XII Intact, Oriented x3, Reflexes Normal - Psychiatric Exam Psychiatric exam: Anxious, Normal Affect - Skin Skin Exam: Dry, Normal Color, Warm Results - Vital Signs Recent Vital Signs: Last Vital Signs Temp 98.5 F 09/15/18 21:04 Pulse 75 09/15/18 21:04 Resp 18 09/15/18 21:04 BP 234/94 H 09/15/18 21:04 Pulse Ox 97 09/15/18 21:04 - Labs Result Diagrams: 09/15/18 12:18 09/15/18 12:18 Labs: Laboratory Results - last 24 hr 09/15/18 09/15/18 09/15/18 11:55 12:18 12:18 WBC 11.1 H RBC 3.80 L Hgb 12.5 Hct 36.9 MCV 96.9 H MCH 32.8 H MCHC 33.9 RDW 13.3 Plt Count 284 MPV 8.4 Neut % (Auto) 90.4 H Lymph % (Auto) 5.2 L [place] % (Auto) 3.1 Eos % (Auto) 0.4 Baso % (Auto) 0.9 Neut # (Auto) 10.1 H Lymph # (Auto) 0.6 L [place] # (Auto) 0.3 Eos # (Auto) 0.0 Baso # (Auto) 0.1 Neutrophils % (Manual) 89 H Lymphocytes % (Manual) 7 L Monocytes % (Manual) 3 Basophils % (Manual) 1 Platelet Estimate Normal RBC Morphology Normal PT INR APTT pO2 VBG pH VBG pCO2 VBG HCO3 VBG Total CO2 VBG O2 Sat (Calc) VBG Base Excess VBG Potassium Glucose Lactate FiO2 Crit Value Called To Crit Value Called By Crit Value Read Back Blood Gas Notified Time Sodium 128 L Potassium 4.8 Chloride 83 L Carbon Dioxide 26 Anion Gap 24 H BUN 72 H Creatinine 10.7 H* D Est GFR ( Amer) 6 Est GFR (Non-Af Amer) 5 POC Glucose (mg/dL) > 500 H* Random Glucose 675 H* D Calcium 10.9 H Total Bilirubin 0.5 AST 28 ALT 26 Alkaline Phosphatase 81 Troponin I 0.0210 Total Protein 8.0 Albumin 4.8 Globulin 3.1 Albumin/Globulin Ratio 1.5 Lipase TSH 3rd Generation Venous Blood Potassium 09/15/18 09/15/18 09/15/18 12:18 12:29 15:16 WBC RBC Hgb Hct MCV MCH MCHC RDW Plt Count MPV Neut % (Auto) Lymph % (Auto) [place] % (Auto) Eos % (Auto) Baso % (Auto) Neut # (Auto) Lymph # (Auto) [place] # (Auto) Eos # (Auto) Baso # (Auto) Neutrophils % (Manual) Lymphocytes % (Manual) Monocytes % (Manual) Basophils % (Manual) Platelet Estimate RBC Morphology PT 9.6 L INR 0.8 APTT 34.2 pO2 42 VBG pH 7.47 H VBG pCO2 36 L VBG HCO3 26.6 VBG Total CO2 27.3 VBG O2 Sat (Calc) 87.1 H VBG Base Excess 2.7 H VBG Potassium 4.9 Glucose > 750 H* D Lactate 1.9 FiO2 21.0 Crit Value Called To jesus alberto Walters md Crit Value Called By Tong barone Crit Value Read Back Y Blood Gas Notified Time 1240 Sodium 126.0 L Potassium Chloride 84.0 L Carbon Dioxide Anion Gap BUN Creatinine Est GFR ( Amer) Est GFR (Non-Af Amer) POC Glucose (mg/dL) > 500 H* Random Glucose Calcium Total Bilirubin AST ALT Alkaline Phosphatase Troponin I Total Protein Albumin Globulin Albumin/Globulin Ratio Lipase TSH 3rd Generation Venous Blood Potassium 4.9 09/15/18 09/15/18 09/15/18 16:44 17:22 21:11 WBC RBC Hgb Hct MCV MCH MCHC RDW Plt Count MPV Neut % (Auto) Lymph % (Auto) [place] % (Auto) Eos % (Auto) Baso % (Auto) Neut # (Auto) Lymph # (Auto) [place] # (Auto) Eos # (Auto) Baso # (Auto) Neutrophils % (Manual) Lymphocytes % (Manual) Monocytes % (Manual) Basophils % (Manual) Platelet Estimate RBC Morphology PT INR APTT pO2 VBG pH VBG pCO2 VBG HCO3 VBG Total CO2 VBG O2 Sat (Calc) VBG Base Excess VBG Potassium Glucose Lactate FiO2 Crit Value Called To Crit Value Called By Crit Value Read Back Blood Gas Notified Time Sodium Potassium Chloride Carbon Dioxide Anion Gap BUN Creatinine Est GFR ( Amer) Est GFR (Non-Af Amer) POC Glucose (mg/dL) 438 H* > 500 H* Random Glucose Calcium Total Bilirubin AST ALT Alkaline Phosphatase Troponin I Total Protein Albumin Globulin Albumin/Globulin Ratio Lipase 224 TSH 3rd Generation 1.94 Venous Blood Potassium - Imaging and Cardiology CT scan - abdomen Status: Report reviewed by me Additional comment: 09/15/2018 PROCEDURE: CT Abdomen and Pelvis with contrast FINDINGS: LOWER THORAX: Bilateral basilar dependent atelectasis identified with borderline cardiomegaly. No pleural or pericardial effusion evident. There is prominent thickening of the distal esophagus suspicious for potential interval esophagitis. GI consultation recommended. LIVER: Unremarkable as imaged. GALLBLADDER AND BILE DUCTS: Unremarkable. PANCREAS: Unremarkable. No gross lesion or ductal dilatation. SPLEEN: Unremarkable. ADRENALS: Unremarkable. No mass. KIDNEYS AND URETERS: No obstructive uropathy or radiodense urolithiasis bilaterally. A few sub cm lucency is seen at the cortex of the bilateral kidneys too small to characterize. VASCULATURE: No evidence of abdominal aortic aneurysm or dissection. The visualized inferior thoracic aortic segment appears normal in caliber and enhancement as well. Note is made of minimal mural atherosclerotic calcified plaque at the abdominal aorta. Celiac and superior mesenteric arteries appear widely patent as well as the celiac axis. Bilateral renal arteries are patent as well as the inferior mesenteric artery. Bilateral common iliac arteries are widely patent as well as external iliac and common femoral arteries. BOWEL: No bowel obstruction is evident however there is questionable thickening of smal l and large bowel suspicious for enterocolitis with only possible sparing of the distal rectosigmoid. Postoperative changes are question related to a sigmoid segment. Relatively prominent retained fecal material seen at the rectosigmoid segment which may indicate an element of limited constipation. APPENDIX: Identified. No definite CT evidence of appendicitis at this time. PERITONEUM: Increased density of the perineal as well as extra abdominal fat may indicate anasarca. LYMPH NODES: Unremarkable. No enlarged lymph nodes. BLADDER: Gross mural thickening is reiterated suspicious for chronic cystitis of infectious or inflammatory etiology though other causes including neoplasm not excluded. REPRODUCTIVE: Unremarkable. BONES: Chronic anterior wedge compression fracture L4 stable. OTHER FINDINGS: None. IMPRESSION: 1. No CT evidence of abdominal aortic or inferior thoracic aortic dissection or aneurysm. Widely patent great vessels off abdominal aorta. 2. Pattern suspicious for enterocolitis though rectosigmoid is somewhat spared. Limited constipation in question a distal large bowel. 3. Limited cholelithiasis reiterated. 4. Questionable segmental distal large bowel resection with suture line suspected as discussed above at sigmoid colon. 5. Consider potential interval distal esophagitis. The correlate further. Consider possible GI consultation. 6. [id number] anasarca suspected. CT scan - head Status: Report reviewed by me Additional comment: Date of service: 09/15/2018 PROCEDURE: CT HEAD WITHOUT CONTRAST. FINDINGS: HEMORRHAGE: No intracranial hemorrhage. BRAIN: No mass effect or edema. No atrophy or chronic microvascular ischemic changes. VENTRICLES: Unremarkable. No hydrocephalus. CALVARIUM: Unremarkable. PARANASAL SINUSES: Unremarkable as visualized. No significant inflammatory changes. MASTOID AIR CELLS: Unremarkable as visualized. No inflammatory changes. OTHER FINDINGS: None. IMPRESSION: No acute intracranial abnormalities. No significant findings to account for the clinical presentation. No significant interval change compared to the prior examination(s). Assessment & Plan - Assessment and Plan (Free Text) Plan: 43 years old male with hx of HTN, DM I and ESRD on Hemodialysis. He comes with 2 days of abdominal pain, nausea, vomiting and a blood Pressure of 265/107mmHg. No fever, chills, headache, dizziness. He has continued with vomiting and retching with the abdominal pain, The blood Glucose is still elevated after multiple doses of Subcutaneous Insulin and his blood pressure is 234/94mmHg. #. Abdominal pain most likely secondary to the muscular fatigue due to the vomiting of Gastroparesis - Reglan - Control Diabetes #. Hyperosmolar Hyperglycemic state. The patient not Acidic and has minimal elevation in Anion Gap, So no DKA at present. This is a Renal patient and hydration has to be balanced with volume overload. - Mild rehydration with normal saline - I agree with an Insulin drip of low dosage - Accucheck Q1H - Follow electrolytes #. Hyperensive Urgency. The patient received Hydralazine intraceniously - Continue IV Hydralazine PRN - Clonidine - Norvas - Lopressor #. ESRD on Hemodialysis MWF - Dr Salomon on consult #.Anxiety /Depressive disorder - Klonopin - Duloxetine #. Code Status: Full Khoa Ortiz MD - Date & Time Date: 09/15/18 Time: 22:23
[2018-09-15] MEDS ORDERED: Dextrose 50% SYRINGE Inj (50 ml) IV PRN (23:20)
[2018-09-15] MEDS ORDERED: Glucagon Recombinant 1 mg Inj IM PRN (23:20)
[2018-09-16 03:16] LABS: VENOUS BLOOD GAS BASE EXCESS -3.4 mmol/L (0.0-2.0); VENOUS BLOOD GAS PCO2 32 mmHg (40-60); VENOUS BLOOD GAS PO2 68 mm/Hg (30-55); VENOUS BLOOD PH 7.41 (7.32-7.43)
[2018-09-16 03:44] LABS: CALCIUM 9.5 mg/dL (8.4-10.2)
[2018-09-16 05:14] LABS: HEMOGLOBIN 10.9 g/dL (12.0-18.0); MEAN CELL VOLUME 96.6 fl (80.0-94.0); MEAN CORPUSCULAR HEMOGLOBIN 32.5 pg (27.0-31.0); MEAN CORPUSCULAR HGB CONC 33.6 g/dL (33.0-37.0); RBC 3.35 Mil/uL (4.40-5.90); RED CELL DISTRIBUTION WIDTH 13.3 % (11.5-14.5); WHITE BLOOD COUNT 23.1 K/uL (4.8-10.8)
--- NOTE | 2018-09-16 08:22 | CP.CCUPN ---
CCU Subjective - Physician Review Subjective (Free Text): c/o hunger, needle fell out from insulin pump, BS levels have been in mid 300s overnight. denies any increased thirst, still +nausea but wants food. Mostly low grade temps overnight, denies any sensation of fevers or chills, nor diaphoresis. ROS: No other pertinent negs or positive on 10+ system review. Other PMSFH: All other Nursing and physician documentation reviewed to date; no new pertinent info noted relevant to current medical problems. EXAM- HEENT: no icterus, pupils equal, 3 mm and reactive, no nystagmus NECK: no visible JVD, supple, carotids equal upstroke bilat/no bruits CHEST: decreased BS bases, no wheezes audible HEART: regular, distant, S1S2, no murmur audible, no rubs. ABD: soft, no distention, no focal tenderness, BS hypoactive. EXT: no edema, no mottling, warm, no cyanosis, no calf tenderness or palpable cords, distal pulses intact and symmetrical, LUE AVS with good buit and thrill NEURO: no gross focal motor deficits SKIN: warm and dry, no rashes LABS: WBC= 23.1 HGB= 10.9 PLTs = 231K Na= 134 K= 4.5 Cl= 92 HCO3= 19 BUN/Cr= 30/4.9 BS= 349 VBG 7.41/32/68 Lactate 2.4. IMPRESSION / MAJOR PROBLEMS NOW: 1. Uncontrolled DM II on insulin pump therapy, serum osmo level yesterday below that for hyperosmolar state. 2. Accelerated HTN 3. ESRD on HD PLAN: 1. HD as tolerated. 2. Patient noted to be on both Insulin pump regimen whereby he was still giving himself insulin boluses while on insulin drip. Will stop drip now, allow mod-CC/ renal diet and follow BS trends. 3. Cautious IVF hydration in-between HD sessions to avoid further acidosis from hyperglycemia. 4. Endocrinology eval for insulin pump regulation. 5. Antihypertensive meds reviewed and compared to Home meds, Clonidine and Hydralzine dosing increased, resume Metoprolol. 6. Repeat serial Lactates. No clinical evidence of any septic physiology occurring at this time.
[2018-09-16] MEDS: Sevelamer Carb 0.8 gm/Packet PO SCH ×3 (10:29→16:54)
[2018-09-16 16:11] VITALS: TEMP 98
[2018-09-16] MEDS ORDERED: Dextrose 5%/0.45% NS 1,000 ML IV SCH (16:45)
[2018-09-16 18:00] VITALS: BP 125/61; PULSE 72; RESP 13; O2SAT 97
--- NOTE | 2018-09-16 18:26 | CP.PCM.PN ---
Subjective - Date & Time of Evaluation Date of Evaluation: 09/16/18 Time of Evaluation: 18:23 - Subjective Subjective: renal note no events overnight vitals reviewed heent normal op moist no jvd s1s2 present no resp distress abd soft skin normal cooperative esrd/htn/anemia/sec hyperpth hd mwf continue per schedule lytes ok bp continue current meds monitor phos levels continue binders anemia stable Objective - Vital Signs/Intake and Output Vital Signs (last 24 hours): Temp Pulse Resp BP Pulse Ox 98.0 F 72 13 125/61 97 09/16/18 16:00 09/16/18 17:59 09/16/18 17:59 09/16/18 17:59 09/16/18 17:59 Intake and Output: 09/16/18 09/16/18 06:59 18:59 Intake Total 0 867 Output Total 0 Balance 0 867 - Medications Medications: Current Medications Acetaminophen (Tylenol 325mg Tab) 650 mg PO Q6 PRN PRN Reason: Fever >100.4 F Last Admin: 09/16/18 04:36 Dose: 650 mg Alprazolam (Xanax) 0.5 mg PO Q12 PRN PRN Reason: Anxiety Last Admin: 09/16/18 11:16 Dose: 0.5 mg Amlodipine Besylate (Norvasc) 10 mg PO DAILY [facility] Last Admin: 09/16/18 10:29 Dose: 10 mg Clonidine HCl (Catapres) 0.3 mg PO TID [facility] Last Admin: 09/16/18 16:55 Dose: Not Given Dextrose (Dextrose 50% Inj) 0 ml IV STAT PRN; Protocol PRN Reason: Hypoglycemia Protocol Dextrose (Glutose 15) 0 gm PO ONCE PRN; Protocol PRN Reason: Hypoglycemia Protocol Glucagon (Glucagen Diagnostic Kit) 0 mg IM STAT PRN; Protocol PRN Reason: Hypoglycemia Protocol Hydralazine HCl (Apresoline) 100 mg PO BID [facility] Last Admin: 09/16/18 16:56 Dose: 100 mg Hydralazine HCl (Apresoline) 10 mg IV Q6 PRN PRN Reason: SBP>180 or HR>110 Dextrose/Sodium Chloride (Dextrose 5%/0.45% Ns 1000 Ml) 1,000 mls @ 100 mls/hr IV .Q10H [facility] Stop: 09/17/18 16:36 Last Admin: 09/16/18 16:50 Dose: 100 mls/hr Metoclopramide HCl (Reglan) 5 mg IVP Q6 PRN PRN Reason: Nausea/Vomiting Nicotine (Nicoderm Cq) 1 patch TD DAILY [facility] Last Admin: 09/16/18 09:13 Dose: 1 patch Pantoprazole Sodium (Protonix Inj) 40 mg IVP DAILY [facility] Last Admin: 09/16/18 09:13 Dose: 40 mg Sevelamer Carbonate (Renvela) 2.4 gm PO TIDWM [facility] Last Admin: 09/16/18 16:54 Dose: 2.4 gm - Labs Labs: 09/16/18 04:10 09/16/18 03:26 PT 9.6 Seconds (9.8-13.1) L 09/15/18 12:18 INR 0.8 09/15/18 12:18 APTT 34.2 Seconds (25.6-37.1) 09/15/18 12:18
--- NOTE | 2018-09-16 19:50 | CP.PCM.DIS ---
Provider - Provider Date of Admission: 09/15/18 13:20 Attending physician: Joseph Sosa MD Consults: 09/15/18 13:19 Nephrology Consult Stat Comment: Consulting Provider: Clement Salomon Consulting Physician: Clement Salomon Reason for Consult: emergent dialysis 09/15/18 13:53 Nephrology Consult Stat Comment: Consulting Provider: Marco Ruiz Consulting Physician: Marco Ruiz Reason for Consult: Urgent dialysis Diagnosis - Discharge Diagnosis (1) Hypertensive urgency Status: Acute (2) Hyponatremia Status: Acute (3) ESRD (end stage renal disease) on dialysis Status: Acute (4) Hyperosmolarity syndrome Status: Acute Hospital Course - Lab Results Lab Results: Most Recent Lab Values WBC 23.1 K/uL (4.8-10.8) H D 09/16/18 04:10 RBC 3.35 Mil/uL (4.40-5.90) L 09/16/18 04:10 Hgb 10.9 g/dL (12.0-18.0) L 09/16/18 04:10 Hct 32.3 % (35.0-51.0) L 09/16/18 04:10 MCV 96.6 fl (80.0-94.0) H 09/16/18 04:10 MCH 32.5 pg (27.0-31.0) H 09/16/18 04:10 MCHC 33.6 g/dL (33.0-37.0) 09/16/18 04:10 RDW 13.3 % (11.5-14.5) 09/16/18 04:10 Plt Count 231 K/uL (130-400) 09/16/18 04:10 MPV 8.4 fl (7.2-11.7) 09/15/18 12:18 Neut % (Auto) 90.4 % (50.0-75.0) H 09/15/18 12:18 Lymph % (Auto) 5.2 % (20.0-40.0) L 09/15/18 12:18 [place] % (Auto) 3.1 % (0.0-10.0) 09/15/18 12:18 Eos % (Auto) 0.4 % (0.0-4.0) 09/15/18 12:18 Baso % (Auto) 0.9 % (0.0-2.0) 09/15/18 12:18 Neut # (Auto) 10.1 K/uL (1.8-7.0) H 09/15/18 12:18 Lymph # (Auto) 0.6 K/uL (1.0-4.3) L 09/15/18 12:18 [place] # (Auto) 0.3 K/uL (0.0-0.8) 09/15/18 12:18 Eos # (Auto) 0.0 K/uL (0.0-0.7) 09/15/18 12:18 Baso # (Auto) 0.1 K/uL (0.0-0.2) 09/15/18 12:18 Neutrophils % (Manual) 89 % (42-75) H 09/15/18 12:18 Lymphocytes % (Manual) 7 % (20-50) L 09/15/18 12:18 Monocytes % (Manual) 3 % (0-10) 09/15/18 12:18 Basophils % (Manual) 1 % (0-2) 09/15/18 12:18 Platelet Estimate Normal (NORMAL) 09/15/18 12:18 RBC Morphology Normal (NORMAL) 09/15/18 12:18 PT 9.6 Seconds (9.8-13.1) L 09/15/18 12:18 INR 0.8 09/15/18 12:18 APTT 34.2 Seconds (25.6-37.1) 09/15/18 12:18 pO2 68 mm/Hg (30-55) H 09/16/18 03:04 VBG pH 7.41 (7.32-7.43) 09/16/18 03:04 VBG pCO2 32 mmHg (40-60) L 09/16/18 03:04 VBG HCO3 22.2 mmol/L 09/16/18 03:04 VBG Total CO2 21.3 mmol/L (22-28) L 09/16/18 03:04 VBG O2 Sat (Calc) 95.6 % (40-65) H 09/16/18 03:04 VBG Base Excess -3.4 mmol/L (0.0-2.0) L 09/16/18 03:04 VBG Potassium 4.5 mmol/L (3.6-5.2) 09/16/18 03:04 Sodium 131.0 mmol/L (132-148) L 09/16/18 03:04 Chloride 94.0 mmol/L (98-107) L 09/16/18 03:04 Glucose 356 mg/dL (75-110) H 09/16/18 03:04 Lactate 2.4 mmol/L (0.7-2.1) H 09/16/18 03:04 FiO2 21.0 % 09/16/18 03:04 Crit Value Called To jesus alberto Walters md 09/15/18 12:29 Crit Value Called By Tong barone 09/15/18 12:29 Crit Value Read Back Y 09/15/18 12:29 Blood Gas Notified Time 1240 09/15/18 12:29 Sodium 134 mmol/l (132-148) 09/16/18 03:26 Potassium 4.5 MMOL/L (3.6-5.0) 09/16/18 03:26 Chloride 92 mmol/L (98-107) L 09/16/18 03:26 Carbon Dioxide 19 mmol/L (22-30) L 09/16/18 03:26 Anion Gap 28 (10-20) H 09/16/18 03:26 BUN 30 mg/dl (9-20) H 09/16/18 03:26 Creatinine 4.9 mg/dl (0.8-1.5) H 09/16/18 03:26 Est GFR ( Amer) 16 09/16/18 03:26 Est GFR (Non-Af Amer) 13 09/16/18 03:26 POC Glucose (mg/dL) 68 mg/dL (65-110) 09/16/18 16:26 Random Glucose 349 mg/dL (75-110) H 09/16/18 03:26 Serum Osmolality 301 mosm/kg (272-300) H 09/16/18 03:26 Calcium 9.5 mg/dL (8.4-10.2) 09/16/18 03:26 Magnesium 2.0 MG/DL (1.6-2.3) 09/16/18 03:26 Total Bilirubin 0.5 mg/dl (0.2-1.3) 09/15/18 12:18 AST 28 U/L (17-59) 09/15/18 12:18 ALT 26 U/L (21-72) 09/15/18 12:18 Alkaline Phosphatase 81 U/L (38-126) 09/15/18 12:18 Troponin I 0.0210 ng/mL (0.00-0.120) 09/15/18 12:18 Total Protein 8.0 G/DL (6.3-8.2) 09/15/18 12:18 Albumin 4.8 g/dL (3.5-5.0) 09/15/18 12:18 Globulin 3.1 gm/dL (2.2-3.9) 09/15/18 12:18 Albumin/Globulin Ratio 1.5 (1.0-2.1) 09/15/18 12:18 Lipase 224 U/L (23-300) 09/15/18 17:22 TSH 3rd Generation 1.94 mIU/ML (0.46-4.68) 09/15/18 17:22 Venous Blood Potassium 4.5 mmol/L (3.6-5.2) 09/16/18 03:04 Discharge Exam - Head Exam Head Exam: ATRAUMATIC, NORMAL INSPECTION, NORMOCEPHALIC Discharge Plan - Follow Up Plan Condition: GOOD Disposition: HOME/ ROUTINE
== END 2018-09-16 20:30 | disposition home or self-care (01) | DRG 682 ==
LOC: H.ER 11:39 → H.ERHOLD 13:20 → H.TEL 20:22 → H.ICU/CCU 09-16 02:11
PROVIDERS: ADMIT Internal Medicine; ATTEND Internal Medicine
PROC: 5A1D70Z Performance of Urinary Filtration, Intermittent, Less than 6 Hours Per Day (ICD-10-PCS; principal; 2018-09-16)
DX: I12.0 Hypertensive chronic kidney disease with stage 5 chronic kidney disease or end stage renal disease (principal); N18.6 End stage renal disease; E87.0 Hyperosmolality and hypernatremia; E87.1 Hypo-osmolality and hyponatremia; E10.22 Type 1 diabetes mellitus with diabetic chronic kidney disease; I16.0 Hypertensive urgency; E78.5 Hyperlipidemia, unspecified; Z99.2 Dependence on renal dialysis; Z91.14 Patient's other noncompliance with medication regimen; Z91.15 Patient's noncompliance with renal dialysis; Z79.4 Long term (current) use of insulin; Z96.41 Presence of insulin pump (external) (internal); E10.65 Type 1 diabetes mellitus with hyperglycemia; D64.9 Anemia, unspecified; E78.00 Pure hypercholesterolemia, unspecified; F41.9 Anxiety disorder, unspecified; H35.30 Unspecified macular degeneration; I25.9 Chronic ischemic heart disease, unspecified; K59.00 Constipation, unspecified; Z82.49 Family history of ischemic heart disease and other diseases of the circulatory system; Z83.3 Family history of diabetes mellitus; Z87.891 Personal history of nicotine dependence; F32.9 Major depressive disorder, single episode, unspecified; H26.9 Unspecified cataract; Z79.899 Other long term (current) drug therapy